=== PATIENT | female | born 1935 | race Caucasian/White ===

== ENCOUNTER 2016-09-16 13:14 | Inpatient (IN) | payer MEDICARE, BC, OTHER ==
[~2016-09-16] VITALS: Ht 152.4 cm; Wt 60.2 kg
[~2016-09-16 13:14] MED LIST: ALBU17IN INH; AMLO5TAB2 PO; ASPI1TAB PO; ATOR40TA75 PO; BUDE0.5S6 INH; CALCTAB68 PO; CARV12.5 PO; CATA0.2D TD; CEFU1TAB20 PO; CHLO125TA PO; FLON1SPR; LEVO75TA4 PO; LISI-538 PO; LISI10TA4 PO; MAGN250T7 PO; SERT50TA PO
[2016-09-16] MEDS ORDERED: CLAR10CA3 PO (13:43)
[2016-09-16] MEDS ORDERED: INCR1INH INH (13:43)
[2016-09-16] MEDS ORDERED: BREO1INH3 INH (13:43)
[2016-09-16] MEDS ORDERED: SPIR25TA2 PO (13:43)
[2016-09-16] MEDS ORDERED: methylPREDNISolone INJ 125 MG/2 ML VIAL (J2930) IV ONE (13:45)
[2016-09-16] MEDS ORDERED: IPRATROPIUM 0.5MG/ALBUTEROL 2.5MG INH SOL UD 3ML (DUONEB)(J7620) NEB PRN ×2 (13:45→18:45)
--- NOTE | 2016-09-16 14:13 | REP ---
Clinical: Dyspnea and cough. Technique: PA and lateral. Comparison: 09 11 15. Findings: Mediastinum and cardiac silhouette are stable. Bilateral lower lobe infiltrates and right pleural effusion identified. No pneumothorax. Skeletal structures demonstrate age-related changes. Impression: Acute lower lobe infiltrates and right pleural effusion. Signed by Michael Chang MD 09/16/2016 02:05 P
[2016-09-16] MEDS ORDERED: AZITHROMYCIN INJ 500 MG, VIAL MATE ADAPTER 1 EACH in D5W 250 ML IV ONE (14:30)
[2016-09-16] MEDS ORDERED: MOXIFLOXACIN HCL 400 MG in APPROPRIATE DILUENT 1 EA IV ONE (14:30)
[2016-09-16] MEDS ORDERED: MAGN1TAB25 PO (14:38)
[2016-09-16] MEDS ORDERED: AMLO5TAB2 PO (14:38)
[2016-09-16] MEDS ORDERED: CHLO25TA PO (14:38)
[2016-09-16] MEDS ORDERED: PROAAER10 INH (14:38)
[2016-09-16] MEDS ORDERED: LOSA100T36 PO (14:38)
[2016-09-16] MEDS ORDERED: MULT1CHW39 PO (14:38)
[2016-09-16 14:40] LABS: BASO # 0.1 K/mm3 (0.0-0.2); BASO % 0.2 % (0.0-1.0); EOS % 0.1 % (0.0-3.0); LARGE UNSTAINED CELL # 0.3 K/mm3 (0.0-0.4); LARGE UNSTAINED CELL % 0.9 % (0.0-4.0); LYMPH # 0.9 K/mm3 (1.5-4.5); MEAN CORPUSCULAR HEMOGLOBIN 30.9 pg (27.0-33.0); MEAN CORPUSCULAR HGB CONC 33.8 g/dl (32.0-36.5); MEAN CORPUSCULAR VOLUME 91.4 fl (80.0-96.0); MONO # 1.9 K/mm3 (0.0-0.8); MONO % 6.6 % (0.0-5.0); NEUTROPHILS # 25.6 K/mm3 (1.8-7.7); NEUTROPHILS % 89.2 % (36.0-66.0); PLATELET COUNT, AUTOMATED 223 k/mm3 (150-450); RED CELL DISTRIBUTION WIDTH 13.2 % (11.5-14.5); WHITE BLOOD COUNT 28.7 K/mm3 (4.0-10.0)
[2016-09-16 14:55] LABS: ABG BASE EXCESS -3.5 (-2.0-2.0); ABG HCO3 19.3 MEQ/L (22.0-26.0); ABG PARTIAL PRESSURE CO2 27.8 mmHg (35.0-45.0); ABG PARTIAL PRESSURE O2 59.8 mmHg (75.0-100.0); ABG STANDARD HCO3 21.4 MEQ/L (22.0-26.0); ABG TOTAL CO2 20.1 MEQ/L (23.0-31.0); ABG pH (ARTERIAL) 7.459 UNITS (7.350-7.450)
[2016-09-16 15:00] LABS: INR 1.15
[2016-09-16] MEDS ORDERED: cefTRIAXone SOD 1 GM in D5W MINI-BAG PLUS 50 ML IV ONE (15:00)
[2016-09-16 15:23] LABS: ALBUMIN 2.9 GM/DL (3.2-5.2); ALBUMIN/GLOBULIN RATIO 0.83 (1.00-1.93); ALKALINE PHOSPHATASE 89 U/L (45-117); ALT/SGPT 21 U/L (12-78); ANION GAP 10 MEQ/L (8-16); AST/SGOT 21 U/L (15-37); BILIRUBIN,DIRECT 0.3 MG/DL (0.0-0.2); BILIRUBIN,TOTAL 0.9 MG/DL (0.2-1.0); BLOOD UREA NITROGEN 40 MG/DL (7-18); CALCIUM LEVEL 8.7 MG/DL (8.8-10.2); CARBON DIOXIDE LEVEL 24 MEQ/L (21-32); CHLORIDE LEVEL 99 MEQ/L (98-107); CREATININE FOR GFR 1.79 MG/DL (0.55-1.02); GLOMERULAR FILTRATION RATE 28.9 (>32); GLUCOSE, FASTING 149 MG/DL (83-110); POTASSIUM SERUM 4.3 MEQ/L (3.5-5.1); SODIUM LEVEL 133 MEQ/L (136-145); THYROXINE (T4) 8.7 UG/DL (4.5-12.0); TOTAL PROTEIN 6.4 GM/DL (6.4-8.2)
[2016-09-16] MEDS ORDERED: FUROSEMIDE 100 MG/10 ML VIAL (J1940) IV ONE (15:30)
[2016-09-16] MEDS ORDERED: NS 1,000 ML IV SCH (19:00)
[2016-09-16 19:50] VITALS: BP 157/67
[2016-09-16] MEDS: FUROSEMIDE 40 MG/4 ML VIAL (J1940) IV SCH ×2 (20:24→23:52)
[2016-09-16] MEDS: amLODIPine 5 MG TAB PO SCH (20:25)
[2016-09-16] MEDS: ATORVASTATIN 20 MG TAB PO SCH (20:25)
[2016-09-16] MEDS: CARVedilol 12.5 MG TAB PO SCH (20:25)
[2016-09-16] MEDS: IPRATROPIUM 0.5MG/ALBUTEROL 2.5MG INH SOL UD 3ML (DUONEB)(J7620) NEB SCH (20:56)
[2016-09-16] MEDS: BUDESONIDE 0.5 MG/2 ML INHALATION SUSPENSION INH SCH (20:56)
[2016-09-16] MEDS: HEPARIN SOD (PORCINE) 5000 UNITS/ML VIAL SC SCH (21:37)
[2016-09-16] MEDS: methylPREDNISolone INJ 125 MG/2 ML VIAL (J2930) IV SCH (21:37)
--- NOTE | 2016-09-16 22:29 | HPE ---
DATE OF ADMISSION: 09/16/2016 CHIEF COMPLAINT: 81-year-old female coming in complaining of shortness of breath and cough. HISTORY OF PRESENT ILLNESS: This is a pleasant 81-year-old female with significant past history of coronary artery disease, congestive heart failure, she normally sees Dr. Bejarano and utilizes 2 liters of nasal cannula at night time, hypertension, hyperthyroidism, chronic kidney disease who presented complaining of shortness of breath over the weekend roughly 4 days ago. Patient also developed some cough, has subjective fever, felt warm, but has been afebrile in the emergency room. Patient had increased blood pressure but had been better controlled with medication adjustment by Dr. Bejarano. Denies any significant lower extremity swelling, denies any sick contacts, nausea, vomiting, chest pain, diarrhea or dysuria. Patient denies any travel history. She is currently on multiple diuretics including chlorthalidone and spironolactone, which seems to help with the congestive heart failure. Patient was evaluated in the emergency room, noted to have abnormal chest x-ray finding significant for possible pneumonia, elevated BNP, acute on chronic kidney disease, was started on empiric antibiotics of azithromycin and Rocephin and steroids was given and is being admitted for further evaluation and treatment. Patient does not seem to have a last known echocardiogram in the computer system. Patient is resting comfortably in the emergency room without any significant shortness of breath, able to provide medical history with help of granddaughter and cooperate with physical examination. REVIEW OF SYSTEMS: 10-point review of systems is negative other than those described in the history of present illness. PAST MEDICAL HISTORY: Significant for 1. Coronary artery disease. 2. Congestive heart failure. 3. Hypertension. 4. Hyperthyroidism. 5. History of vascular disease. SURGICAL HISTORY: Includes: 1. Kidney stent in the past. 2. Partial hysterectomy. 3. Cholecystectomy. 4. Thyroid surgery. 5. Aorta bifemoral bypass in the past. SOCIAL HISTORY: Patient currently denies smoking, drinking or drug abuse. Smoked in the past. ALLERGIES: Patient has no known drug allergies, although she is allergic to SHELLFISH. HOME MEDICATION: - albuterol sulfate 2 puff as needed - amlodipine 5 mg by mouth twice a day - aspirin 81 mg once a day - Atorvastatin 40 mg at bedtime - budesonide 0.5 mg inhalation twice a day - calcium with vitamin D combination of 600 + 400 mg/unit 1 tablet once a day - carvedilol 12.5 mg by mouth daily - chlorthalidone 25 mg by mouth daily - Breo 200/25 mcg 1 puff daily Ellipta 62.5 mcg once daily - [id number] mg every morning - loratadine 10 mg daily - losartan 50 mg by mouth twice a day - magnesium 200 mg by mouth daily - multivitamin one tablet once a day - sertraline 50 mg by mouth daily - spironolactone 25 mg daily FAMILY HISTORY: Not significant at this time due to her age. PHYSICAL EXAMINATION: Vital signs: Temperature 96., heart rate 66, respiratory rate 20, saturating 92%. Blood pressure 136/61. HEENT: Normocephalic, atraumatic. Normal inspection of the eyes, nose and throat. Pupils equal, round, and reactive to light and accommodation. Mucosa is moist. Neck is supple. No tracheal deviation. Cardiac: S1, S2. Regular rate and rhythm. Pulse is rhythm. Lungs: Equal air entry. Did not hear any wheezes, but did hear some fine crackles at the base bilaterally diffusely. Abdomen: Soft, non-tender, bowel sounds present. Lower extremity: No significant pitting edema. Capillary refill present. Skin: Intact. Warm to touch. Patient is currently awake, alert, oriented times three. Cranial nerves grossly intact. Motor and sensory is intact. Normal mood and affect for current situation. Granddaughter at the bed side. DIAGNOSTIC STUDY: Patient had a chest x-ray which showed acute lower lobe infiltrate and right pleural effusions. Suspected by emergency room physician for pneumonia. WBC 28.7, H H 10.5/31.1. Platelet count is within normal. Complete metabolic profile is within normal except for sodium 133, BUN 40, creatinine 1.79. Fasting glucose is 149. Lactic acid was elevated at 2.4, calcium was 8.7, direct bilirubin 0.3. Otherwise complete metabolic profile is within normal. Cardiac enzyme times one has been within normal. BNP is elevated 1,210. Total protein 6.4, albumin is 2.9, procalcitonin is pending at this time. TSH is within normal and thyroxine T4 within normal. Her coagulation studies INR is within normal, PT of 14.9, blood gas showed a pH of 7.459, bicarbonate of 19.3, PCO2 of 27.8, Oxygen of 59.8, saturating 90.9. Blood cultures and sputum cultures are pending at this time. ASSESSMENT AND PLAN: This is an 81-year-old pleasant female with significant past medical history of coronary artery disease, congestive heart failure, hypertension; normally sees Dr. Bejarano as an outpatient, utilizes chronic 2 liters at night time for chronic obstructive pulmonary disease, hyperthyroidism, chronic anemia and chronic kidney disease who presents complaining of shortness of breath and cough and sputum. 1. Right sided pneumonia versus congestive heart failure with underlying chronic obstructive pulmonary disease and chronic use of 2 liters of nasal cannula at night time for possible pending sepsis due to leukocytosis and lactic acidosis. Patient will utilize respiratory treatment oxygen as needed, blood culture and sputum culture is pending at this time, empiric antibiotic of azithromycin and Rocephin, and will treat the congestive heart failure with telemetry, serial cardiac enzyme, IV Lasix, daily weights and ins outs monitoring. Will judicially use IV fluid to treat for possible pneumonia and sepsis pending as patient also seems to also have fluid overload as well. We will hold home medication of chlorthalidone and Losartan and spirolactone and utilize IV Lasix instead. Will further evaluate with echocardiogram. 2. . Chronic anemia. Continue to monitor. 3. Acute on chronic kidney disease. Utilize Lasix judicially. Consult Dr. Guthrie as needed. 4. Coronary artery disease, hypertension and congestive heart failure. Resume amlodipine, aspirin and statin but hold chlorthalidone, Losartan and spironolactone and utilize Lasix IV instead. 5. Hypothyroidism. Resume Synthroid. 6. Resume sertraline. 7. Deep vein thrombosis prophylaxis. I have spoken to the patient and the granddaughter. Patient does seem to have advanced directive but at this time patient request that she be FULL CODE. We will abide by patients wishes.
[2016-09-17] VITALS: BP 132/60
[2016-09-17] MEDS: IPRATROPIUM 0.5MG/ALBUTEROL 2.5MG INH SOL UD 3ML (DUONEB)(J7620) NEB SCH ×4 (02:24→20:00)
[2016-09-17 03:36] LABS: MEAN CORPUSCULAR HEMOGLOBIN 31.1 pg (27.0-33.0); MEAN CORPUSCULAR HGB CONC 34.4 g/dl (32.0-36.5); MEAN CORPUSCULAR VOLUME 90.5 fl (80.0-96.0); RED CELL DISTRIBUTION WIDTH 13.1 % (11.5-14.5); WHITE BLOOD COUNT 29.4 K/mm3 (4.0-10.0)
[2016-09-17] MEDS: FUROSEMIDE 40 MG/4 ML VIAL (J1940) IV SCH ×3 (03:39→12:25)
[2016-09-17 03:56] LABS: CALCIUM LEVEL 8.4 MG/DL (8.8-10.2); CREATININE FOR GFR 1.96 MG/DL (0.55-1.02); POTASSIUM SERUM 3.6 MEQ/L (3.5-5.1)
[2016-09-17 04:00] VITALS: BP 136/64
[2016-09-17] MEDS: methylPREDNISolone INJ 125 MG/2 ML VIAL (J2930) IV SCH ×3 (06:25→20:33)
[2016-09-17] MEDS: LEVOTHYROXINE 75MCG TABLET (0.075MG) PO SCH (06:25)
[2016-09-17] MEDS: HEPARIN SOD (PORCINE) 5000 UNITS/ML VIAL SC SCH ×3 (06:25→20:33)
--- NOTE | 2016-09-17 07:35 | ECGEPIP ---
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
[2016-09-17 08:00] VITALS: BP 151/67
[2016-09-17] MEDS: amLODIPine 5 MG TAB PO SCH ×2 (09:08→20:32)
[2016-09-17] MEDS: LORATADINE 10 MG TAB PO SCH (09:08)
[2016-09-17] MEDS: ASPIRIN 81 MG ENTERIC TAB PO SCH (09:08)
[2016-09-17] MEDS: SERTRALINE HCL 50 MG TAB PO SCH (09:08)
[2016-09-17] MEDS: CARVedilol 12.5 MG TAB PO SCH ×2 (09:09→20:32)
[2016-09-17] MEDS: BUDESONIDE 0.5 MG/2 ML INHALATION SUSPENSION INH SCH ×2 (09:20→20:18)
--- NOTE | 2016-09-17 10:52 | ECGEPIP ---
Stationary ECG Study [facility] Test Date: 2016-09-16 Pat Name: MODESTO BARRIOS Department: Room: [place] [address] Gender: F Veterinary Surgeon: RITU : 1935 Requested By: FELISHA HERMOSILLO Order Number: [id number] Reading MD: Cyn Pyle Measurements Intervals [place] Rate: 68 P: 48 NE: 156 QRS: 38 QRSD: 85 T: 38 QT: 374 QTc: 398 Interpretive Statements SINUS RHYTHM POSSIBLE LEFT ATRIAL ENLARGEMENT POSSIBLE LEFT VENTRICULAR HYPERTROPHY INCREASED VOLTAGE T WAVE C/W 09/16/16 Electronically Signed On 09-17-2016 10:52:36 EDT by Cyn Pyle
[2016-09-17 12:00] VITALS: BP 135/75
[2016-09-17] MEDS: AZITHROMYCIN 250 MG TAB PO SCH (13:22)
[2016-09-17] MEDS ORDERED: AZITHROMYCIN INJ 500 MG, VIAL MATE ADAPTER 1 EACH in D5W 250 ML IV SCH (14:00)
--- NOTE | 2016-09-17 14:17 | IPNPDOC ---
Subjective Date Seen The patient was seen on 09/17/16. Subjective Chief Complaint/HPI The patient is a 81-year-old female admitted with a reason for visit of Congestive Heart Failure, Pneumonia. Events since last encounter feeling better this am , cough better though still has some blood flecs in the sputum. had good diuresis overnight. no fever or chills, no chest pain, no abdominal pain , nausea or vomiting. Objective Physical Examination General Exam: Positive: Alert, Cooperative, No Acute Distress Eye Exam: Positive: PERRLA, Conjunctiva & lids normal, EOMI, Negative: Sclera icteric ENT Exam: Positive: Atraumatic, Mucous membr. moist/pink, Pharynx Normal Neck Exam: Positive: Supple, Negative: JVD, thyromegaly Chest Exam: Positive: Rales (in both the bases more on the left. ), Diminished (on the right base) Heart Exam: Positive: Rate Normal, Regular Rhythm, Normal S1, Normal S2, Negative: Murmurs, Rubs Telemetry: Positive: No significant arrhythmia Abdomen Exam: Positive: Normal bowel sounds, Soft, Negative: Tenderness, Hepatospenomegaly Extremity Exam: Positive: Normal pulses, Negative: Clubbing, Cyanosis, Edema Skin Exam: Positive: Nl turgor and temperature, Negative: Rash, Breakdown Assessment /Plan Problems (1) Congestive heart failure (CHF) Status: Acute Problem Text: acute on chronic diastolic heart failure will continue with IV lasix. (2) Pneumonia Status: Acute Problem Text: will continue with ceftriaxone and azithromycin. (3) Chronic respiratory failure with hypoxia Status: Chronic Problem Text: continue oxygen by nasal canula normally uses 2 litrs at home. (4) CAD (coronary artery disease) Status: Chronic (5) Hypertension Status: Chronic (6) PAD (peripheral artery disease) Status: Chronic Problem Text: with history of aorto ileal bypass. (7) Acute kidney injury superimposed on CKD Status: Acute Problem Text: slightly worse than baseline possibly due to heart failure and pneumonia (8) Hyperlipidemia Status: Chronic (9) Hypothyroid Status: Chronic (10) Pulmonary hypertension Status: Chronic (11) Mitral regurgitation Status: Chronic (12) Aortic regurgitation Status: Chronic (13) Aortic stenosis, mild Status: Chronic Plan/VTE VTE Prophylaxis Ordered?: Yes VS, I&O, 24H, Fishbone Vital Signs/I&O Vital Signs Date Time Temp Pulse Resp B/P (MAP) Pulse Ox O2 Delivery O2 Flow Rate FiO2 09/17/16 12:00 98.2 59 20 135/75 (95) 92 Nasal Cannula 2.0 I&O- Last 24 Hours up to 6 AM 09/17/16 06:00 Intake Total 400 ml Output Total 1100 ml Balance -700 ml Laboratory Data 24H LABS Laboratory Tests 2 09/16/16 14:34: 09/16/16 14:36: Blood Gas Bicarbonate Standard 21.4L, Arterial Blood pH 7.459H, Arterial Blood Partial Pressure CO2 27.8L, Arterial Blood Partial Pressure O2 59.8L, Arterial Blood Total CO2 20.1L, Arterial Blood HCO3 19.3L, Arterial Blood Base Excess - 3.5L, Arterial Blood Oxygen Saturation 90.9L 09/16/16 14:39: Prothrombin Time 14.9H, Prothromb Time International Ratio 1.15, Anion Gap 10, Glomerular Filtration Rate 28.9L, Calcium Level 8.7L, Aspartate Amino Transf ( AST/SGOT) 21, Alanine Aminotransferase (ALT/SGPT) 21, Alkaline Phosphatase 89, Total Bilirubin 0.9, Direct Bilirubin 0.3H, Total Creatine Kinase 93, Creatine Kinase MB 2.8, Creatine Kinase MB Relative Index 3.01, Troponin I < 0.02, Total Protein 6.4, Albumin 2.9L, Albumin/Globulin Ratio 0.83L, Thyroid Stimulating Hormone (TSH) 0.752, Thyroxine (T4) 8.7 09/16/16 18:37: Lactic Acid Followup at 4 Hours 1.4 09/16/16 20:48: Total Creatine Kinase 111, Creatine Kinase MB 3.2, Creatine Kinase MB Relative Index 2.88, Troponin I < 0.02 09/17/16 01:04: 09/17/16 03:29: Total Creatine Kinase 99, Creatine Kinase MB 4.2H, Creatine Kinase MB Relative Index 4.24H, Anion Gap 10, Glomerular Filtration Rate 26.0L, Blood Urea Nitrogen 46H, Creatinine 1.96H, Sodium Level 135L, Potassium Level 3.6, Chloride Level 101, Carbon Dioxide Level 24, Calcium Level 8.4L 09/17/16 09:41: Total Creatine Kinase 92, Creatine Kinase MB 5.1H, Creatine Kinase MB Relative Index 5.54H CBC/BMP Laboratory Tests 09/16/16 14:39 09/17/16 03:29 Red Blood Count 3.35 L, Mean Corpuscular Volume 90.5, Mean Corpuscular Hemoglobin 31.1, Mean Corpuscular Hemoglobin Concent 34.4, Red Cell Distribution Width 13.1, Calcium Level 8.4 L Microbiology Microbiology 09/16/16 Blood Culture, Received Pending 09/16/16 Blood Culture, Received Pending 09/16/16 Influenza Virus Type A Antigen - Final, Complete 09/16/16 Influenza Virus Type B Antigen - Final, Complete 09/16/16 Gram Stain - Final, Resulted 09/16/16 Sputum Culture, Resulted Pending FELISHA HERMOSILLO MD Sep 17, 2016 14:17
[2016-09-17] MEDS: cefTRIAXone SOD 2 GM in D5W MINI-BAG PLUS 50 ML IV SCH (16:53)
[2016-09-17] MEDS ORDERED: FUROSEMIDE 100 MG/10 ML VIAL (J1940) IV SCH (17:00)
[2016-09-17] MEDS: ATORVASTATIN 20 MG TAB PO SCH (20:32)
[2016-09-17 22:00] VITALS: BP 128/63
[2016-09-18] MEDS: IPRATROPIUM 0.5MG/ALBUTEROL 2.5MG INH SOL UD 3ML (DUONEB)(J7620) NEB SCH ×4 (02:00→20:14)
[2016-09-18] MEDS: HEPARIN SOD (PORCINE) 5000 UNITS/ML VIAL SC SCH ×3 (06:00→22:26)
[2016-09-18] MEDS: LEVOTHYROXINE 75MCG TABLET (0.075MG) PO SCH (06:00)
[2016-09-18] MEDS: methylPREDNISolone INJ 125 MG/2 ML VIAL (J2930) IV SCH (06:00)
[2016-09-18 06:36] VITALS: BP 134/62
[2016-09-18 06:51] LABS: MEAN CORPUSCULAR HEMOGLOBIN 29.9 pg (27.0-33.0); MEAN CORPUSCULAR HGB CONC 33.9 g/dl (32.0-36.5); MEAN CORPUSCULAR VOLUME 88.4 fl (80.0-96.0)
[2016-09-18 07:00] LABS: WHITE BLOOD COUNT 37.9 K/mm3 (4.0-10.0)
[2016-09-18] MEDS: BUDESONIDE 0.5 MG/2 ML INHALATION SUSPENSION INH SCH ×2 (07:04→20:14)
[2016-09-18 07:15] LABS: CALCIUM LEVEL 8.9 MG/DL (8.8-10.2); CREATININE FOR GFR 2.23 MG/DL (0.55-1.02); GLOMERULAR FILTRATION RATE 22.4 (>32); POTASSIUM SERUM 2.8 MEQ/L (3.5-5.1)
[2016-09-18] MEDS ORDERED: POTASSIUM CHLORIDE 10 MEQ SR TABLET PO ONE (08:00)
[2016-09-18] MEDS: ASPIRIN 81 MG ENTERIC TAB PO SCH (08:20)
[2016-09-18] MEDS: AZITHROMYCIN 250 MG TAB PO SCH (08:20)
[2016-09-18] MEDS: LORATADINE 10 MG TAB PO SCH (08:20)
[2016-09-18] MEDS: SERTRALINE HCL 50 MG TAB PO SCH (08:20)
[2016-09-18] MEDS: amLODIPine 5 MG TAB PO SCH ×2 (08:21→21:55)
[2016-09-18] MEDS: CARVedilol 12.5 MG TAB PO SCH ×2 (08:21→21:55)
--- NOTE | 2016-09-18 10:39 | IPNPDOC ---
Subjective Date Seen The patient was seen on 09/18/16. Subjective Chief Complaint/HPI The patient is a 81-year-old female admitted with a reason for visit of Congestive Heart Failure, Pneumonia. Events since last encounter patient feels much better. appetite has improved, no fever or chills, cough better though still has some sore throat. no nausea or vomiting or diarrhea, no abdominal pain Objective Physical Examination General Exam: Positive: Alert, Cooperative, No Acute Distress Eye Exam: Positive: PERRLA, Conjunctiva & lids normal, EOMI, Negative: Sclera icteric ENT Exam: Positive: Atraumatic, Mucous membr. moist/pink, Pharynx Normal Neck Exam: Positive: Supple, Negative: JVD, thyromegaly Chest Exam: Positive: Rales (in both the bases more on the left. ), Diminished (on the right base) Heart Exam: Positive: Rate Normal, Regular Rhythm, Normal S1, Normal S2, Negative: Murmurs, Rubs Telemetry: Positive: No significant arrhythmia Abdomen Exam: Positive: Normal bowel sounds, Soft, Negative: Tenderness, Hepatospenomegaly Extremity Exam: Positive: Normal pulses, Negative: Clubbing, Cyanosis, Edema Skin Exam: Positive: Nl turgor and temperature, Negative: Rash, Breakdown Assessment /Plan Problems (1) Congestive heart failure (CHF) Status: Acute Problem Text: acute on chronic diastolic heart failure appears close to euvolemia today , creatinine worsened significantly so will hold lasix. (2) Pneumonia Status: Acute Problem Text: will continue with ceftriaxone and azithromycin. (3) Chronic respiratory failure with hypoxia Status: Chronic Problem Text: continue oxygen by nasal canula normally uses 2 litrs at home. (4) CAD (coronary artery disease) Status: Chronic (5) Hypertension Status: Chronic (6) PAD (peripheral artery disease) Status: Chronic Problem Text: with history of bilateral aorto ileal bypass. (7) Acute kidney injury superimposed on CKD Status: Acute Problem Text: creatinine worse today . will hold diuretics today. (8) Hyperlipidemia Status: Chronic (9) Hypothyroid Status: Chronic (10) Pulmonary hypertension Status: Chronic (11) Mitral regurgitation Status: Chronic (12) Aortic regurgitation Status: Chronic (13) Aortic stenosis, mild Status: Chronic (14) Leucocytosis Status: Acute Problem Text: possibly due to infection and steroids will dc steroids today. patient will need follow up WBC in 2 to 3 weeks to see whether is has normalized or not. If continues to be persistently elevated may need referral to gallery assistant for evaluation. (15) Hypokalemia Status: Acute Problem Text: replaced. Plan/VTE VTE Prophylaxis Ordered?: Yes VS, I&O, 24H, Fishbone Vital Signs/I&O Vital Signs Date Time Temp Pulse Resp B/P (MAP) Pulse Ox O2 Delivery O2 Flow Rate FiO2 09/18/16 08:21 63 134/62 09/18/16 06:36 97.3 18 97 Nasal Cannula 2.0 I&O- Last 24 Hours up to 6 AM 09/18/16 06:00 Intake Total 690 ml Output Total 2200 ml Balance -1510 ml Laboratory Data 24H LABS Laboratory Tests 2 09/18/16 06:16: Anion Gap 12, Glomerular Filtration Rate 22.4L, Blood Urea Nitrogen 71#H, Creatinine 2.23H, Sodium Level 136, Potassium Level 2.8#*L, Chloride Level 98, Carbon Dioxide Level 26, Calcium Level 8.9 CBC/BMP Laboratory Tests 09/18/16 06:16 Red Blood Count 3.47 L, Mean Corpuscular Volume 88.4, Mean Corpuscular Hemoglobin 29.9, Mean Corpuscular Hemoglobin Concent 33.9, Red Cell Distribution Width 13.0, Calcium Level 8.9 Microbiology Microbiology 09/16/16 Blood Culture - Preliminary, Resulted No growth after 24 hours . All specim... 09/16/16 Blood Culture - Preliminary, Resulted No growth after 24 hours . All specim... 09/16/16 Influenza Virus Type A Antigen - Final, Complete 09/16/16 Influenza Virus Type B Antigen - Final, Complete 09/16/16 Gram Stain - Final, Resulted 09/16/16 Sputum Culture, Resulted Pending FELISHA HERMOSILLO MD Sep 18, 2016 10:39
[2016-09-18 14:00] VITALS: BP 134/63
[2016-09-18] MEDS: cefTRIAXone SOD 2 GM in D5W MINI-BAG PLUS 50 ML IV SCH (16:03)
[2016-09-18 20:15] VITALS: O2SAT 88
[2016-09-18 21:30] VITALS: BP 141/63
[2016-09-18] MEDS: ATORVASTATIN 20 MG TAB PO SCH (21:54)
[2016-09-19] MEDS: IPRATROPIUM 0.5MG/ALBUTEROL 2.5MG INH SOL UD 3ML (DUONEB)(J7620) NEB SCH ×4 (02:00→23:11)
[2016-09-19] MEDS: HEPARIN SOD (PORCINE) 5000 UNITS/ML VIAL SC SCH ×2 (05:33→17:14)
[2016-09-19] MEDS: LEVOTHYROXINE 75MCG TABLET (0.075MG) PO SCH (05:33)
[2016-09-19 05:58] LABS: MEAN CORPUSCULAR HEMOGLOBIN 30.6 pg (27.0-33.0); MEAN CORPUSCULAR HGB CONC 34.7 g/dl (32.0-36.5); MEAN CORPUSCULAR VOLUME 88.4 fl (80.0-96.0); RED CELL DISTRIBUTION WIDTH 13.4 % (11.5-14.5); WHITE BLOOD COUNT 29.9 K/mm3 (4.0-10.0)
[2016-09-19 06:00] VITALS: BP 142/36
[2016-09-19 06:06] LABS: CREATININE FOR GFR 1.99 MG/DL (0.55-1.02); GLOMERULAR FILTRATION RATE 25.5 (>32); POTASSIUM SERUM 3.2 MEQ/L (3.5-5.1)
[2016-09-19] MEDS: BUDESONIDE 0.5 MG/2 ML INHALATION SUSPENSION INH SCH (08:01)
[2016-09-19] MEDS: TIOTROPIUM INHALER/CAPSULE (SPIRIVA) INH SCH (09:10)
[2016-09-19] MEDS: POTASSIUM CHLORIDE 10 MEQ SR TABLET PO SCH (09:24)
[2016-09-19] MEDS: AZITHROMYCIN 250 MG TAB PO SCH (09:25)
[2016-09-19] MEDS: SERTRALINE HCL 50 MG TAB PO SCH (09:25)
[2016-09-19] MEDS: LORATADINE 10 MG TAB PO SCH (09:25)
[2016-09-19] MEDS: amLODIPine 5 MG TAB PO SCH ×2 (09:28→21:17)
[2016-09-19] MEDS: ASPIRIN 81 MG ENTERIC TAB PO SCH (09:29)
[2016-09-19] MEDS: CARVedilol 12.5 MG TAB PO SCH ×2 (09:29→21:17)
--- NOTE | 2016-09-19 09:39 | IPNPDOC ---
Subjective Date Seen The patient was seen on 09/19/16. Subjective Chief Complaint/HPI The patient is a 81-year-old female admitted with a reason for visit of Congestive Heart Failure, Pneumonia. Events since last encounter feeling much better though still requiring oxygen during the day . normally she uses oxygen only during the night. still having some bouts of coughing. Objective Physical Examination General Exam: Positive: Alert, Cooperative, No Acute Distress Eye Exam: Positive: PERRLA, Conjunctiva & lids normal, EOMI, Negative: Sclera icteric ENT Exam: Positive: Atraumatic, Mucous membr. moist/pink, Pharynx Normal Neck Exam: Positive: Supple, Negative: JVD, thyromegaly Chest Exam: Positive: Rales (in both the bases more on the left. ), Diminished (on the right base) Heart Exam: Positive: Rate Normal, Regular Rhythm, Normal S1, Normal S2, Negative: Murmurs, Rubs Telemetry: Positive: No significant arrhythmia Abdomen Exam: Positive: Normal bowel sounds, Soft, Negative: Tenderness, Hepatospenomegaly Extremity Exam: Positive: Normal pulses, Negative: Clubbing, Cyanosis, Edema Skin Exam: Positive: Nl turgor and temperature, Negative: Rash, Breakdown Assessment /Plan Problems (1) Pneumonia Status: Acute Problem Text: will continue with ceftriaxone and azithromycin. (2) Congestive heart failure (CHF) Status: Resolved Problem Text: acute on chronic diastolic heart failure appears be to euvolemic today , creatinine worsened significantly so lasix stopped (3) Chronic respiratory failure with hypoxia Status: Chronic Problem Text: continue oxygen by nasal canula normally uses 2 litrs at home. (4) CAD (coronary artery disease) Status: Chronic (5) Hypertension Status: Chronic (6) PAD (peripheral artery disease) Status: Chronic Problem Text: with history of bilateral aorto ileal bypass. (7) Acute kidney injury superimposed on CKD Status: Acute Problem Text: creatinine worse than baseline . will hold diuretics. (8) Hyperlipidemia Status: Chronic (9) Hypothyroid Status: Chronic (10) Pulmonary hypertension Status: Chronic (11) Mitral regurgitation Status: Chronic (12) Aortic regurgitation Status: Chronic (13) Aortic stenosis, mild Status: Chronic (14) Leucocytosis Status: Acute Problem Text: possibly due to infection and steroids will dc steroids today. patient will need follow up WBC in 2 to 3 weeks to see whether is has normalized or not. If continues to be persistently elevated may need referral to thermoscrew operator for evaluation. (15) Hypokalemia Status: Acute Problem Text: replaced. (16) MATIAS (obstructive sleep apnea) Status: Chronic Problem Text: uses nocturnal oxygen only. Plan/VTE VTE Prophylaxis Ordered?: Yes VS, I&O, 24H, Fishbone Vital Signs/I&O Vital Signs Date Time Temp Pulse Resp B/P (MAP) Pulse Ox O2 Delivery O2 Flow Rate FiO2 09/19/16 09:29 67 144/67 09/19/16 06:00 98.1 17 92 Nasal Cannula 4.0 I&O- Last 24 Hours up to 6 AM 09/19/16 06:00 Intake Total 920 ml Output Total 650 ml Balance 270 ml Laboratory Data 24H LABS Laboratory Tests 2 09/18/16 17:29: Bedside Glucose (Misc Panel) 185H 09/19/16 05:22: Anion Gap 10, Glomerular Filtration Rate 25.5L, Blood Urea Nitrogen 79H, Creatinine 1.99H, Sodium Level 135L, Potassium Level 3.2L, Chloride Level 100, Carbon Dioxide Level 25, Calcium Level 9.0 CBC/BMP Laboratory Tests 09/19/16 05:22 Red Blood Count 3.21 L, Mean Corpuscular Volume 88.4, Mean Corpuscular Hemoglobin 30.6, Mean Corpuscular Hemoglobin Concent 34.7, Red Cell Distribution Width 13.4, Calcium Level 9.0 Microbiology Microbiology 09/16/16 Blood Culture - Preliminary, Resulted No Growth after 48 hours. All Specime... 09/16/16 Blood Culture - Preliminary, Resulted No Growth after 48 hours. All Specime... 09/18/16 Gram Stain - Final, Resulted 09/18/16 Sputum Culture, Resulted Pending 09/16/16 Influenza Virus Type A Antigen - Final, Complete 09/16/16 Influenza Virus Type B Antigen - Final, Complete 09/16/16 Gram Stain - Final, Complete 09/16/16 Sputum Culture - Final, Complete Stenotrophomonas Maltophilia FELISHA HERMOSILLO MD Sep 19, 2016 09:39
[2016-09-19 14:00] VITALS: BP 138/46
--- NOTE | 2016-09-19 14:31 | ECHO ---
DATE OF STUDY: 09/19/2016 REFERRING PHYSICIAN: Dr. Sally Santos INDICATION: Dyspnea. HEIGHT: 150 cm WEIGHT: 60.1 kg 2D MEASUREMENTS: Aortic root: 2.5 cm Ventricular septum: 1.10 cm Posterior wall: 1.10 cm Left ventricle diastole: 3.5 cm Left atrium: 4.4 cm LVOT: 1.5 cm Inferior vena cava: 1.7 cm (more than 50% respiratory duration) DOPPLER MEASUREMENTS: Aortic valve velocity: 299 cm/s Peak aortic valve gradient: 36 mmHg Mean aortic valve gradient: 22 mmHg Aortic valve VTI: 74.4 cm Aortic stenosis dimensionless index: 0.50 LVOT velocity: 136 cm/s LVOT VTI: 37.5 cm Trace mitral regurgitation. Mitral A velocity (CW): 199 cm/s Mean mitral valve gradient: 7 mmHg Mitral E velocity (PW): 160 cm/s Mitral A velocity: 176 cm/s (PW) Mitral deceleration time: 363 ms (PW) Very mild tricuspid regurgitation. Pulmonary artery systolic pressure: 31 mmHg (by pulmonary acceleration time method) MITRAL ANNULAR TISSUE DOPPLER: E prime septal: 4.7 cm/s DESCRIPTION: Rhythm was sinus. Appearance of right bundle branch block type morphology. No pericardial effusion. Image quality was adequate. CONCLUSIONS: 1. Severe mitral annular calcification. Mild mitral stenosis. Trace mitral regurgitation. Mass associated with the mitral leaflet that appeared dense and was most suggestive of loose or broken chordae, vegetation less likely. Mild mitral stenosis. Trace mitral regurgitation. 2. Moderate focal thickening and focal calcific deposits of a 3-cusp aortic valve. Mild aortic stenosis. No aortic regurgitation. 3. Normal left ventricle wall thickness and regional wall motion. Normal left ventricle (LV) systolic function. Left ventricular ejection fraction (LVEF) 65% - 70% by visual estimate. Grade 1 LV diastolic dysfunction (impaired relaxation filling pattern). 4. Moderate left atrial dilatation. 5. Suggestive of mild elevation of pulmonary artery systolic pressure. MTDD
[2016-09-19] MEDS: cefTRIAXone SOD 2 GM in D5W MINI-BAG PLUS 50 ML IV SCH (15:46)
[2016-09-19] MEDS: SYMBICORT 80/4.5MCG INHALER 6GM INH SCH (20:00)
[2016-09-19] MEDS: ATORVASTATIN 20 MG TAB PO SCH (21:17)
[2016-09-19 22:00] VITALS: BP 125/52
[2016-09-20] MEDS: LEVOTHYROXINE 75MCG TABLET (0.075MG) PO SCH (05:37)
[2016-09-20] MEDS: HEPARIN SOD (PORCINE) 5000 UNITS/ML VIAL SC SCH (05:38)
[2016-09-20 06:00] VITALS: BP 148/55
[2016-09-20 06:20] LABS: MEAN CORPUSCULAR HEMOGLOBIN 30.1 pg (27.0-33.0); MEAN CORPUSCULAR VOLUME 88.4 fl (80.0-96.0); RED CELL DISTRIBUTION WIDTH 13.2 % (11.5-14.5); WHITE BLOOD COUNT 26.2 K/mm3 (4.0-10.0)
[2016-09-20 06:50] LABS: CREATININE FOR GFR 1.55 MG/DL (0.55-1.02); GLOMERULAR FILTRATION RATE 34.1 (>32); POTASSIUM SERUM 3.5 MEQ/L (3.5-5.1)
[2016-09-20] MEDS ORDERED: LEVO250T12 PO (07:30)
[2016-09-20] MEDS: TIOTROPIUM INHALER/CAPSULE (SPIRIVA) INH SCH (07:51)
[2016-09-20] MEDS: SYMBICORT 80/4.5MCG INHALER 6GM INH SCH (07:53)
[2016-09-20] MEDS: IPRATROPIUM 0.5MG/ALBUTEROL 2.5MG INH SOL UD 3ML (DUONEB)(J7620) NEB SCH (07:58)
[2016-09-20] MEDS ORDERED: LevoFLOXacin 500 MG TABLET PO ONE (08:00)
[2016-09-20] MEDS: POTASSIUM CHLORIDE 10 MEQ SR TABLET PO SCH (08:23)
[2016-09-20] MEDS: ASPIRIN 81 MG ENTERIC TAB PO SCH (08:23)
[2016-09-20] MEDS: SERTRALINE HCL 50 MG TAB PO SCH (08:23)
[2016-09-20] MEDS: LORATADINE 10 MG TAB PO SCH (08:23)
[2016-09-20 08:24] VITALS: BP 148/55
[2016-09-20] MEDS: CARVedilol 12.5 MG TAB PO SCH (08:24)
[2016-09-20] MEDS: amLODIPine 5 MG TAB PO SCH (08:24)
--- NOTE | 2016-09-20 23:18 | DSES ---
DATE OF ADMISSION: 09/16/2016 DATE OF DISCHARGE: 09/20/2016 PRIMARY CARE PROVIDER: Manny Johnson MD. BUSINESS CONTINUITY MANAGER: Dr Lori MD. TEAMCENTER CONSULTANT: Stephan Bejarano MD. DISCHARGE DIAGNOSES: 1. Community-acquired pneumonia. 2. Acute on chronic diastolic congestive heart failure. 3. Chronic respiratory failure with hypoxia. 4. Obstructive sleep apnea, uses nocturnal oxygen only. 5. Coronary artery disease. 6. Hypertension. 7. Peripheral arterial disease with history of bilateral aortofemoral bypass. 8. Acute kidney injury on chronic kidney disease. 9. Hyperlipidemia. 10. Hypothyroid. 11. Mild to moderate pulmonary hypertension. 12. Mild aortic stenosis. 13. Mild mitral stenosis and trace mitral regurgitation. 14. Mass associated with mitral leaflet suggestive of a broken chordae. 15. Leukocytosis possibly steroid and infection related. DISCHARGE MEDICATIONS: - levofloxacin 250 mg by mouth daily for 3 days - albuterol sulfate two-puff inhalation as needed for shortness of breath - amlodipine 5 mg by mouth twice a day - aspirin 81 mg by mouth daily - atorvastatin 40 mg at bedtime - budesonide nebulizer solution 0.5 mg twice a day - calcium/vitamin D one tablet by mouth daily - Coreg 12.5 mg twice a day - chlorthalidone 25 mg by mouth daily - Breo Ellipta 200/25 one-puff inhalation daily - Incruse Ellipta 62.5 mcg inhalation daily - Synthroid 75 mcg by mouth daily - loratadine 10 mg by mouth daily - magnesium oxide 200 mg by mouth daily - multivitamin one tablet by mouth daily - sertraline 50 mg by mouth daily - spironolactone 25 mg by mouth daily HOSPITAL COURSE: This is an 81-year-old female presented to the hospital with severe bouts of coughing and increasing shortness of breath for about 4 days. Patient was found to have community-acquired pneumonia and started on ceftriaxone and azithromycin and on the day of admission patient was also felt to be mildly fluid overloaded with acute on chronic diastolic congestive heart failure, so received intravenous (IV) Lasix. Patient's symptoms improved with antibiotics and Lasix. Patient did well during the hospitalization. During hospitalization , patient was also noted to have creatinine elevated from her baseline and was diagnosed with acute kidney injury on chronic kidney disease, so the patient's diuretics were held, as well as losartan was discontinued. Her blood pressure remained controlled even without losartan. Patient's oxygen requirement decreased to her baseline levels and her symptoms resolved. Patient was noted to have extremely high leukocytosis up to a peak of 37.9. After discontinuing patient's steroids and continuing her on antibiotics, her white blood cell (WBC) count did decrease to 26.2; however, patient should have a repeat complete blood count (CBC) in 1-2 weeks' time to make sure her WBC count is appropriately coming down. If patient continues to have elevated WBC count, patient would probably need referral to a community development coordinator for evaluation of leukocytosis. On the day of discharge, patient was stable without any complaints and functionally she was at her baseline. PHYSICAL EXAMINATION: VITAL SIGNS: Temperature 97.9, pulse 71, respiratory rate 15, blood pressure 148/55, pulse oximetry 88% on 2 liters nasal cannula. GENERAL: Patient awake, alert, oriented times three, sitting up in chair in no acute distress. HEENT: Normocephalic, atraumatic. Moist mucous membranes. Anicteric eyes. CHEST: There are some basal crackles present, otherwise clear to auscultation. CARDIOVASCULAR: S1, S2 regular. No rub, murmur or gallop. ABDOMEN: Obese, soft, nontender, bowel sounds present. EXTREMITIES: No edema. LABORATORY DATA: WBC 26.2, hemoglobin 9.8, platelets 300. Sodium 139, potassium 3.5, chloride 104, bicarbonate 26, BUN 68, creatinine 1.55 , glucose 100, calcium 9. Microbiology: Blood cultures are negative after 72 hours. Flu was negative. Gram stain from the sputum grew Stenotrophomonas maltophilia. DISPOSITION: Patient is discharged home in a stable condition. DISCHARGE INSTRUCTIONS: Patient to followup with primary care provider in 1 week. Regular diet. Activity as tolerated. MTDD
== END 2016-09-20 12:59 | disposition home health service (06) | DRG 193 ==
LOC: M ED 13:14 → M ED INP 18:29 → M MSPAV 09-17 15:40
PROVIDERS: ADMIT Internal Medicine; ATTEND Internal Medicine Nephrology
DX: J18.9 Pneumonia, unspecified organism (principal); I50.33 Acute on chronic diastolic (congestive) heart failure; N17.9 Acute kidney failure, unspecified; J96.11 Chronic respiratory failure with hypoxia; I13.0 Hypertensive heart and chronic kidney disease with heart failure and stage 1 through stage 4 chronic kidney disease, or unspecified chronic kidney disease; G47.33 Obstructive sleep apnea (adult) (pediatric); I25.10 Atherosclerotic heart disease of native coronary artery without angina pectoris; D72.829 Elevated white blood cell count, unspecified; N18.9 Chronic kidney disease, unspecified; E78.5 Hyperlipidemia, unspecified; E03.9 Hypothyroidism, unspecified; Z79.82 Long term (current) use of aspirin; Z79.899 Other long term (current) drug therapy; Z90.49 Acquired absence of other specified parts of digestive tract; Z90.711 Acquired absence of uterus with remaining cervical stump; Z95.9 Presence of cardiac and vascular implant and graft, unspecified; Z96.0 Presence of urogenital implants; Z91.013 Allergy to seafood

== ENCOUNTER → 2017-03-22 | Outpatient (CLI) | payer MEDICARE, BC, OTHER | LOC: M SMT 14:10 | DX: R91.8 Other nonspecific abnormal finding of lung field (principal) | CPT/HCPCS: 71046 ==

== ENCOUNTER → 2017-04-20 | Outpatient (CLI) | payer MEDICARE, BC, OTHER | LOC: M RAD 11:26 | DX: R91.8 Other nonspecific abnormal finding of lung field (principal) | CPT/HCPCS: 71250 ==

== ENCOUNTER → 2017-05-03 | Outpatient (REF) | payer MEDICARE, BC, OTHER ==
[2017-05-03 19:23] LABS: FERRITIN 54 NG/ML (8-252); IRON (FE) 56 UG/DL (50-170); PERCENT SATURATION 17.3 % (13.2-45.0); TOTAL IRON BINDING CAPACITY 323 UG/DL (250-450)
== END ==
LOC: M LAB REF 18:26
DX: N18.3 Chronic kidney disease, stage 3 (moderate) (principal); D63.1 Anemia in chronic kidney disease
CPT/HCPCS: 83550

== ENCOUNTER → 2017-09-02 | Outpatient (REF) | payer MEDICARE, BC, OTHER ==
[2017-09-02 14:42] LABS: FERRITIN 32 NG/ML (8-252); IRON (FE) 40 UG/DL (50-170); PERCENT SATURATION 12.7 % (13.2-45.0); TOTAL IRON BINDING CAPACITY 314 UG/DL (250-450)
== END ==
LOC: M LAB REF 13:39
DX: N18.3 Chronic kidney disease, stage 3 (moderate) (principal); D63.1 Anemia in chronic kidney disease
CPT/HCPCS: 83550

== ENCOUNTER 2017-09-09 06:48 | Outpatient (CLI) | payer MEDICARE, BC, OTHER ==
[2017-09-09] MEDS ORDERED: IRON SUCROSE 475 MG in NS 250 ML IV (07:15)
[2017-09-09] MEDS: IRON SUCROSE 25 MG in NS 50 ML IV (07:46)
== END 2017-09-09 12:30 | disposition home or self-care (01) ==
LOC: M INFU 06:48
DX: D50.9 Iron deficiency anemia, unspecified (principal); Z87.448 Personal history of other diseases of urinary system; Z86.79 Personal history of other diseases of the circulatory system; Z91.013 Allergy to seafood; Z79.82 Long term (current) use of aspirin; Z79.899 Other long term (current) drug therapy
CPT/HCPCS: 96365

== ENCOUNTER → 2017-09-22 | Outpatient (REF) | payer MEDICARE, BC, OTHER ==
[2017-09-22 17:43] LABS: BASO # 0.1 10^3/uL (0.0-0.2); BASO % 0.5 % (0.0-1.0); EOS # 0.3 10^3/uL (0.0-0.50); EOS % 1.8 % (0.0-3.0); HEMATOCRIT 32.2 % (36.0-47.0); HEMOGLOBIN 10.4 g/dl (12.0-15.5); IMMATURE GRANULOCYTE % 0.6 % (0-3.0); LYMPH % 13.5 % (24.0-44.0); MEAN CORPUSCULAR HEMOGLOBIN 30.3 pg (27.0-33.0); MEAN CORPUSCULAR HGB CONC 32.3 g/dl (32.0-36.5); MEAN CORPUSCULAR VOLUME 93.9 fl (80.0-96.0); NEUTROPHILS # 11.3 10^3/uL (1.8-7.7); NEUTROPHILS % 76.6 % (36.0-66.0); PLATELET COUNT, AUTOMATED 232 10^3/uL (150-450); RED BLOOD COUNT 3.43 10^6/uL (4.00-5.40); RED CELL DISTRIBUTION WIDTH 14.6 % (11.5-14.5); WHITE BLOOD COUNT 14.8 10^3/uL (4.0-10.0)
[2017-09-22 18:07] LABS: ALBUMIN 3.5 GM/DL (3.2-5.2); ALKALINE PHOSPHATASE 141 U/L (45-117); ALT/SGPT 21 U/L (12-78); ANION GAP 9 MEQ/L (8-16); AST/SGOT 19 U/L (7-37); BILIRUBIN,TOTAL 0.3 MG/DL (0.2-1.0); BLOOD UREA NITROGEN 41 MG/DL (7-18); CALCIUM LEVEL 8.9 MG/DL (8.8-10.2); CARBON DIOXIDE LEVEL 25 MEQ/L (21-32); CHLORIDE LEVEL 105 MEQ/L (98-107); GLOMERULAR FILTRATION RATE 32.8 (>32); GLUCOSE, FASTING 91 MG/DL (70-100); POTASSIUM SERUM 4.3 MEQ/L (3.5-5.1); RHEUMATOID FACTOR QUANT < 10.0 IU/ML (<15.0); SODIUM LEVEL 139 MEQ/L (136-145); TOTAL PROTEIN 7.4 GM/DL (6.4-8.2)
[2017-09-22 18:14] LABS: ESTIMATED AVERAGE GLUCOSE 103 MG/DL (60-110); HEMOGLOBIN A1c 5.2 %
[2017-09-22 18:31] LABS: FOLATE > 24.0 NG/ML; VITAMIN B12 LEVEL 644 PG/ML
[2017-09-22 19:28] LABS: ERYTHROCYTE SEDIMENTATION RATE 52 mm/hr (0-30)
[2017-09-23 13:59] LABS: ALBUMIN 3.89 GM/DL (3.29-5.55); ALBUMIN % 52.6 % (55.8-66.1); ALPHA-1-GLOBULIN % 5.1 % (2.9-4.9); ALPHA-1-GLOBULINS 0.38 GM/DL (0.17-0.41); ALPHA-2-GLOBULINS 0.93 GM/DL (0.42-0.99); ALPHA-2-GLOBULINS % 12.6 % (7.1-11.8); BETA-1-GLOBULINS 0.53 GM/DL (0.28-0.60); BETA-1-GLOBULINS % 7.2 % (4.7-7.2); BETA-2-GLOBULINS 0.53 GM/DL (0.19-0.55); BETA-2-GLOBULINS % 7.2 % (3.2-6.5); GAMMA GLOBULIN % 15.3 % (11.1-18.8); GAMMA GLOBULINS 1.13 GM/DL (0.65-1.58)
[2017-09-28 11:13] LABS: PTT LUPUS TYPE ANTICOAG SCREEN 1.2 (0-1.2)
[2017-09-28 12:00] LABS: DRVV CONFIRM 42.5 SEC; LUPUS CONFIRM RATIO 1.1
[2017-09-28 12:02] LABS: NORMALIZED RATIO 1.09 (0.00-1.20)
[2017-10-04 14:14] LABS: ANTI DOUBLE STRAND-DNA AB <1 IU/mL (0-9); ANTINUCLEAR ANTIBODIES DIRECT Negative (Negative); CERULOPLASMIN 30.7 mg/dL (19.0-39.0); COPPER PLASMA 122 ug/dL (72-166); LEAD BLOOD ADULT 1 ug/dL (0-19); Lyme Disease IgG/IgM Antibodie <0.91 ISR (0.00-0.90); Lyme Disease IgM Ab Quantitati <0.80 index (0.00-0.79); MERCURY LEVEL None Detected ug/L (0.0-14.9); SJOGREN'S ANTI SS-A <0.2 AI (0.0-0.9); SJOGREN'S ANTI SS-B <0.2 AI (0.0-0.9); VITAMIN B1 LEVEL WHOLE BLOOD 174.4 nmol/L (66.5-200.0); VITAMIN B6,PYRIDOXAL PHOSPHATE 22.7 ug/L (2.0-32.8)
== END ==
LOC: M LABNEURO 11:11
DX: G62.9 Polyneuropathy, unspecified (principal)
CPT/HCPCS: 82525

== ENCOUNTER → 2018-02-24 | Outpatient (REF) | payer MEDICARE, OTHER ==
[2018-02-24 13:46] LABS: FERRITIN 77 NG/ML (8-252); IRON (FE) 53 UG/DL (50-170); PERCENT SATURATION 17.4 % (13.2-45.0); TOTAL IRON BINDING CAPACITY 304 UG/DL (250-450)
== END ==
LOC: M LAB REF 13:10
DX: N39.0 Urinary tract infection, site not specified (principal); N18.3 Chronic kidney disease, stage 3 (moderate); D63.1 Anemia in chronic kidney disease
CPT/HCPCS: 83550

== ENCOUNTER → 2018-03-30 | Outpatient (CLI) | payer MEDICARE, BC, OTHER ==
[~2018-03-30] MED LIST changes: +ACET1TAB55 PO; -AMLO5TAB2 PO; +AMLO5TAB6 PO; +BREO1INH3 INH; +CHLO25TA PO; +CLAR10CA3 PO; +DOXA1TAB40 PO; +FERR32TA PO; +INCR1INH INH; +LEVO250T12 PO; +LOSA100T50 PO; +MAGN1TAB25 PO; +MULT1CHW39 PO; +PROAAER10 INH; +SPIR-10 PO
[2018-03-30 14:19] LABS: ALBUMIN 3.4 GM/DL (3.2-5.2); CALCIUM LEVEL 8.8 MG/DL (8.8-10.2); CREATININE FOR GFR 1.99 MG/DL (0.55-1.30); GLOMERULAR FILTRATION RATE 25.5 (>32); PHOSPHORUS LEVEL 3.9 MG/DL (2.5-4.9); POTASSIUM SERUM 4.2 MEQ/L (3.5-5.1)
== END ==
LOC: M SMT 12:08
PROVIDERS: ATTEND Internal Medicine Cardiovascular Disease
DX: I50.32 Chronic diastolic (congestive) heart failure (principal)

== ENCOUNTER 2018-09-23 03:19 | Inpatient (IN) | payer MEDICARE, BC, OTHER ==
[~2018-09-23] VITALS: Ht 152.4 cm; Wt 52.5 kg
[~2018-09-23 03:19] MED LIST changes: -ASPI1TAB PO; +ASPI81TA26 PO; -MAGN1TAB25 PO; +MAGN1TAB26 PO; -MULT1CHW39 PO; +MULT200T7 PO; +SERT-141 PO; -SERT50TA PO
[2018-09-23] MEDS ORDERED: ZOLO100T (03:34)
[2018-09-23] MEDS ORDERED: POTA20TA6 (03:34)
[2018-09-23] MEDS ORDERED: DOXA1TAB67 (03:34)
[2018-09-23] MEDS ORDERED: SERT-155 (03:34)
[2018-09-23] MEDS ORDERED: CARD1TAB4 (03:34)
[2018-09-23] MEDS ORDERED: CHLO125TA (03:34)
[2018-09-23] MEDS ORDERED: SPIR-10 (03:34)
[2018-09-23] MEDS ORDERED: GABA-1171 (03:34)
[2018-09-23] MEDS ORDERED: TORS20TA2 (03:34)
[2018-09-23] MEDS ORDERED: LEVO175T2 (03:34)
[2018-09-23] MEDS ORDERED: SUCR1TAB56 (03:34)
[2018-09-23] MEDS ORDERED: OMEP-221 (03:34)
[2018-09-23] MEDS ORDERED: LOSA25TA14 (03:34)
[2018-09-23] MEDS ORDERED: AMLO1TAB32 (03:34)
[2018-09-23] MEDS ORDERED: LORA-674 (03:34)
[2018-09-23] MEDS ORDERED: ATOR1TAB19 (03:34)
[2018-09-23] MEDS ORDERED: LOSA50TA88 (03:34)
[2018-09-23] MEDS ORDERED: TORS10TA3 (03:34)
[2018-09-23] MEDS ORDERED: CARV3.12 (03:34)
[2018-09-23] MEDS ORDERED: CENTCHW3 (03:34)
[2018-09-23] MEDS ORDERED: NS 500 ML IV ONE (03:45)
[2018-09-23 03:51] LABS: BASO # 0.1 10^3/uL (0.0-0.2); BASO % 0.4 % (0.0-1.0); EOS # 0.3 10^3/uL (0.0-0.50); EOS % 2.6 % (0.0-3.0); HEMATOCRIT 22.9 % (36.0-47.0); HEMOGLOBIN 7.1 g/dl (12.0-15.5); LYMPH # 1.6 10^3/uL (1.5-4.5); LYMPH % 11.9 % (24.0-44.0); MEAN CORPUSCULAR HEMOGLOBIN 28.2 pg (27.0-33.0); MEAN CORPUSCULAR VOLUME 90.9 fl (80.0-96.0); MONO # 1.2 10^3/uL (0.0-0.8); MONO % 8.7 % (0.0-5.0); NEUTROPHILS # 10.1 10^3/uL (1.8-7.7); NEUTROPHILS % 75.6 % (36.0-66.0); PLATELET COUNT, AUTOMATED 262 10^3/uL (150-450); RED BLOOD COUNT 2.52 10^6/uL (4.00-5.40); WHITE BLOOD COUNT 13.3 10^3/uL (4.0-10.0)
[2018-09-23 04:02] LABS: INR 1.22; PROTHROMBIN TIME 15.1 SECONDS (11.8-14.0)
[2018-09-23 04:03] LABS: PARTIAL THROMBOPLASTIN TIME 35.7 SECONDS (25.0-38.4)
[2018-09-23 04:16] LABS: ALBUMIN 2.3 GM/DL (3.2-5.2); ALT/SGPT 23 U/L (12-78); AMYLASE 87 U/L (25-115); BILIRUBIN,DIRECT 0.1 MG/DL (0.0-0.2); BILIRUBIN,TOTAL 0.2 MG/DL (0.2-1.0); BLOOD UREA NITROGEN 48 MG/DL (7-18); CALCIUM LEVEL 7.6 MG/DL (8.8-10.2); CARBON DIOXIDE LEVEL 27 MEQ/L (21-32); CHLORIDE LEVEL 106 MEQ/L (98-107); CK-MB VALUE MASS 2.3 NG/ML (<3.6); CPK CREATINE PHOSPHOKINASE 45 U/L (26-192); CREATININE FOR GFR 1.83 MG/DL (0.55-1.30); GLUCOSE, FASTING 100 MG/DL (70-100); LIPASE 130 U/L (73-393); MB/CK RELATIVE INDEX 5.11 (< OR =4); SODIUM LEVEL 140 MEQ/L (136-145); TOTAL PROTEIN 6.2 GM/DL (6.4-8.2); TROPONIN I 0.12 NG/ML (< 0.10)
[2018-09-23 04:17] LABS: ETHYL ALCOHOL (ETHANOL) < 0.003 % (0.000-0.010)
[2018-09-23 05:44] LABS: AMPHETAMINES LEVEL URINE NEGATIVE (NEGATIVE); BARBITURATES URINE NEGATIVE (NEGATIVE); BENZODIAZEPINES URINE NEGATIVE (NEGATIVE); CANNABINOIDS URINE NEGATIVE (NEGATIVE); COCAINE METABOLITE URINE NEGATIVE (NEGATIVE); METHADONE URINE NEGATIVE (NEGATIVE); OPIATES URINE NEGATIVE (NEGATIVE); PHENCYCLIDINE URINE NEGATIVE (NEGATIVE)
--- NOTE | 2018-09-23 05:45 | REPVR ---
EXAM: CT Head Without Contrast EXAM DATE/TIME: 09/23/2018 3:32 AM CLINICAL HISTORY: 83 years old, female; Injury or trauma; Fall; Initial encounter; Concussion / head injury TECHNIQUE: Imaging protocol: Axial computed tomography images of the head without contrast. Radiation optimization: All CT scans at this facility use at least one of these dose optimization techniques: automated exposure control; mA and/or kV adjustment per patient size (includes targeted exams where dose is matched to clinical indication); or iterative reconstruction. COMPARISON: No relevant prior studies available. FINDINGS: Brain: There is no acute intracranial abnormality. Mild prominence of ventricles and sulci representing volume loss. Mild small vessel ischemic changes are seen. There is no mass, midline shift, or mass effect. Low attenuation area in the left occipital lobe extending into the left parietal lobe representing old infarct. There is no evidence of hemorrhage. There is no extra-axial fluid collection. Basal cisterns are patent. Ventricles: See Brain Finding. Bones/joints: The visualized osseous structures are unremarkable. Sinuses: Visualized sinuses are clear. Mild mucosal thickening of visualized sinuses. Mastoid air cells: Fluid in right mastoid air cells. Auditory system: Fluid in right middle ear cavity and internal auditory canal. Soft tissues: Moderate right parietal soft tissue swelling. IMPRESSION: 1. Mild volume loss and small vessel ischemic changes. . 2. No acute intracranial abnormality. Other findings as described above. Electronically signed by: Azul Garcia On 09/23/2018 05:45:14 AM
--- NOTE | 2018-09-23 05:49 | REPVR ---
EXAM: CT Cervical Spine Without Contrast EXAM DATE/TIME: 09/23/2018 3:32 AM CLINICAL HISTORY: 83 years old, female; Injury or trauma; Fall; Initial encounter; Concussion /head injury TECHNIQUE: Imaging protocol: Axial computed tomography images of the cervical spine without contrast. Coronal and sagittal reformatted images were created and reviewed. Radiation optimization: All CT scans at this facility use at least one of these dose optimization techniques: automated exposure control; mA and/or kV adjustment per patient size (includes targeted exams where dose is matched to clinical indication); or iterative reconstruction. COMPARISON: No relevant prior studies available. FINDINGS: Vertebrae: No acute fracture. Diffuse demineralization of the bones. Mild grade 1 anterolisthesis of C3 on C4 and C4 on C5. Loss of disc space at C5/C6. Mild anterior osteophyte formation and facet joint arthropathy. Discs/Spinal canal/Neural foramina: Mild posterior disc bulges causing mild indentation on thecal sac. Soft tissues: Unremarkable. Lungs: Lung apices are normal. IMPRESSION: No acute findings. Electronically signed by: Azul Garcia On 09/23/2018 05:48:50 AM
[2018-09-23] MEDS ORDERED: GABA-1171 PO (06:40)
[2018-09-23] MEDS ORDERED: LOSA50TA88 PO (06:44)
[2018-09-23] MEDS ORDERED: OMEP-221 PO (06:49)
[2018-09-23] MEDS ORDERED: SUCR1TA PO (06:49)
[2018-09-23] MEDS ORDERED: TORS20TA2 PO (06:49)
[2018-09-23] MEDS ORDERED: LORA-622 PO (06:49)
[2018-09-23] MEDS ORDERED: LEVO175T2 PO (07:43)
[2018-09-23] MEDS ORDERED: BREO1INH3 INH (07:43)
[2018-09-23] MEDS ORDERED: CHLO25TA PO (08:07)
[2018-09-23] MEDS ORDERED: CALCD50TA PO (08:07)
[2018-09-23] MEDS ORDERED: ASPI325T43 PO (08:09)
[2018-09-23] MEDS ORDERED: LEVO75TA4 PO (08:11)
--- NOTE | 2018-09-23 08:56 | REP ---
Portable chest x-ray: Single view. History: Trauma. Findings: Oxygen delivery tubing and EKG monitoring electrodes are seen overlying the chest. The aorta is calcific and somewhat tortuous. Heart is mildly prominent. There is a loop recorder visible over the left heart border. No focal infiltrate is seen. The lungs are exposed at a lesser level of inspiration. Impression: No focal infiltrate. No pneumothorax or hydrothorax seen. Electronically Signed by Ash Rock MD 09/23/2018 12:25 P
--- NOTE | 2018-09-23 11:07 | REP ---
PELVIS BILATERAL HIP STUDY: Five views. HISTORY: Persistent pain and spasm after a fall. FINDINGS: AP view of the pelvis shows an intact bony pelvic ring. No hip or other fracture is appreciated. Vascular calcification is noted. There are surgical clips in the right inguinal soft tissues. The femoral heads are smooth and rounded and hip joint spaces are preserved bilaterally. IMPRESSION: Negative pelvis bilateral hip study. Electronically Signed by Ash Rock MD 09/23/2018 12:36 P
[2018-09-23 14:00] VITALS: BP 142/58
[2018-09-23] MEDS ORDERED: MORPHINE 4 MG/ML 1ML VIAL/SYRINGE (J2270) IV PRN (19:45)
[2018-09-23] MEDS ORDERED: NS 1,000 ML IV SCH (19:45)
--- NOTE | 2018-09-23 19:58 | HPEPDOC ---
General Date of Admission Sep 23, 2018 at 09:53 Date of Service: Sep 23, 2018 Chief Complaint The patient is a 83-year-old female admitted with a reason for visit of Closed Head Injury. Source: Family Exam Limitations: Other (encephalopathy) Timing/Duration: 4-6 hours Severity: Moderate Associated Symptoms: Mechanical fall History of Present Illness This is an 83-year-old female who was noted to have a fall at about 2:00 AM. She did hit her head, resulting in a contusion and bleeding. She usually ambulates by walker and cane and apparently had been using her walker. She was then b rought to the emergency room. She has had significant somnolence since the event. Concern is raised for concussion. Home Medications Scheduled Amlodipine Besylate (Amlodipine Besylate) 5 Mg Tab, 5 MG PO BID, (Reported) Aspirin (Aspirin EC) 325 Mg Tablet.dr, 325 MG PO DAILY, (Reported) Atorvastatin Calcium (Atorvastatin Calcium) 40 Mg Tab, 40 MG PO QHS, (Reported) Calcium/Vitamin D (Calcium 500-Vit D3 200 Tablet) 1 Each Tablet, 1 TAB PO DAILY, (Reported) Carvedilol (Carvedilol) 12.5 Mg Tab, 12.5 MG PO BID, (Reported) Chlorthalidone (Chlorthalidone) 25 Mg Tablet, 25 MG PO DAILY, (Reported) Doxazosin Mesylate (Doxazosin Mesylate) 4 Mg Tab, 2 MG PO BID, (Reported) Ferrous Gluconate (Ferrous Gluconate) 324 Mg Tab, 324 MG PO DAILY, (Reported) Fluticasone/Vilanterol (Breo Ellipta 200-25 Mcg INH) 1 Each Blst.w.dev, 1 PUFF INH DAILY, (Reported) Gabapentin (Gabapentin) 100 Mg Capsule, 300 MG PO QHS, (Reported) Levothyroxine Sodium (Levothyroxine Sodium) 75 Mcg Tablet, 75 MCG PO DAILY, (Reported) Loratadine (Loratadine) 10 Mg Tablet, 10 MG PO DAILY, (Reported) Losartan Potassium (Losartan Potassium) 50 Mg Tablet, 25 MG PO BID, (Reported) Magnesium Oxide (Magnesium Oxide) 400 Mg Tab, 400 MG PO DAILY, (Reported) Multivit-Minerals/Folic Acid (Adult Multivitamin Gummies) 1 Chw Chw, 1 CHW PO DAILY, (Reported) Omeprazole (Omeprazole) 40 Mg Capsule.dr 40 MG PO DAILY, (Reported) Sertraline Hcl (Sertraline HCl) 50 Mg Tab, 50 MG PO DAILY, (Reported) Sucralfate (Sucralfate) 1 Gm Tablet, 1 GM PO ACHS, (Reported) Torsemide (Torsemide) 20 Mg Tablet, 20 MG PO DAILY, (Reported) Umeclidinium [place] (Incruse Ellipta) 62.5 Mcg/Inh Inh, 1 PUFF INH DAILY, (Reported) Scheduled PRN Albuterol Sulfate (Proair Hfa) 108 Mcg/Act Aer, 2 PUFF INH QID PRN for SHORTNESS OF BREATH, (Reported) Allergies Coded Allergies: shellfish derived (Verified Allergy, Unknown, 09/23/18) Past Medical History Medical History Past medical history is remarkable for hypothyroidism, chronic diastolic congestive heart failure, obstructive sleep apnea, which she is on O2 at night, chronic kidney disease stage III, pulmonary hypertension, coronary artery disease, patient has history of a prior stroke, [place]'s cyst to her right leg Surgical History Surgical history includes placement of a renal stent, bifemoral bypass, unspecified, retinal surgery, cholecystectomy, hysterectomy, implantation of a loop recorder 1 year ago. Family History Significant Family History: Cancer, Diabetes, Hypertension, Lung disease Social History * Smoker: former Smoker (the patient's tobacco use, has been remote for 30 years) Alcohol: Denies Drugs: denies Psychosocial History: No pertinent psych hx A-FIB/CHADSVASC A-FIB History Current/History of A-Fib/PAF?: No Current PO Anticoag Therapy: No Review of Systems Other systems 10 systems review is negative except as stated in the brief presentation. Physical Examination General Exam: Positive: Other (is somnolent, intermittently and appears older than her stated age) Eye Exam: Positive: Conjunctiva & lids normal ENT Exam: Positive: Nares Patent, Other ENT (patient has contusion with old blood and orly to the back of her head) Neck Exam: Positive: Supple (to passive motion) Chest Exam: Positive: Clear to auscultation, Normal air movement Heart Exam: Positive: Rate Normal, Regular Rhythm, Normal S1, Normal S2; Negative: Murmurs, Rubs Abdomen Exam: Positive: Normal bowel sounds, Soft; Negative: Tenderness, Hepatospenomegaly Extremity Exam: Positive: Other (patient complains of pain to the region of her right thigh and hip. I do not appreciate any bruising or joint displacement) Skin Exam: Positive: Nl turgor and temperature Psych Exam: Positive: Other (patient is somnolent of diminished respon siveness.) Vital Signs Vital Signs Date Time Temp Pulse Resp B/P (MAP) Pulse Ox O2 Delivery O2 Flow Rate FiO2 09/23/18 14:00 98.8 64 20 142/58 (86) 94 2.0 09/23/18 12:46 Nasal Cannula Laboratory Data Labs 24H Laboratory Tests 2 09/23/18 03:34: Immature Granulocyte % (Auto) 0.8, White Blood Count 13.3H, Red Blood Count 2.52L, Hemoglobin 7.1L, Hematocrit 22.9L, Mean Corpuscular Volume 90.9, Mean Corpuscular Hemoglobin 28.2, Mean Corpuscular Hemoglobin Concent 31.0L, Red Cell Distribution Width 15.3H, Platelet Count 262, Neutrophils (%) (Auto) 75.6H, Lymphocytes (%) (Auto) 11.9L, Monocytes (%) (Auto) 8.7H, Eosinophils (%) (Auto) 2.6, Basophils (%) (Auto) 0.4, Neutrophils # (Auto) 10.1H, Lymphocytes # (Auto) 1.6, Monocytes # (Auto) 1.2H, Eosinophils # (Auto) 0.3, Basophils # (Auto) 0.1, Nucleated Red Blood Cells % (auto) 0.0, Prothrombin Time 15.1H, Prothromb Time International Ratio 1.22, Activated Partial Thromboplast Time 35.7, POC Glucose (Misc Panel) 102, POC Sodium (Misc Panel) 139, POC Potassium (Misc Panel) 3.9, POC Chloride (Misc Panel) 101, POC Total CO2 (Misc Panel) 25.0, POC Blood Urea Nitrogen (Misc Panel 45H, POC Ionized Calcium (Misc Panel) 4.6, POC Creatinine (Misc Panel) 1.9H, POC Hematocrit (Misc Panel) 21.0L, Anion Gap 7L, Glomerular Filtration Rate 28.0L, Lactic Acid Level 0.8, Calcium Level 7.6L, Aspartate Amino Transf (AST/SGOT) 21, Alanine Aminotransferase (ALT/SGPT) 23, Alkaline Phosphatase 101, Total Bilirubin 0.2, Direct Bilirubin 0.1, Total Creatine Kinase 45, Creatine Kinase MB 2.3, Creatine Kinase MB Relative Index 5.11H, Troponin I 0.12H, Total Protein 6.2L, Albumin 2.3L, Albumin/Globulin Ratio 0.59L, Amylase Level 87, Lipase 130, Ethyl Alcohol Level < 0.003 09/23/18 03:56: POC Total CO2 (Misc Panel) 25.0, POC pH (Misc Panel) 7.374, POC Base Excess (Misc Panel) -1.0, POC Saturated Percent O2 (Misc) 90L, POC pO2 (Misc Panel) 61.0L, POC pCO2 (Misc Panel) 41.0, POC HCO3 (Misc Panel) 23.9 09/23/18 05:11: Urine Color STRAW, Urine Appearance CLEAR, Urine pH 7.0, Urine Specific [place] 1.005, Urine Protein NEGATIVE, Urine Glucose (UA) NEGATIVE, Urine Ketones NEGATIVE, Urine Blood NEGATIVE, Urine Nitrite NEGATIVE, Urine Bilirubin NEGATIVE, Urine Urobilinogen 0.2, Urine Leukocyte Esterase NEGATIVE, Urine WBC (Auto) 1, Urine RBC (Auto) 1, Urine Hyaline Casts (Auto) 0, Urine Bacteria (A uto) NEGATIVE, Urine Squamous Epithelial Cells 0, Urine Sperm (Auto) , Urine Amphetamines Screen NEGATIVE, Urine Benzodiazepines Screen NEGATIVE, Urine Opiates Screen NEGATIVE, Urine Methadone Screen NEGATIVE, Urine Barbiturates Screen NEGATIVE, Urine Phencyclidine Screen NEGATIVE, Urine Cocaine Metabolite Screen NEGATIVE, Urine Cannabinoids Screen NEGATIVE CBC/BMP Laboratory Tests 09/23/18 03:34 Red Blood Count 2.52 L, Mean Corpuscular Volume 90.9, Mean Corpuscular Hemoglo bin 28.2, Mean Corpuscular Hemoglobin Concent 31.0 L, Red Cell Distribution Width 15.3 H, Neutrophils (%) (Auto) 75.6 H, Lymphocytes (%) (Auto) 11.9 L, Monocytes (%) (Auto) 8.7 H, Eosinophils (%) (Auto) 2.6, Basophils (%) (Auto) 0.4, Neutrophils # (Auto) 10.1 H, Lymphocytes # (Auto) 1.6, Monocytes # (Auto) 1.2 H, Eosinophils # (Auto) 0.3, Basophils # (Auto) 0.1 Assessment/Plan Closed head injury--CT scan does not show any other sign of acute injury or fracture. Patient is intermittently awake and looking around and then abruptly somnolent and snoring. Concussion it is not unlikely. We will continue to monitor her with neuro checks over the next 12-24 hours. We will have her assessed by physical, occupational and speech therapy services before feeding her or mobilizing her. With waxing and waning consciousness we need to always think of possible head bleed and so we'll repeat a head CT in the morning. Right hip/thigh pain--the patient did fall apparently onto her right side. She complains of pain whenever her right leg is moved. We will obtain imaging to determine whether she has sustained a hip or pelvic fracture. The patient's home medications are held due to risk of aspiration with decreased responsiveness. We will hydrate her with IV fluids and DVT prophylaxis will be with serial compression devices. Plan / VTE VTE Prophylaxis Ordered?: Yes Plan IVF: Initiate Diet: Make NPO Therapy: PT, OT, Speech Anticipated Discharge: Half-Way Advanced Directives: MOLST Form is available, Do Not Resuscitate (DNR), Do Not Intubate (DNI), Health Care Proxy (HCP) (the patient's daughter is her healthc are proxy) ROMEL CHENEY MD Sep 23, 2018 19:58
--- NOTE | 2018-09-23 20:24 | ECGEPIP ---
[facility] - ED Test Date: 2018-09-23 Pat Name: MODESTO BARRIOS Department: Room: - Gender: Female Outpatient Phlebotomist: : [id number] Requested By: FINESSE Martinez Order Number: [id number] Reading MD: Leanne Luna Measurements Intervals [place] Rate: 55 P: 39 WI: 175 QRS: QRSD: 147 T: 78 QT: 514 QTc: 493 Interpretive Statements SINUS BRADYCARDIA LEFT BUNDLE BRANCH BLOCK BASELINE ARTIFACT MAY AFFECT READING CW 09/16/16 RATE DECREASED NEW LBBB Electronically Signed on 09-23-2018 20:24:22 EDT by Leanne Luna
[2018-09-23 22:00] VITALS: BP 143/60
[2018-09-24] VITALS (9 sets, daily range): BP systolic 147–190; BP diastolic 50–75
--- NOTE | 2018-09-24 06:56 | CR ---
DATE OF CONSULTATION: 09/23/2018 REASON FOR CONSULTATION: Severe anemia, renal insufficiency in this lady with complicated medical problems. HISTORY OF PRESENT ILLNESS: Mrs. Pedraza is an 83-year-old female who is followed in our office for her chronic kidney disease. She has known history of longstanding hypertension, stage III of chronic kidney disease with recurrent acute renal failure, history of atrophic right kidney, status post renal angioplasty with stent placement, status post right axillobifemoral bypass, history of mild to moderate anemia with baseline hemoglobin about 10-11 grams back in July at the time of last visit. She presented to the emergency room this morning due to a fall at home where she developed a laceration to her scalp. She is admitted for a closed head injury and a renal consultation was requested. Hemoglobin is 7.1 today and hematocrit 23. BUN is 48 and creatinine 1.83. Her most recent creatinine in the office was above 2 however, prior to that it had been in the range of 1.5 mg/dl. She does have history of recurrent acute renal failure. PAST MEDICAL AND SURGICAL HISTORY: Significant for 1. History of chronic obstructive pulmonary disease (COPD). 2. Hypertension with hypertensive heart disease. 3. Hypothyroidism. 4. Hyperlipidemia. 5. Chronic kidney disease with atrophic right kidney. 6. Coronary artery disease. 7. Peripheral vascular disease including carotid, renal, status post renal angioplasty and stent on the right side and peripheral atherosclerosis, status post axillobifemoral bypass graft. 8. History of stroke. 9. History of granulomatous disease. PAST SURGICAL HISTORY: Significant for: Cholecystectomy. Total hysterectomy. Thyroidectomy. Bilateral cataract removal. Renal angioplasty and stent on the right side. History of cardiac catheterization. Colonoscopy. Axillobifemoral bypass. FAMILY HISTORY: Significant for coronary artery disease, asthma, diabetes, hypertension and brain tumor. Her father is due to heart disease and mother due to brain tumor. PERSONAL AND SOCIAL HISTORY: The patient is a former smoker and denies any alcohol or drug use. REVIEW OF SYSTEMS: The patient fell at home while trying to go to the bathroom at about 2:00 a.m. She has a laceration on her scalp. She is currently resting in the emergency room and is minimally communicative. Her son is present in the room who provided information. There is no history of fever or chills. Ears, nose and throat are unremarkable. Cardiovascular system negative for any chest pain or leg edema. Respiratory system negative for cough or hemoptysis. Gastrointestinal (GI) system negative for vomiting or diarrhea. She has decreased oral intake today. Genitourinary () system is negative for dysuria or hematuria. She has known history of atrophic right kidney and chronic kidney disease. Endocrine system is significant for type 2 diabetes. Hematological system is significant for blood loss anemia. She had significant blood loss at home following her injury as per her son. Musculoskeletal system is negative for any significant leg edema or arthritis. Neurological system is significant for a fall at home with some loss of consciousness. She is arousable now however, falls asleep quickly. She was not able to provide any information by herself. PHYSICAL EXAMINATION: Elderly female lying in the stretcher with temperature 98.8 degrees Fahrenheit, heart rate 64 per minute and respiratory rate 20 per minute. Blood pressure 142/58 mmHg and oxygen saturation 94% on 2 liters oxygen. She has a small laceration on the right occipital area. Minimal blood is noted on the pillow. Pupils are equal and reactive to light. Her sclera is anicteric. Nose and throat are unremarkable. Neck is supple and without jugular venous distention (JVD) or thyroid enlargement. Heart sounds are regular and lungs clear to auscultation with poor inspiratory effort. Abdomen soft and nontender and bowel sounds are normal. Extremities have no cyanosis or clubbing. Neurologically, she is arousable but falls asleep quickly. She did not answer any questions. LABORATORY DATA: Sodium 140, potassium 4.0, CO2 27, BUN 48 and creatinine 1.83. Glucose 100 and lactic acid 0.8. Calcium level 7.6, AST 21, ALT 23, total protein 6.2 and albumin 2.3. Amylase 87 and lipase 130. WBC count is 13.3, hemoglobin 7.1 and hematocrit 22.9. Platelets 262. Urine is negative for blood or protein. There is only 1 WBC, 1 RBC. Toxicology screen is negative. INR 1.22. CT scan of head was negative for any acute intracranial bleed or infarct. Cervical spine CT scan was also negative for any acute problems. Chest x-ray unremarkable for any acute infiltrate or effusion. PROBLEMS: 1. Acute renal failure superimposed on chronic kidney disease. The patient has history of recurrent acute renal failure; however, at this point her kidney function seems to be relatively better. She does have atrophic right kidney with prior history of right renal angioplasty and stent placement. I would suggest to hydrate her with 50 mL normal saline per hour and keep her diuretics on hold. 2. Acute blood loss anemia. The patient had laceration and loss of blood at home. Her baseline hemoglobin was about 10 grams in July this year and not is down to 7.1. I would recommend to transfuse at least 2 units of packed RBCs. 3. Hypertension. Her blood pressure seems reasonably well-controlled at present, however, she is likely to have increased blood pressure once her condition improves. Home antihypertensive meds can then be gradually resumed. She was taking amlodipine 5 mg daily at home in addition to carvedilol 12.5 mg b.i.d. and chlorthalidone 25 mg daily. 4. Syncope and closed head trauma. The patient seems to be arousable but falls asleep quickly. She does not seem to have any significant neurological loss, but needs to be closely monitored. HOME MEDICATIONS: Her home medications include: - ProAir inhaler 2 puffs q.i.d. - amlodipine 5 mg daily - aspirin 325 mg daily - atorvastatin 40 mg daily - calcium with vitamin D 1 tablet daily - carvedilol 12.5 mg b.i.d. - chlorthalidone 25 mg daily - doxazosin 4 mg half a tablet b.i.d. - ferrous gluconate 324 mg daily - Breo Ellipta inhaler once a day - gabapentin 100 mg 3 tablets at bedtime - levothyroxine 75 mcg daily - magnesium oxide 400 mg daily - multivitamin one tablet daily - omeprazole 40 mg daily - sertraline 50 mg daily - Carafate 1 gram four times a day - torsemide 20 mg daily ALLERGIES: She has allergy to shellfish. Thank you for involving us in the care of Mrs. Pedraza. We will follow her along with you.
[2018-09-24 07:18] LABS: HEMATOCRIT 22.8 % (36.0-47.0); HEMOGLOBIN 7.1 g/dl (12.0-15.5); MEAN CORPUSCULAR HEMOGLOBIN 27.2 pg (27.0-33.0); MEAN CORPUSCULAR HGB CONC 31.1 g/dl (32.0-36.5); MEAN CORPUSCULAR VOLUME 87.4 fl (80.0-96.0); PLATELET COUNT, AUTOMATED 274 10^3/uL (150-450); RED BLOOD COUNT 2.61 10^6/uL (4.00-5.40); WHITE BLOOD COUNT 13.3 10^3/uL (4.0-10.0)
[2018-09-24 07:41] LABS: CALCIUM LEVEL 8.1 MG/DL (8.8-10.2); CREATININE FOR GFR 1.14 MG/DL (0.55-1.30); GLOMERULAR FILTRATION RATE 48.3 (>32); POTASSIUM SERUM 3.4 MEQ/L (3.5-5.1)
[2018-09-24] MEDS: NS 1,000 ML IV SCH (09:05)
--- NOTE | 2018-09-24 10:19 | REP ---
CT brain without contrast: Comparison CT study September 23, 2018. CT findings: There is a low-density in the left middle cerebral artery territory distribution affecting the left parietal lobe consistent with acute infarction. This represents a change from September 23, 2018 study. There is an old area of encephalomalacia in the left occipital lobe. There is no evidence of intracranial hemorrhage. There is a old lacunar infarct in the left basal ganglia. Diffuse cerebral atrophy is noted. Vascular calcifications again seen. No calvarial lesion is seen. Impression: Findings consistent with acute / subacute left middle cerebral artery territory infarct. No hemorrhage seen. Old left occipital lobe cortical infarct. Old lacunar infarct left basal ganglia. Electronically Signed by Ash Rock MD 09/24/2018 10:10 A
[2018-09-24] MEDS ORDERED: hydrALAZINE INJ 20 MG/ML VIAL IV PRN (14:15)
[2018-09-24] MEDS: LORazepam 2 MG/ML VIAL (J2060) IV PRN (16:08)
--- NOTE | 2018-09-24 16:22 | IPNPDOC ---
Text Note Date of Service The patient was seen on 09/24/18. NOTE This is an 83-year-old female who sustained a closed head injury. She continues to have episodes of wakefulness and sleepiness. Her episodes of wakefulness are lasting for longer intervals but she still is not fully alert or oriented. Physical exam Vital signs: Please see below HEENT: Patient does have a contusion to the back of her head with orly, there is no active bleeding, the site is tender, she has complained of headache. Cardiovascular: Regular rate and rhythm with a normal S1, S2 and about a grade 2/6 systolic murmur. Respiratory: Clear to auscultation with good air movement. Abdomen: Soft, nontender, nondistended, bowel tones are present. Extremities: No peripheral edema or lesions, pedal pulses are palpable, lower extremities are mobile to hip and knees. Neuro: The patient does have waxing and waning wakefulness, when awake she can follow simple commands and recognizes her daughter, she does not otherwise demonstrate a focal neuro deficit Skin: Patient does have ecchymoses to her arms, likely from medication, there are no acute skin tears ASSESSMENT/PLAN: 1. Closed head injury--CT scan does not show any other sign of acute infarct, injury or fracture. Patient is intermittently awake and looking around and then abruptly somnolent and snoring. Concussion is not unlikely. We will continue to monitor her with neuro checks over the next 12-24 hours. We will have her assessed by physical, occupational and speech therapy services before feeding her or mobilizing her. With waxing and waning consciousness we need to always think of possible head bleed; repeat CT scan of the head this morning is negative for this. 2. Right hip/thigh pain--the patient did fall apparently onto her right side. She complained of pain whenever her right leg was moved. Hip and pelvic x-rays ruled out fracture or dislocation. Patient does not currently complain of pain at all and is able to move her legs freely. 3. The patient's home medications are held due to risk of aspiration with decreased responsiveness. Daughter has noted that patient chokes on occasion even with sucking on mouth swabs. We will hydrate her with IV fluids and DVT prophylaxis will be with serial compression devices. The patient has hypertension; will make use of IV medications until she is able to take orals. We could also consider the use of a clonidine patch. VS,Fishbone, I+O VS, Fishbone, I+O Laboratory Tests 09/24/18 07:01 Red Blood Count 2.61 L, Mean Corpuscular Volume 87.4, Mean Corpuscular Hemoglobin 27.2, Mean Corpuscular Hemoglobin Concent 31.1 L, Red Cell Distribution Width 15.5 H, Calcium Level 8.1 L Vital Signs Date Time Temp Pulse Resp B/P (MAP) Pulse Ox O2 Delivery O2 Flow Rate FiO2 09/24/18 15:30 168/52 (90) 09/24/18 12:45 98.5 62 18 92 2.0 09/23/18 12:46 Nasal Cannula I&O- Last 24 Hours up to 6 AM 09/24/18 05:59 Intake Total 875 ml Output Total 1600 ml Balance -725 ml ROMEL CHENEY MD Sep 24, 2018 16:22
--- NOTE | 2018-09-24 20:34 | IPNPDOC ---
Text Note Date of Service The patient was seen on 09/24/18. NOTE Called to the patient's bedside by RN due to concerns of right sided weakness and aphasia. Upon my arrival to the bedside, the patient's right-sided weakness had resolved, and she was following commands. However, the patient was unable to answer my questions and repeatedly answered, "yes I am." CT scan of the head reviewed from this morning reveals findings consistent with acute/subacute left middle cerebral artery infarct which is consistent with her symptoms at this time. I do see that the patient has a history of stroke and peripheral artery disease. She already takes 325 mg aspirin daily. However given the patient's compromised swallowing ability, we will continue this per rectum for now. The patient would benefit from a neurological consultation in the a.m. to ascertain antiplatelet regimen moving forward. We will cont to allow permissive hypertension at this time and serially monitor the patient's neurological status. VS,Fishbone, I+O VS, Fishbone, I+O Laboratory Tests 09/24/18 07:01 Red Blood Count 2.61 L, Mean Corpuscular Volume 87.4, Mean Corpuscular Hemoglobin 27.2, Mean Corpuscular Hemoglobin Concent 31.1 L, Red Cell Distribution Width 15.5 H, Calcium Level 8.1 L Vital Signs Date Time Temp Pulse Resp B/P (MAP) Pulse Ox O2 Delivery O2 Flow Rate FiO2 09/24/18 18:24 180/54 (96) 09/24/18 16:00 2.0 09/24/18 12:45 98.5 62 18 92 09/23/18 12:46 Nasal Cannula I&O- Last 24 Hours up to 6 AM 09/24/18 06:00 Intake Total 1250 ml Output Total 1775 ml Balance -525 ml DARLINE GRAYSON MD Sep 24, 2018 20:34
[2018-09-24 20:42] LABS: HEMATOCRIT 27.9 % (36.0-47.0); HEMOGLOBIN 8.9 g/dl (12.0-15.5)
[2018-09-24] MEDS ORDERED: ASPIRIN 300 MG SUPP PR ONE (20:45)
[2018-09-25] VITALS (12 sets, daily range): BP systolic 148–200; BP diastolic 50–90
[2018-09-25] MEDS: NS 1,000 ML IV SCH (07:46)
[2018-09-25] MEDS: ASPIRIN 300 MG SUPP PR SCH (09:00)
[2018-09-25] MEDS ORDERED: cloNIDine HCL 0.1 MG/24 HR PATCH TOP SCH (09:00)
[2018-09-25 12:30] LABS: CREATININE FOR GFR 1.03 MG/DL (0.55-1.30); GLOMERULAR FILTRATION RATE 54.3 (>32); POTASSIUM SERUM 3.5 MEQ/L (3.5-5.1)
--- NOTE | 2018-09-25 13:21 | IPNPDOC ---
Text Note Date of Service The patient was seen on 09/25/18. NOTE The patient is even more awake for longer periods. She can follow the convers ation. She is attempting to speak; she does have some expressive aphasia. The patient has been found to not only have closed head injury, but also stroke. Vital signs: Please see below. Physical exam: HEENT: Patient does have a contusion to the back of her head with orly, there is no active bleeding, the site is tender, headache, appears resolved Cardiovascular: Regular rate and rhythm with a normal S1, S2 and about a grade 2/6 systolic murmur. Respiratory: Clear to auscultation with good air movement. Abdomen: Soft, nontender, nondistended, bowel tones are present. Extremities: No peripheral edema or lesions, pedal pulses are palpable, lower extremities are mobile to hip and knees. Neuro: The patient does have waxing and waning wakefulness, when awake she can follow simple commands and recognizes her daughter, is in some right-sided weakness and expressive aphasia Skin: Patient does have ecchymoses to her arms, likely from medication, there are no acute skin tears ASSESSMENT/PLAN: 1. Closed head injury--initial CT scan did not show any other sign of acute infarct, injury or fracture. Patient was intermittently awake and looking around and then abruptly somnolent and snoring. Concussion is not unlikely. We will continue to monitor her with neuro checks over the next 12-24 hours. We will have her assessed by physical, occupational and speech therapy services before feeding her or mobilizing her. With waxing and waning consciousness we need to always think of possible head bleed. 2. CVA--Initial head CT did not show any acute injury, infarct or bleed. Note was made of encephalomalacia to the left occipital lobe from an old event. It was also made of an old lacunar infarct on the left. Repeat head CT was obtained the following morning because of concerns for possible head bleed. There was new finding of infarct to the left parietal lobe. Patient is still awaiting PT, OT and ST evaluations; with expressive aphasia and variable level of consciousness, there is concern about putting something in her mouth. She has been receiving rectal aspirin. At baseline, she is already on oral aspirin and antilipid agent. 3. Right hip/thigh pain--the patient did fall apparently onto her right side. She complained of pain whenever her right leg was moved. Hip and pelvic x-rays ruled out fracture or dislocation. Patient does not currently complain of pain at all and is able to move her legs freely. 4. The patient's home medications are held due to risk of aspiration with decreased responsiveness. Daughter has noted that patient chokes on occasion e dominic with sucking on mouth swabs. We will hydrate her with IV fluids and DVT prophylaxis will be with serial compression devices. 5. The patient has hypertension; will make use of IV medications until she is able to take orals. We could also consider the use of a clonidine patch. We will need to allow some permissive hypertension due to the presence of stroke. Her usual medications can be restored once she is cleared for oral intake. VS,Fishbone, I+O VS, Fishbone, I+O Laboratory Tests 09/24/18 20:31 09/25/18 11:38 Calcium Level 9.0 Vital Signs Date Time Temp Pulse Resp B/P (MAP) Pulse Ox O2 Delivery O2 Flow Rate FiO2 09/25/18 12:00 97.2 63 18 180/50 (93) 95 2.0 09/23/18 12:46 Nasal Cannula I&O- Last 24 Hours up to 6 AM 09/25/18 06:00 Intake Total 300 ml Output Total 500 ml Balance -200 ml ROMEL CHENEY MD Sep 25, 2018 13:21
[2018-09-25] MEDS ORDERED: KCL 20MEQ IN D5W 1000ML 1,000 ML IV SCH (14:00)
[2018-09-25] MEDS: hydrALAZINE INJ 20 MG/ML VIAL IV PRN ×2 (17:31→23:41)
--- NOTE | 2018-09-25 19:32 | CR ---
DATE OF CONSULTATION: 09/25/2018 REFERRING PHYSICIAN: Yanni Pereyra MD REASON FOR CONSULTATION: Stroke. HISTORY OF PRESENT ILLNESS: Luanne Pedraza is an 83-year-old woman who was admitted at [facility] after a fall. She lives with his son. The patient has been using a walker and cane inside the house. She does not leave the house too much. The patient was getting out of her bed when she fell. She hit her head on the floor. She had a laceration on her scalp requiring orly. Her CT scan of head was unremarkable initially. She had a repeat CT scan of head yesterday morning. This second CT scan of head showed a medium to large left parietal and frontal acute ischemic stroke in posterior division of left middle cerebral artery. The patient is unable to provide any meaningful history. History was obtained from the patient's family who was present during my visit with her. Her daughter and sons were present in the room. They do not report any neck or back pain. They did not report any headaches. They stated that the patient had a stroke in 2017, which may have affected her right side. She was admitted at [facility]. She also has a loop recorder due to her ischemic stroke. She has history of chronic kidney disease. Her creatinine was 1.88 and has decreased to 1.03. Her GFR has improved from 28% to above 50%. Her hemoglobin was found to be 7.1 and it increased to 8.9. Platelet count was 274 with normal white blood counts (WBCs). The patient is confused and is not able to provide much history. She appears to have a receptive aphasia with inability to comprehend, but fluent speech without sentence structure. PAST MEDICAL HISTORY: 1. Hypothyroidism. 2. Congestive heart failure. 3. Sleep apnea. 4. Chronic kidney disease stage III. 5. Pulmonary hypertension. 6. Coronary artery disease. 7. History of stroke in 05/01 for which the patient was admitted at [facility]. 8. Spinal stenosis. 9. Cholecystectomy. 10. Hysterectomy. 11. Peripheral arterial disease. The patient had bifemoral bypass. 12. Carotid artery disease and the patient daughter seems to think that she had 80% stenosis on one side and less than that on the other side. According to do the patient's vascular surgeon in [place], loop recorder placement, renal artery stent. ALLERGIES: No known drug allergies but she is allergic to SHELLFISH. HOME MEDICATIONS: - aspirin 325 mg by mouth daily - amlodipine 5 mg by mouth twice a day - atorvastatin 40 mg by mouth daily - carvedilol 12.5 mg twice a day - chlorthalidone 25 mg by mouth daily - doxazosin 2 mg by mouth twice a day - ferrous gluconate 324 mg by mouth daily - gabapentin 300 mg by mouth at bedtime (q.h.s.) - levothyroxine 75 mcg by mouth daily - Claritin 10 mg by mouth daily - losartan 40 mg by mouth daily - omeprazole 40 mg by mouth daily - Zoloft 50 mg by mouth daily - torsemide 20 mg by mouth daily - Incruse Ellipta 62.5 mg inhalation one puff daily SOCIAL HISTORY: She quit smoking 30 years ago. She denies alcohol or illicit drugs. FAMILY HISTORY: Significant for cancer, diabetes and lung disease. REVIEW OF SYSTEMS: All systems were reviewed and found to be noncontributory except as mentioned is history of present illness. PHYSICAL EXAMINATION: Blood pressure 118/50, respiratory 14, temperature 98.8, pulse 64, 94% saturation on 2 liters nasal cannula oxygen. Heart: Regular rate and rhythm. Lungs: Clear to auscultation. Abdomen: Soft, nontender, nondistended. No pedal edema. No musculoskeletal abnormalities. Skin: No rash. No signs of meningeal irritation. The patient is awake, alert and oriented to self. She has receptive and fluent aphasia and her speech can be best described as word salad. She is unable to follow commands. She is able to move left arm and both legs equally. She has 0/5 strength in right arm. No facial weakness. Tongue and uvula are midline. Memory could not be assessed. Sensory and cerebellar testing could not be performed. Gait could not be tested. ASSESSMENT: 1. Left middle cerebral artery posterior division ischemic stroke. 2. History of carotid artery disease and the patient follows with a vascular surgeon in [place] for peripheral arterial disease and carotid artery disease. Daughter seems to think that one side was more than 80% stenosed. 3. Chronic kidney disease and history of congestive heart failure. PLAN: 1. The patient cannot have Magnetic Resonance Imaging (MRI) scan due to her loop recorder. 2. The patient's family declined CT angiography of head and neck. They want to talk to the patient's airplane technician before making any decisions. 3. Carotid ultrasound. 4. Aspirin 3 mg per rectum daily. 5. Physical, occupational and speech therapy. 6. Swallow evaluation. Will resume her Lipitor 40 mg by mouth daily. She is on a clonidine patch. Keep systolic blood pressure below 180 and diastolic blood pressure below 100.
--- NOTE | 2018-09-25 21:48 | IPN ---
DATE: 09/24/2018 SUBJECTIVE: The patient is seen and examined this morning at the bedside. I had a discussion with her daughter, who has been present as well. The patient remains with an altered mental status and family reports weakness on the right side. She had a CT head this morning that showed acute/subacute left middle cerebral artery infarct. Her renal function has recovered towards baseline. She remains nothing by mouth. VITAL SIGNS: Temperature 98.5, pulse 62, respiratory rate 18, blood pressure 147/67, saturating 92% on 2 liters nasal cannula. Intake yesterday was 875, urine output yesterday was 1600, weight in the bed scale today is not recorded. GENERAL: The patient is seen lying in bed, drowsy but easily arousable, has trouble focusing and making eye contact. Does not answer questions appropriately. continues to repeat yes, yes, yes. NECK: Supple. Jugular veins are not elevated. HEART: Sounds are regular S1-S2. There is a systolic murmur. LUNGS: Shows symmetric air entry, but there is poor effort. ABDOMEN: Soft and nontender. There are bowel sounds. GENITOURINARY: Shows Kathleen catheter with a clear yellow urine. EXTREMITIES: Negative for edema. She squeezed with both hands on command, but the right sided manager scheduling was weaker than left. NEUROLOGIC: The patient is able to follow some simple commands with much prompting and repetition. She has excess expressive aphasia repeat yes, yes, yes. She is not at her baseline mental status. LABORATORY DATA: White count 13.3, hemoglobin 7.1, platelet 274, sodium 142, potassium 3.4, BUN 26, creatinine 1.1 IMAGING STUDIES: Head CT showed acute/subacute left middle cerebral artery (MCA) territory infarction. INPATIENT MEDICATIONS: Reviewed by myself. She is started on hydralazine 20 mg IV every 6 hours. Remainder of the medications are unchanged from prior. PROBLEMS: 1. Acute renal failure superimposed on chronic kidney disease (CKD) stage III to stage IV. Patient's renal function has recovered and is actually presently better than her usual baseline. It is likely better than baseline because her diuretics and her home angiotensin receptive terrell are all held, as she is unable to take oral medications at this time. She has known atrophic right kidney. I would plan to resume her on diuretic therapy in the coming 24 hours; however, at present, she is nothing by mouth and IV fluids are running at a minimal rate of 15 mL/hour and volume status is acceptable. There is no need for diuretic initiation today. 2. Anemia related to chronic kidney disease and also iron deficiency. The patient has received iron infusions in the past. At present, hemoglobin is significantly suboptimal at 7.1 and she is pending 2 units packed red blood cell transfusion. 3. Acute/subacute left MCA infarction. Patient is altered and not at her baseline mentation. She is nothing by mouth. I suggest neurologic evaluation, given the new stroke. Neurology will also be able to guide in terms of goal blood pressure at present time for this patient. 4. Hypertension. Patient has a history of significantly difficult to treat hypertension. However, blood pressures have been well-controlled thus far and her home blood pressure pills are presently on hold.
--- NOTE | 2018-09-25 23:08 | IPN ---
DATE: 09/25/2018 SUBJECTIVE: Patient seen and examined this morning at the bedside. Various family members are present. They report that her expressive aphasia is mildly improved. She was able to call her daughter by her name. Her right-sided weakness also seems to be a little better than yesterday. She remains nothing by mouth. Vital signs: Temperature 97.2, pulse 62, respiratory rate 18, blood pressure 180/50, saturating 95% on 2 liters nasal cannula. Weight in the bed scale today is 58.1 kg. General: The patient is seen lying in bed awake and alert, attempts to communicate but has expressive slight aphasia, answers some very simple questions appropriately, but mostly is incomprehensible. Makes better eye contact today than yesterday. Tongue is dry. Neck is supple. Jugular veins were not elevated. Cardiac: S1-S2, systolic murmur. Lungs show symmetric air entry. The abdomen is soft and nontender. There are bowel sounds. Genitourinary: Shows Kathleen catheter with urine. The lower extremities are negative for edema or clubbing or cyanosis. Neurologic: The patient is more alert today than yesterday. She gripped with the right hand and raises the right leg on command. There is expressive aphasia. There is no weakness noted on the left LABORATORY DATA: Sodium 144, potassium 3.5, BUN 23, creatinine 1.0, hemoglobin 8.9. INPATIENT MEDICATIONS: I discontinued normal saline and changed her IV fluids to D5W with 20 mEq of potassium chloride at 40 mL an hour. She was started on rectal aspirin. She was also started on clonidine patch. Remainder of medications are unchanged from prior. PROBLEMS: 1. Acute kidney injury on chronic kidney disease (CKD) stage III. The patient's renal function has fully recovered to baseline. Actually her renal function presently is better than her usual baseline and this is likely because her home angiotensin receptive terrell and her usual diuretics are being held. She is nothing by mouth and I am starting her on some gentle hydration. Would continue to hold her diuretics at present. 2. Acute/subacute left middle cerebral artery (MCA) stroke. The patient is nothing by mouth. There is expressive aphasia. She has been started on rectal aspirin. She is pending neurology evaluation and awaiting physical therapy (PT), occupational therapy (OT) and speech therapy evaluations 3. Hypertension. The patient has a history of resistant and very difficult to control hypertension. At present, we are allowing for some permissive hypertension in view of acute stroke. When she is able to take oral medications, I would suggest to resume her losartan and her amlodipine. Her remainder home blood pressure medications including carvedilol, doxazosin can be resumed in a staggered fashion. 4. Diastolic congestive heart failure. Volume status is presently acceptable. The patient has been nothing by mouth since admission. Her weights are down trending. Her diuretics are held and I am starting her on some gentle hydration with D5W with 20 mEq of potassium chloride to run at 40 at mL per hour until she is able to resume oral intake.
[2018-09-26] VITALS: BP 180/90
[2018-09-26 00:10] VITALS: BP 164/72
[2018-09-26] MEDS: hydrALAZINE INJ 20 MG/ML VIAL IV PRN ×2 (04:25→15:30)
[2018-09-26 06:22] LABS: CALCIUM LEVEL 8.9 MG/DL (8.8-10.2); CREATININE FOR GFR 1.09 MG/DL (0.55-1.30); GLOMERULAR FILTRATION RATE 50.9 (>32); POTASSIUM SERUM 3.3 MEQ/L (3.5-5.1)
[2018-09-26 08:00] VITALS: BP 212/62
[2018-09-26] MEDS ORDERED: hydrALAZINE INJ 20 MG/ML VIAL IV ONE (08:30)
--- NOTE | 2018-09-26 08:38 | REP ---
DUPLEX CAROTID SONOGRAPHY: HISTORY: Head injury. Stroke. No comparison study. Left middle cerebral artery infarct on recent CT study. SONOGRAPHIC FINDINGS: Exam quality is inhibited by this patient's limited ability to cooperate and motion. Antegrade flow was observed in both vertebral arteries. RIGHT CAROTID: The right common carotid artery shows mild plaquing. There is a moderate to marked mixed soft and calcific plaquing in the right carotid bulb extending into the proximal ICA and proximal ECA on two-dimensional scanning. Stenotic flow velocities are observed in the right and internal carotid artery and right external carotid artery. Velocity Chart Right Carotid: PSV EDV Right CCA 131 cm/s Right ICA 205 cm/s 35 cm/s Right ECA 372 cm/s Right ICA/CCA ratio elevated 1.6. IMPRESSION: Significant mixed plaquing. 50-69% category narrowing in the right ICA by Doppler velocity criteria. LEFT CAROTID: The left common carotid artery shows mixed plaquing. There is moderate to marked mixed plaquing in the bulb, proximal ICA and proximal ECA on the left side. Stenotic flow velocities are observed in the ICA and ECA on Doppler interrogation on the left side. Velocity Chart Left Carotid: PSV EDV Left CCA 92 cm/s Left ICA 273 cm/s 25 cm/s Left ECA greater than 500 cm/s Left ICA/CCA ratio elevated 2.9. IMPRESSION: Significant plaquing on the left. 50-69% category narrowing in the left ICA by Doppler velocity criteria. Electronically Signed by Ash Rock MD 09/26/2018 08:43 A
[2018-09-26] MEDS ORDERED: amLODIPine 5 MG TAB PO SCH (09:00)
[2018-09-26] MEDS ORDERED: TORSEMIDE 20 MG TAB PO SCH (09:00)
[2018-09-26] MEDS ORDERED: CARVedilol 12.5 MG TAB PO SCH (09:00)
[2018-09-26] MEDS: FERROUS GLUCONATE 324 MG TAB PO SCH ×2 (09:00→12:43)
[2018-09-26] MEDS: MAGNESIUM OXIDE 400 MG TAB (MAG-OX) PO SCH ×2 (09:00→12:44)
[2018-09-26] MEDS ORDERED: DOXAZOSIN MESYLATE 4 MG TAB PO SCH (09:00)
[2018-09-26] MEDS: ASPIRIN 325 MG TAB PO SCH (09:00)
[2018-09-26] MEDS: PANTOPRAZOLE 40MG TAB (PROTONIX) PO SCH ×2 (09:00→12:42)
[2018-09-26] MEDS: SERTRALINE HCL 50 MG TAB PO SCH ×2 (09:00→12:42)
[2018-09-26] MEDS ORDERED: LOSARTAN 25 MG TAB PO SCH (09:00)
[2018-09-26] MEDS ORDERED: CHLORTHALIDONE 25 MG TAB PO SCH (09:00)
[2018-09-26] MEDS: ASPIRIN 300 MG SUPP PR SCH (09:29)
[2018-09-26 10:42] LABS: HEMATOCRIT 30.1 % (36.0-47.0); HEMOGLOBIN 9.4 g/dl (12.0-15.5); MEAN CORPUSCULAR HEMOGLOBIN 28.6 pg (27.0-33.0); MEAN CORPUSCULAR HGB CONC 31.2 g/dl (32.0-36.5); MEAN CORPUSCULAR VOLUME 91.5 fl (80.0-96.0); PLATELET COUNT, AUTOMATED 305 10^3/uL (150-450); RED BLOOD COUNT 3.29 10^6/uL (4.00-5.40); WHITE BLOOD COUNT 15.5 10^3/uL (4.0-10.0)
--- NOTE | 2018-09-26 10:45 | NUR ---
Swallow evaluation recommendations: pureed solids, honey thick liquids, feeding assistance w/ spoon, upright positioning, medications crushed in puree please. Dysphagia tx for oral motor exercises & PO trials for upgrade as appropriate. Addendum: 09/26/18 at [address] [facility] Amended: Links added.
--- NOTE | 2018-09-26 12:20 | NUR ---
Pt w/ severe cognitive-linguistic impairment. Recommend speech therapy targeting following simple directions, answering yes/no questions, and orientation. Addendum: 09/26/18 at 1221 by NATHAN LAY [facility] Amended: Links added.
[2018-09-26] MEDS: POTASSIUM CHLORIDE INJ 40 MEQ in D5W 1,000 ML IV SCH (12:42)
[2018-09-26] MEDS: SUCRALFATE 1 GM TAB PO SCH ×3 (12:44→20:48)
[2018-09-26] MEDS ORDERED: SLF 3 ML SYR IV PRN (13:30)
[2018-09-26] MEDS: SLF 3 ML SYR IV SCH ×2 (14:00→20:48)
[2018-09-26 16:00] VITALS: BP 144/80
[2018-09-26] MEDS: NITROGLYCERIN 2% OINT 1 GM *U/D* PKT TOP SCH ×2 (19:52→23:53)
[2018-09-26] MEDS: cloNIDine HCL 0.2 MG/24 HR PATCH TOP SCH (19:56)
--- NOTE | 2018-09-26 19:59 | IPNPDOC ---
Text Note Date of Service The patient was seen on 09/26/18. NOTE Ms. Pedraza is awake and alert. Her speech is more intelligible than it has been. She still does not consistently understand or follow commands. Patient has sustained closed head injury related to a severe fall and has also developed stroke lesion to the left parietal lobe. Vital signs: Please see below. Physical exam: HEENT: Patient does have a contusion to the back of her head with orly, there is no active bleeding, the site is tender, headache appears resolved Cardiovascular: Regular rate and rhythm with a normal S1, S2 and about a grade 2/6 systolic murmur. Respiratory: Clear to auscultation with good air movement. Abdomen: Soft, nontender, nondistended, bowel tones are present. Extremities: No peripheral edema or lesions, pedal pulses are palpable, lower e xtremities are mobile to hip and knees. Neuro: The patient does have waxing and waning wakefulness, when awake she can follow simple commands and recognizes her daughter, demonstrates some right-sided weakness and expressive aphasia Skin: Patient does have ecchymoses to her arms, likely from medication, there are no acute skin tears ASSESSMENT/PLAN: 1. Closed head injury--initial CT scan did not show any other sign of acute infarct, injury or fracture. Patient was intermittently awake and looking around and then abruptly somnolent and snoring. Concussion is not unlikely. We will continue to monitor her with neuro checks over the next 12-24 hours. She is being assessed by physical, occupational and speech therapy services before feeding her or mobilizing her. With waxing and waning consciousness we need to always think of possible head bleed. 2. CVA--Initial head CT did not show any acute injury, infarct or bleed. Note was made of encephalomalacia to the left occipital lobe from an old event. It was also made of an old lacunar infarct on the left. Repeat head CT was obtained the following morning because of concerns for possible head bleed. There was new finding of infarct to the left parietal lobe. Patient is undergoing PT, OT and ST evaluations; speech therapy has cleared her for a pured diet. She had been receiving rectal aspirin. At baseline, she is already on oral aspirin and antilipid agent. We can restore her other medications. Now that she's been cleared for by mouth intake. 3. Right hip/thigh pain--the patient did fall apparently onto her right side. She complained of pain whenever her right leg was moved. Hip and pelvic x-rays ruled out fracture or dislocation. Patient does not currently complain of pain at all and is able to move her legs freely. 4. The patient's home medications were held due to risk of aspiration with decreased responsiveness. Daughter had noted that patient chokes on occasion even with sucking on mouth swabs. Again, she has been cleared by speech therapy services for pured diet. She will have ongoing inpatient therapy. 5. The patient has hypertension; will make use of IV medications as needed for systolic blood pressures greater than 170-180. We will need to allow some permissive hypertension due to the presence of stroke. We can restore her usual oral medications and monitor for response. VS,Fishbone, I+O VS, Fishbone, I+O Laboratory Tests 09/26/18 05:43 Red Blood Count 3.29 L, Mean Corpuscular Volume 91.5, Mean Corpuscular Hemoglobin 28.6, Mean Corpuscular Hemoglobin Concent 31.2 L, Red Cell Distribution Width 16.2 H 09/26/18 05:46 Calcium Level 8.9 Vital Signs Date Time Temp Pulse Resp B/P (MAP) Pulse Ox O2 Delivery O2 Flow Rate FiO2 09/26/18 16:00 97.5 97 18 144/80 (101) 95 2.0 09/23/18 12:46 Nasal Cannula I&O- Last 24 Hours up to 6 AM 09/26/18 06:00 Intake Total 385 ml Output Total 725 ml Balance -340 ml ROMEL CHENEY MD Sep 26, 2018 19:59
[2018-09-26 20:00] VITALS: BP 140/75
[2018-09-26] MEDS: GABAPENTIN 100 MG CAP PO SCH (20:48)
[2018-09-26] MEDS: ATORVASTATIN 20 MG TAB PO SCH (20:48)
[2018-09-26] MEDS ORDERED: LOSARTAN 50 MG TAB PO SCH (21:00)
--- NOTE | 2018-09-26 21:31 | CR ---
CARDIOLOGY CONSULTATION DATE OF CONSULTATION: 09/26/2018 REFERRING PHYSICIAN: Dr. Yanni Kiser. INDICATION: Hypertensive heart disease, unwilling to take oral therapy. HISTORY: This 83-year-old mother of three, resident of [place], [place], is well-known to my cardiology practice, having a history of hypertensive heart disease complicated by abnormal EKG-left bundle branch block and heart failure (diastolic dysfunction). Despite multiple coronary risk factors and documented carotid, renal and peripheral atherosclerosis (post renal stenting and right axillobifemoral bypass grafting), has been free of symptomatic coronary artery disease. She has also been followed by nephrology with chronic renal insufficiency. Has suffered cerebral vascular accidents, June 2017 (left posterior cerebral artery), with prior CT angiogram of the head and neck showing a 60% right and 85% left proximal internal carotid arterial stenoses associated with a left occipital and parietal lobe infarction, verified by MRI. Transesophageal echocardiogram was performed showing no intracardiac mass or thrombus. A loop recorder was implanted with a suspicion of paroxysmal arrhythmia, but has never shown evidence of atrial fibrillation, even up to her most recent transmission, 09/07/2018. Last seen in our office only several weeks ago. Admitted 09/23/[address] scan evidence of an acute left middle cerebral artery territory infarction, no hemorrhage, an old left occipital, as well as left basal ganglia lacunar infarctions. At this point, she is not complaining of any cardiovascular symptoms. Although she is able to follow commands to a degree, she has been refusing her oral antihypertensive therapies. Swallowing evaluation by speech therapy earlier today showed no significant problem. OTHER KNOWN PAST MEDICAL PROBLEMS: 1. Smoking-induced wheezy bronchitis. 2. Pulmonary granulomatous disease with pulmonic, hepatic and splenic calcifications on serial chest CT scans. 3. Nocturnal oxygen desaturations, wears supplemental oxygen by nasal prongs nightly. 4. Chronic renal insufficiency. 5. Hypothyroidism on replacement therapy since March 2012. 6. Gastroesophageal reflux disease. 7. Peripheral neuropathy. 8. Degenerative joint disease. CORONARY RISK FACTORS: 1. Advanced age. 2. Hypercholesterolemia. 3. Hypertension. 4. Former heavy smoker. 5. Family history of premature coronary heart disease. 6. Symptomatic carotid vascular disease. PAST SURGICAL HISTORY: 1. Partial hysterectomy 1968. 2. Cholecystectomy 1984. 3. Thyroidectomy July 2005. 4. Renal artery stenting August 2011. 5. Right axillobifemoral arterial bypass December 2011. 6. Right retinal repair 2007. 7. Cataract extraction 2007. 9. Colonoscopy 2011. CARDIAC TESTIN. Stress echocardiogram October 2011 showed fair exercise tolerance with no inducible chest pain, EKG ST-T wave change and augmentation of all left ventricular wall segments. 2. EKG since at least August 2015 have shown evidence of left atrial conduction disturbance, prominent voltages and repolarization abnormalities consistent with left ventricular hypertrophy (LVH). Since 08/22/2015, has had evidence of a left bundle branch block. 3. RegSoft Tissue Regenerationoson Cardiolite heart scan 09/09/2015 showed no inducible chest pain, baseline left bundle branch block (LBBB) with no arrhythmia, normal left ventricular size and hyperkinetic wall motion, with normal stress SPECT myocardial perfusion images. 4. Echocardiogram 08/31/2018 showed some technical difficulty, but mild LVH with hyperkinetic wall motion, moderate left atrial enlargement, with normal right heart chamber sizes and estimated pulmonary arterial pressure at least moderately increased. Normal inferior vena cava (IVC) size and collapse against an elevated central venous pressure. Normal aortic dimensions with moderate calcific aortic stenosis and moderate insufficiency. Severe mitral annular calcification with mild mitral stenosis and mild mitral regurgitation. No pericardial effusion. MEDICATIONS: Home medications have included: - carvedilol 12.5 mg twice a day - losartan 25 mg by mouth twice a day - amlodipine 5 mg twice a day - doxazosin 2 mg by mouth twice a day - torsemide 20 mg daily - chlorthalidone 25 mg daily - aspirin 325 mg daily - levothyroxine 75 mcg daily - omeprazole 40 mg daily - sucralfate 1 gram before meals and bedtime - gabapentin 300 mg by mouth nightly - atorvastatin 40 mg by mouth nightly - albuterol inhaler two puffs four times a day as needed dyspnea - magnesium oxide 400 mg by mouth daily - Incruse Ellipta one inhalation daily - sertraline 50 mg by mouth daily - multivitamin with folic acid one gummy bear daily - ferrous gluconate 324 mg by mouth daily - loratadine 10 mg daily - Breo Ellipta 200/25 one inhalation daily - calcium/vitamin D 500/200 one tablet daily ALLERGIES: SHELLFISH. PHYSICAL EXAMINATION: CONSTITUTIONAL: Slightly pale elderly woman of medium body build lying with the head of the bed elevated 45 degreed. Obviously not moving her right side. Left side movements are normal. Able to stick her tongue out and follow simple commands. Unable to meaningfully communicate. VITAL SIGNS: Heart rate 88 bpm and regular, blood pressure 150/45 (left arm) and 128/45 (right arm). Obvious right subclavian surgical incision post right axillobifemoral bypass. Respiratory rate 18, oxygen saturation 95% on supplemental oxygen by nasal prongs at 2 liters. Afebrile. Weight 113 pounds, height 60 inches, body mass index (BMI) 22.1. EYES: Slightly pale conjunctivae, but no icterus. ENT/MOUTH: No central cyanosis. Normal oral moisture. NECK: Trachea midline. Thyroid not enlarged. Carotid bruit over the right neck, but less so over the left. Jugular veins were not elevated. CHEST: Increased anteroposterior chest diameter with fair entry over both lung rubalcava. Few bilateral lower lobe scattered inspiratory crepitations. Slight prolongation of expiration, but no audible wheeze. CARDIOVASCULAR: Apical impulse at the midclavicular line, fifth intercostal space. Normal S1 with accentuated S2. No current audible S2 splitting. Obvious S4 and somewhat harsh systolic ejection murmur maximal at the right base with early diastolic decrescendo murmur left sternal border. Brisk right carotid upstroke and increased volume. Bruit as mentioned. Upper extremity pulses revealed a reduction in right brachial and right radial pulse compared to the left. Has palpable femoral pulses, but pedal pulses were not palpable. Abdominal aorta was not palpable, but audible transmitted bruit. Chronic stasis dermatitis. No current lower extremity or sacral pitting. GASTROINTESTINAL (GI): Soft, nontender abdomen with no hepatosplenomegaly. Normal bowel sounds. Rectal examination not indicated. MUSCULOSKELETAL: No obvious joint deformities. Flaccid right arm. Increased tone right lower leg, but normal tone on the left side. Normal spine curvature. NEURO/PSYCH: As described above. No involuntary movements. SKIN: Slight pallor. There is stasis dermatitis and well-healed surgical incisions. No icterus or rash. INVESTIGATIONS: Portable upright chest x-ray on admission was reviewed independently and shows obvious cardiomegaly, even allowing for this portable technique. Obvious calcification of her aortic arch. Pulmonary vasculature did not appear to be congested. Increased interstitial markings and nodularity, in keeping with her known interstitial lung disease. No pleural effusion. EK09/23/2018 at 3:28 a.m. showed underlying sinus bradycardia at 55 bpm. LA conduction disturbance with left bundle branch block. This was not dramatically changed from our last tracing, 09/20/2018. Blood work: Studies today showed a hemoglobin of 9.4, with slightly reduced MCHC, but normal MCV. White blood cell count was up to 15.5. Normal platelet count. Admission PT/INR was 15/1.2 with normal PTT. Admission electrolytes were normal, but her potassium has drifted down to 3.3 today. Admission BUN of 48 has decreased to 23 with IV hydration. Admission creatinine of 1.8 has drifted to 1.09 earlier today. Fasting glucose 119. Serum calcium was normal. Admission serum albumin was only 2.3. Normal CPK and other liver function studies. Urine screen for opiates, amphetamines, benzodiazepines, cocaine and cannabinoids were all negative. Ethanol level was negative. IMPRESSION/PLAN: 1. Heart failure (diastolic/chronic): With her current IV fluids and temporarily off her diuretic therapy because of hypokalemia, she appears to be compensated. BUN and creatinine have significantly improved. Her oral intake has decreased because of her neurological problems. Obviously, resuming her diuretics should be postponed until her electrolytes have normalized. Remains on IV fluid in light of decreased oral intake. 2. Abnormal EKG/left bundle branch block: Longstanding problem. As mentioned, despite multiple coronary risk factors and virtually generalized atherosclerotic disease, has been free of symptomatic myocardial ischemia. Admission troponin-I of 0.12 is indeterminate in light of her renal insufficiency. Previous noninvasive cardiac testing, stress echocardiogram and pharmacological stress heart scan showed normal myocardial perfusion. Lua protection of her heart would be optimal blood pressure control. 3. Hypertensive heart disease (benign with heart failure): Compensated, as mentioned. Current blood pressure would not be totally unacceptable given her recent neurological problems. Frustratingly, the patient is not willing to take her antihypertensive therapies orally. In light of this, I have temporarily withheld these agents in favor of increased topical clonidine patch 0.2 mg for 24 hours and topical Nitropaste 1 inch every 4 hours. Hold for systolic blood pressure less than 150 mmHg systolic. She also has an order for hydralazine 20 mg IV every 6 hours. Hold for systolic blood pressure less than 170. 4. Mitral and aortic valve disorder (nonrheumatic): As well recognized, degenerative changes of her mitral and aortic valvular structures with moderate aortic stenosis and mild mitral stenosis, moderate aortic insufficiency and mild mitral insufficiency. Fortunately, no symptoms or signs of endocarditis. I have discussed her situation with her son and daughter, who appear to appreciate our difficulties with providing adequate blood pressure control with the patient refusing oral therapy. I will continue to monitor her blood pressure and fluid status with you. I appreciate the opportunity to participate in her care. We continue to respect her wish for DO NOT RESUSCITATE. Thank you, Stephan Bejarano MD [facility]
[2018-09-26 23:59] VITALS: BP 140/60
[2018-09-27] VITALS (8 sets, daily range): BP systolic 150–190; BP diastolic 40–72
[2018-09-27] MEDS: NITROGLYCERIN 2% OINT 1 GM *U/D* PKT TOP SCH ×6 (04:48→23:57)
[2018-09-27] MEDS: SLF 3 ML SYR IV SCH ×3 (05:01→22:00)
[2018-09-27 06:18] LABS: CALCIUM LEVEL 8.7 MG/DL (8.8-10.2); CREATININE FOR GFR 1.2 MG/DL (0.55-1.30); GLOMERULAR FILTRATION RATE 45.6 (>32)
[2018-09-27] MEDS: SUCRALFATE 1 GM TAB PO SCH ×4 (07:30→21:00)
[2018-09-27 07:40] LABS: MAGNESIUM LEVEL 2.3 MG/DL (1.8-2.4)
[2018-09-27 07:44] LABS: BASO # 0.1 10^3/uL (0.0-0.2); BASO % 0.2 % (0.0-1.0); EOS # 0.1 10^3/uL (0.0-0.50); EOS % 0.4 % (0.0-3.0); HEMATOCRIT 31.7 % (36.0-47.0); HEMOGLOBIN 10.1 g/dl (12.0-15.5); LYMPH # 1.4 10^3/uL (1.5-4.5); LYMPH % 6.5 % (24.0-44.0); MEAN CORPUSCULAR HEMOGLOBIN 28.9 pg (27.0-33.0); MEAN CORPUSCULAR HGB CONC 31.9 g/dl (32.0-36.5); MEAN CORPUSCULAR VOLUME 90.6 fl (80.0-96.0); MONO # 1.7 10^3/uL (0.0-0.8); MONO % 7.6 % (0.0-5.0); NEUTROPHILS # 18.5 10^3/uL (1.8-7.7); NEUTROPHILS % 84.6 % (36.0-66.0); PLATELET COUNT, AUTOMATED 319 10^3/uL (150-450); WHITE BLOOD COUNT 21.9 10^3/uL (4.0-10.0)
--- NOTE | 2018-09-27 08:18 | IPN ---
DATE: 09/26/2018 SUBJECTIVE: Luanne is seen and examined this morning at the bedside. The patient remains with expressive aphasia. The family reports that she has been able to say a few more words in the past 24 hours than she was previously. She is now on a puree diet but is having trouble taking her oral anti hypertensive and has continued with topical and IV medications instead. Her blood pressures have improved from prior. Neurology has recommended keeping blood pressure below 180/100. Her oral intake remains extremely poor and she continues on very gentle IV fluids. Vital signs: Temperature 97.8, pulse 71, respiratory rate 18, blood pressure 140/75, saturating 97% on 2 liters nasal cannula. Intake yesterday was 380, urine output yesterday was 770, weight on the bed scale today is 51.3. General: The patient is seen drowsy but easily arousable in bed. Head of the bed elevated. Elderly and frail appearing female in no acute distress. She follows simple commands and attempts to communicate but has expressive aphasia. Makes eye contact. Neck is supple. Jugular veins were not elevated. Tongue is dry. Cardiac: 1/2 systolic murmur. No edema in the peripheries nor in the dependent area. Lungs: Show symmetric air entry without crackles or rales. Abdomen is soft and nontender. There are bowel sounds. 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 She raises her right foot on command. Neurologic: Expressive aphasia, right-sided weakness mostly in the upper extremity. LABORATORY DATA: White count 15.5, hemoglobin 9.4, sodium 142, potassium 3.3, BUN 23, creatinine 1.0. INPATIENT MEDICATIONS: She is on D5W with 40 mEq of potassium chloride running at 40 mL an hour, aspirin, statin. She continues on topical clonidine and IV hydralazine. Remainder medications are unchanged from prior. PROBLEMS: 1. Acute kidney injury on chronic kidney disease stage III B. The patient's renal function is even better than her usual baseline and this is because her home angiotensin receptive terrell and her chronic home diuretics are presently being held. She is having minimal oral intake at this time and she is receiving very gentle IV fluids at present and I would continue to hold her home diuretics for now. Her angiotensin receptive terrell can be resumed once the patient is tolerating oral medications. 2. Hypertension in the setting of acute stroke. Neurology recommends blood pressure less than 180/100. The patient is now on a pureed diet. I had ordered losartan 25 mg twice a day and amlodipine 5 mg by mouth twice a day; however the patient is having trouble with swallowing medications and she is instead being continued on clonidine patch and IV hydralazine and her blood pressures are currently acceptable. 3. Diastolic congestive heart failure. Volume status is presently acceptable. She has not had much in the way of oral intake since admission. Her diuretics are presently held. I am increasing the potassium in her dextrose containing fluids, and we will continue to run at a very gentle rate of 40 mL per hour until she is able to resume oral intake. 4. Hypokalemia. Potassium in IV fluids has been increased.
[2018-09-27] MEDS: ASPIRIN 325 MG TAB PO SCH (08:42)
[2018-09-27] MEDS: FERROUS GLUCONATE 324 MG TAB PO SCH (08:48)
[2018-09-27] MEDS: MAGNESIUM OXIDE 400 MG TAB (MAG-OX) PO SCH ×2 (08:48→09:00)
[2018-09-27] MEDS: PANTOPRAZOLE 40MG TAB (PROTONIX) PO SCH (08:48)
[2018-09-27] MEDS: SERTRALINE HCL 50 MG TAB PO SCH (08:48)
--- NOTE | 2018-09-27 09:18 | REP ---
PORTABLE CHEST X-RAY: Single view. HISTORY: Abnormal breath sounds. COMPARISON STUDY: September 23, 2018. FINDINGS: EKG monitoring electrodes overlie the chest. There is a loop recorder visible. Clips are noted in the right axillary soft tissues. Mild cardiac enlargement is observed. A hiatal hernia is suspected. There is plate-like atelectasis or fibrosis in the left base. No definite infiltrate. Diffusely prominent interstitial markings are seen consistent with fibrosis. IMPRESSION: Cardiomegaly. Linear fibrosis versus plate-like atelectasis left base. Probable hiatal hernia. No acute infiltrate. Electronically Signed by Ash Rock MD 09/27/2018 09:52 A
[2018-09-27] MEDS ORDERED: D5W/0.45% SODIUM CHLORIDE 1,000 ML IV SCH (12:30)
[2018-09-27] MEDS: POTASSIUM CHLORIDE INJ 40 MEQ in D5W 1,000 ML IV SCH (12:32)
--- NOTE | 2018-09-27 12:46 | IPNPDOC ---
Text Note Date of Service The patient was seen on 09/27/18. NOTE Subjective: Patient was seen and examined at the bedside. Currently patient does not report any pain. Is unable to answer questions appropriately, usually answers yes to all questions. Objective: Vitals (See below) General: Lying in bed, no acute distress, comfortable, Awake / Alert HEENT: NC, AT CVS: +S1S2 Lungs: Fair air entry b/l, -w/r/r Abdomen: Soft, ND, NT Extremities: - Edema, - Calf tenderness Neuro: does not move RUE Assessment and plan: RUE weakness /confusion - likely 2/2 acute ischemic stroke at left MCA - Still has persistent weakness of RUE - CT head 09/24: Findings consistent with acute / subacute left middle cerebral artery territory infarct. No hemorrhage seen. Old left occipital lobe cortical infarct. Old lacunar infarct left basal ganglia. - Duplex Carotid US 09/26: Significant plaquing on the left and right at 50-69% category narrowing in the left and right ICA by Doppler velocity criteria. - c/w ASA 325; c/w Atorvastatin 40 - c/w PT, OT, Speech therapy - Neurology on consult Difficulty swallowing - 2/2 above - Dietary changes as per speech therapy Head laceration - s/p repair - likely 2/2 fall - Initial CT scan 09/23: 1. Mild volume loss and small vessel ischemic changes. 2. No acute intracranial abnormality. Other findings as described above. Right hip / thigh pain - Currently patient does not report any pain - Hip XR 09/23: Negative pelvis bilateral hip study. - c/w PT / OT HTN - s/p Period of permissive HTN - c/w Clonidine patch, c/w Hydralazine PRN Neuropathy - c/w Gabapentin GI prophylaxis - c/w Protonix / Carafate DVT prophylaxis - c/w BARBARA/Sequentials Code status: - DNR Disposition: - Anticipate that she will go to terminal system operator care / NH VS,Oh, I+O VS, Oh, I+O Laboratory Tests 09/27/18 05:25 Red Blood Count 3.50 L, Mean Corpuscular Volume 90.6, Mean Corpuscular Hemoglobin 28.9, Mean Corpuscular Hemoglobin Concent 31.9 L, Red Cell Distribution Width 16.7 H, Neutrophils (%) (Auto) 84.6 H, Lymphocytes (%) (Auto) 6.5 L, Monocytes (%) (Auto) 7.6 H, Eosinophils (%) (Auto) 0.4, Basophils (%) (Auto) 0.2, Neutrophils # (Auto) 18.5 H, Lymphocytes # (Auto) 1.4 L, Monocytes # (Auto) 1.7 H, Eosinophils # (Auto) 0.1, Basophils # (Auto) 0.1, Calcium Level 8.7 L Vital Signs Date Time Temp Pulse Resp B/P (MAP) Pulse Ox O2 Delivery O2 Flow Rate FiO2 09/27/18 12:05 160/60 09/27/18 07:24 97.1 63 20 99 2.0 09/23/18 12:46 Nasal Cannula I&O- Last 24 Hours up to 6 AM 09/27/18 06:00 Intake Total 940 ml Output Total 300 ml Balance 640 ml JHON CALI MD Sep 27, 2018 12:46
[2018-09-27] MEDS: ALBUTEROL SULFATE 2.5 MG/0.5 ML INH NEB SOLN INH SCH ×4 (13:12→23:05)
[2018-09-27 14:01] LABS: CLOSTRIDIUM DIFFICILE PCR NEGATIVE (NEGATIVE)
--- NOTE | 2018-09-27 19:17 | IPN ---
DATE: 09/27/2018 CARDIOLOGY PROGRESS NOTE SUBJECTIVE: Frustratingly, the patient's dysphasia still interferes with her ability to communicate, but it is apparent she is able to grasp the meaning of some verbal speech. Still does not follow commands well and is not eating, according to the nurses. Continues to refuse her oral medications. OBJECTIVE: Slightly pale elderly woman of medium body build, lay comfortably with the head of the bed elevated 45 degrees. Heart rate 72 beats per minute and regular, blood pressure 166/60. Respiratory rate 18 per minute, oxygen (O2) saturation 96% on 2 liters by nasal prongs. Remains afebrile. Weight today is slightly less than yesterday. Kathleen catheter was removed yesterday, and bladder scans showed she was retaining urine. Straight cath produced 500 mL of urine that was somewhat dark. Slight pallor. Normal oral moisture. No central cyanosis. Trachea midline. Jugular veins did not appear to be elevated. Does not take a deep breath but no obvious inspiratory rales or expiratory wheezes. Heart sounds unchanged. No dependent edema. 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 PORTABLE UPRIGHT CHEST X-RAY: This was ordered earlier today by myself because of leukocytosis and a few inspiratory crepitations reported by the nurse. Reviewed independently, the scan shows cardiomegaly with some degenerative calcification of the aortic arch. Pulmonary vasculature did not appear to be congested. Continues to have increased interstitial markings over both lung rubalcava in keeping with her documented pulmonary fibrosis. No localized infiltrate, although her left base has plate-like atelectasis. No pleural effusion. LABORATORY DATA: Blood work today showed a hemoglobin of 10.1 with white blood cell count having increased to 21,900. Normal platelet count. Chemistry currently shows electrolyte balance with potassium up to 4.0. BUN essentially stable at 24, creatinine up slightly to 1.2, fasting glucose was 128. Serum magnesium was 2.3. IMPRESSION/PLAN: 1. Pulmonary atelectasis: Has an impressive leukocyte response, though remains afebrile. She is not coughing up any sputum. No other obvious source of infection. We requested that she increase her activity and be out of bed more often and have ordered albuterol nebulizer therapy to encourage improved respiration. I have requested blood cultures and urine culture for safety's sake. 2. Heart failure (diastolic/chronic): Has no clinical or radiographic features of congestive failure at this time. BUN essentially stable. Creatinine has slightly increased from yesterday but O2 saturation is stable and curiously her weight is actually down from yesterday. Continues on IV fluid replacement as she is unwilling to take oral diet. 3. Abnormal EKG/left bundle branch block: Remains free of any significant rhythm disturbance. No apparent chest pain. 4. Hypertensive heart disease (benign with heart failure): Blood pressure control remains a challenge in light of her lack of cooperation with oral antihypertensive therapy. For the time being, we will continue with a combination of clonidine patch, topical nitro paste (the dosage has been increased today) and IV hydralazine if necessary. Renal function as mentioned above. Her potassium and magnesium levels are currently normal. 5. Mitral and aortic valve disorder (nonrheumatic): No auscultatory change. Leukocytosis but no other features of endocarditis. I have discussed our somewhat frustrating situation with her daughter who again continues to understand our difficulties.
[2018-09-27] MEDS: LORazepam 2 MG/ML VIAL (J2060) IV PRN (19:58)
[2018-09-27] MEDS: GABAPENTIN 100 MG CAP PO SCH (21:00)
[2018-09-27] MEDS: ATORVASTATIN 20 MG TAB PO SCH (21:00)
[2018-09-28] VITALS (8 sets, daily range): BP systolic 138–196; BP diastolic 52–91
[2018-09-28] MEDS: NITROGLYCERIN 2% OINT 1 GM *U/D* PKT TOP SCH ×5 (04:00→20:33)
[2018-09-28] MEDS: ALBUTEROL SULFATE 2.5 MG/0.5 ML INH NEB SOLN INH SCH ×6 (04:00→20:37)
[2018-09-28] MEDS: POTASSIUM CHLORIDE INJ 40 MEQ in D5W 1,000 ML IV SCH (05:09)
[2018-09-28 05:18] LABS: APPEARANCE, URINE HAZY (CLEAR); BACTERIA, URINE AUTO 2+ (NEGATIVE); BILIRUBIN, URINE AUTO NEGATIVE (NEGATIVE); BLOOD, URINE BLOOD NEGATIVE (NEGATIVE); COLOR, URINE YELLOW (YELLOW); GLUCOSE, URINE (UA) AUTO NEGATIVE (NEGATIVE); KETONE, URINE AUTO NEGATIVE (NEGATIVE); LEUKOCYTE ESTERASE, URINE AUTO TRACE (NEGATIVE); MUCUS, URINE SMALL (NEGATIVE); NITRITE, URINE AUTO NEGATIVE (NEGATIVE); PROTEIN, URINE AUTO 1+ mg/dL (NEGATIVE); RBC, URINE AUTO 10 /HPF (0-3); SPECIFIC GRAVITY URINE AUTO 1.013 (1.002-1.035); SQUAMOUS EPITHELIAL CELL UR AU 1 /HPF (0-6); WBC, URINE AUTO 13 /HPF (0-3)
[2018-09-28 05:44] LABS: BASO # 0.1 10^3/uL (0.0-0.2); BASO % 0.3 % (0.0-1.0); EOS # 0.3 10^3/uL (0.0-0.50); EOS % 1.6 % (0.0-3.0); HEMATOCRIT 27.4 % (36.0-47.0); HEMOGLOBIN 8.5 g/dl (12.0-15.5); LYMPH # 1.4 10^3/uL (1.5-4.5); LYMPH % 7.6 % (24.0-44.0); MEAN CORPUSCULAR HEMOGLOBIN 27.4 pg (27.0-33.0); MEAN CORPUSCULAR VOLUME 88.4 fl (80.0-96.0); MONO # 1.3 10^3/uL (0.0-0.8); NEUTROPHILS # 14.9 10^3/uL (1.8-7.7); NEUTROPHILS % 82.9 % (36.0-66.0); PLATELET COUNT, AUTOMATED 265 10^3/uL (150-450); WHITE BLOOD COUNT 17.9 10^3/uL (4.0-10.0)
[2018-09-28] MEDS: SLF 3 ML SYR IV SCH ×3 (05:44→21:37)
[2018-09-28 06:05] LABS: CALCIUM LEVEL 8.3 MG/DL (8.8-10.2); CREATININE FOR GFR 1.16 MG/DL (0.55-1.30); GLOMERULAR FILTRATION RATE 47.4 (>32); MAGNESIUM LEVEL 2.1 MG/DL (1.8-2.4); POTASSIUM SERUM 4.2 MEQ/L (3.5-5.1)
[2018-09-28] MEDS: SUCRALFATE 1 GM TAB PO SCH ×4 (07:30→20:33)
[2018-09-28] MEDS: FERROUS GLUCONATE 324 MG TAB PO SCH (08:41)
[2018-09-28] MEDS: ASPIRIN 325 MG TAB PO SCH (08:41)
[2018-09-28] MEDS: MAGNESIUM OXIDE 400 MG TAB (MAG-OX) PO SCH (08:41)
[2018-09-28] MEDS: PANTOPRAZOLE 40MG TAB (PROTONIX) PO SCH (08:41)
[2018-09-28] MEDS: SERTRALINE HCL 50 MG TAB PO SCH (08:41)
[2018-09-28] MEDS: hydrALAZINE INJ 20 MG/ML VIAL IV PRN ×2 (11:40→20:33)
--- NOTE | 2018-09-28 13:04 | IPNPDOC ---
Text Note Date of Service The patient was seen on 09/28/18. NOTE Subjective: Patient was seen and examined at the bedside. Currently patient only answers "yeah, sure" all questions. Is not appropriately answer or comprehend questions. Overnight, patient had confusion and received Ativan and a bedside sitter. This morning patient was more calm, however, slightly sedated. Objective: Vitals (See below) General: Lying in bed, no acute distress, comfortable, Awake / Alert HEENT: NC, AT CVS: +S1S2 Lungs: Fair air entry b/l, auscultation without wheezing, rhonchi or rales Abdomen: Soft, ND, nontender Extremities: No evidence of edema, - Calf tenderness Neuro: does not move RUE Assessment and plan: RUE weakness - likely 2/2 acute ischemic stroke at left MCA - Still has persistent weakness of RUE - CT head 09/24: Findings consistent with acute / subacute left middle cerebral artery territory infarct. No hemorrhage seen. Old left occipital lobe cortical infarct. Old lacunar infarct left basal ganglia. - Duplex Carotid US 09/26: Significant plaquing on the left and right at 50-69% category narrowing in the left and right ICA by Doppler velocity criteria. - c/w ASA 325; c/w Atorvastatin 40 - c/w PT, OT, Speech therapy - Neurology on consult Difficulty swallowing - 2/2 above - Dietary changes as per speech therapy Acute encephalopathy - possibly 2/2 above, possibly 2/2 infectious etiology - Patient's family have reported that this is not her baseline level of functioning, typically as an outpatient. She is capable of driving - Patient's current mentation has likely progressed as a result of her stroke - Patient remains afebrile and hemodynamically stable - Blood cultures and urine cultures are pending - Urine analysis is consistent with a very mild infection; bacteria are noted - Will start Ceftriaxone for a 3-5 day trial Head laceration - s/p repair - likely 2/2 fall - Initial CT scan 09/23: 1. Mild volume loss and small vessel ischemic changes. 2. No acute intracranial abnormality. Other findings as described above. Right hip / thigh pain - Currently patient does not report any pain - Hip XR 09/23: Negative pelvis bilateral hip study. - c/w PT / OT HTN - s/p Period of permissive HTN - c/w Clonidine patch, c/w Hydralazine PRN Neuropathy - c/w Gabapentin GI prophylaxis - c/w Protonix / Carafate DVT prophylaxis - c/w BARBARA/Sequentials Code status: - DNR Disposition: - Anticipate that she will go to joint terminal attack controller care / NH VS,[place], I+O VS, [place], I+O Laboratory Tests 09/28/18 05:31 Red Blood Count 3.10 L, Mean Corpuscular Volume 88.4, Mean Corpuscular Hemoglobin 27.4, Mean Corpuscular Hemoglobin Concent 31.0 L, Red Cell Di stribution Width 16.3 H, Neutrophils (%) (Auto) 82.9 H, Lymphocytes (%) (Auto) 7.6 L, Monocytes (%) (Auto) 7.0 H, Eosinophils (%) (Auto) 1.6, Basophils (%) (Auto) 0.3, Neutrophils # (Auto) 14.9 H, Lymphocytes # (Auto) 1.4 L, Monocytes # (Auto) 1.3 H, Eosinophils # (Auto) 0.3, Basophils # (Auto) 0.1, Calcium Level 8.3 L Vital Signs Date Time Temp Pulse Resp B/P (MAP) Pulse Ox O2 Delivery O2 Flow Rate FiO2 09/28/18 12:25 97.4 60 18 173/73 (106) 97 2.0 09/23/18 12:46 Nasal Cannula I&O- Last 24 Hours up to 6 AM 09/28/18 06:00 Intake Total 1530 ml Output Total 750 ml Balance 780 ml JHON CALI MD Sep 28, 2018 13:04
[2018-09-28] MEDS ORDERED: FUROSEMIDE 40 MG/4 ML VIAL (J1940) IV ONE (19:00)
[2018-09-28] MEDS: GABAPENTIN 100 MG CAP PO SCH (20:32)
[2018-09-28] MEDS: ATORVASTATIN 20 MG TAB PO SCH (20:32)
--- NOTE | 2018-09-28 23:44 | IPN ---
DATE: 09/28/2018 SUBJECTIVE: Luanne is seen and examined this morning at the bedside. His daughter is present. The patient still remains altered and has been intermittently agitated and receiving Ativan, has continued to refuse oral intake and oral medications. There is a sitter at the bedside. Her Kathleen catheter was removed and she continues on bladder scans Vital signs: Temperature 96.7, pulse 74, respiratory rate 20, blood pressure 179/91, saturating 96% on 2 liters nasal cannula. Intake yesterday was 1410, urine output was and not fully recorded. Weight in the bed scale was not recorded. General: The patient is seen lying in bed, elderly female, frail, in no acute distress, sedated from Ativan, not alert and not oriented. Makes poor eye contact. Tongue is dry. Neck is supple. Jugular veins are not elevated. Heart sounds S1-S2 regular. There is no edema in the peripheries or in the dependent area. Abdomen is soft. There are bowel sounds. Genitourinary: Shows Kathleen catheter was removed. The bladder is not palpable. Respiratory: Bilateral air entry. Skin: Normal temperature and turgor. LABORATORY DATA: Sodium 137, potassium 4.2, bicarbonate 25, BUN 23, creatinine 1.1, magnesium 2.1, hemoglobin 8.5, white count 17. Microbiology blood culture no growth for 24 hours. Urine culture pending. INPATIENT MEDICATIONS. The patient received a dose of Lasix 40 mg IV x1. Her IV fluids are held overnight. Remainder of medications are unchanged from prior. PROBLEMS: 1. Chronic kidney disease (CKD) stage III. Renal function is better than her usual baseline and this is because her home angiotensin receptive terrell and her chronic home diuretics are presently being held. She remains altered and is having minimal oral intake and has been receiving IV fluids for the past couple of days. I see that she is ordered for a dose of Lasix this evening and we will hold IV fluids overnight and reevaluate her in the morning for need of fluid verses diuretics. Her angiotensin receptive terrell can be resumed once she is able to tolerate oral medications. 2. Hypertension, presently of uncontrolled. The patient has a history of difficult to control and resistant hypertension. Presently systolic has been ranging from 140s-180s. She is not able to take her usual oral medications. She continues on clonidine patch and IV hydralazine. She is getting a dose of Lasix this evening and her blood pressures may improve with diuresis and with holding of IV fluids overnight. 3. Urinary retention. Kathleen catheter was removed. Continue with bladder scans and straight catheterization as needed. 4. Hypokalemia, it is resolved with supplementation of potassium in her dextrose containing fluids. Her magnesium is acceptable.
[2018-09-29] MEDS: ALBUTEROL SULFATE 2.5 MG/0.5 ML INH NEB SOLN INH SCH ×6 (03:07→20:00)
[2018-09-29 04:00] VITALS: BP 156/66
[2018-09-29] MEDS: SLF 3 ML SYR IV SCH ×3 (04:17→21:08)
[2018-09-29] MEDS: NITROGLYCERIN 2% OINT 1 GM *U/D* PKT TOP SCH ×6 (04:17→19:52)
[2018-09-29 04:41] LABS: BASO # 0.1 10^3/uL (0.0-0.2); BASO % 0.4 % (0.0-1.0); EOS # 0.4 10^3/uL (0.0-0.50); EOS % 3.1 % (0.0-3.0); HEMATOCRIT 27.4 % (36.0-47.0); HEMOGLOBIN 8.6 g/dl (12.0-15.5); LYMPH # 1.2 10^3/uL (1.5-4.5); LYMPH % 9.8 % (24.0-44.0); MEAN CORPUSCULAR HEMOGLOBIN 27.7 pg (27.0-33.0); MEAN CORPUSCULAR HGB CONC 31.4 g/dl (32.0-36.5); MEAN CORPUSCULAR VOLUME 88.1 fl (80.0-96.0); MONO # 1.1 10^3/uL (0.0-0.8); MONO % 9.1 % (0.0-5.0); NEUTROPHILS # 9.5 10^3/uL (1.8-7.7); NEUTROPHILS % 76.9 % (36.0-66.0); PLATELET COUNT, AUTOMATED 281 10^3/uL (150-450); RED BLOOD COUNT 3.11 10^6/uL (4.00-5.40); WHITE BLOOD COUNT 12.4 10^3/uL (4.0-10.0)
[2018-09-29 04:53] LABS: CALCIUM LEVEL 8.2 MG/DL (8.8-10.2); CREATININE FOR GFR 1.37 MG/DL (0.55-1.30); GLOMERULAR FILTRATION RATE 39.1 (>32); MAGNESIUM LEVEL 2.1 MG/DL (1.8-2.4); POTASSIUM SERUM 4.4 MEQ/L (3.5-5.1)
[2018-09-29] MEDS: SUCRALFATE 1 GM TAB PO SCH ×5 (07:30→21:07)
[2018-09-29 08:00] VITALS: BP 140/62
[2018-09-29] MEDS: MAGNESIUM OXIDE 400 MG TAB (MAG-OX) PO SCH (08:39)
[2018-09-29] MEDS: FERROUS GLUCONATE 324 MG TAB PO SCH (08:39)
[2018-09-29] MEDS: PANTOPRAZOLE 40MG TAB (PROTONIX) PO SCH (08:39)
[2018-09-29] MEDS: SERTRALINE HCL 50 MG TAB PO SCH (08:39)
[2018-09-29] MEDS: ASPIRIN 325 MG TAB PO SCH (08:39)
[2018-09-29 12:00] VITALS: BP 125/58
--- NOTE | 2018-09-29 12:16 | NUR ---
Recommend NPO. D/t pt's current lethargic state, she is pocketing pureed solids and demonstrating delayed swallow, wet voice, & post-swallow throat clear. Per RN, likely d/t dose of Ativan given yesterday. Will reassess as medication wears off. Addendum: 09/29/[address] [facility] Amended: Links added.
--- NOTE | 2018-09-29 12:44 | IPNPDOC ---
Text Note Date of Service The patient was seen on 09/29/18. NOTE Subjective: Patient was seen and examined at the bedside. Patient is seen sitting up in bed, receiving nebulization therapy. Patient's family was present at the bedside and I have addressed all their questions or concerns. Patient does not appear to be in any distress, is unable to communicate effectively, and only reports "yeah" or "yes" to all questions. Objective: Vitals (See below) General: Lying in bed, no acute distress, comfortable, Awake / Alert HEENT: NC, AT CVS: +S1S2 Lungs: Air entry appears to be fair bilaterally without evidence of rhonchi, rales or wheezing Abdomen: Soft, nondistended and nontender Extremities: Lower extremities are free of any edema, - Calf tenderness Assessment and plan: RUE weakness - likely 2/2 acute ischemic stroke at left MCA - Still has persistent weakness of RUE - CT head 09/24: Findings consistent with acute / subacute left middle cerebral artery territory infarct. No hemorrhage seen. Old left occipital lobe cortical infarct. Old lacunar infarct left basal ganglia. - Duplex Carotid US 09/26: Significant plaquing on the left and right at 50-69% category narrowing in the left and right ICA by Doppler velocity criteria. - c/w ASA 325; c/w Atorvastatin 40 - c/w PT, OT, Speech therapy - Neurology on consult Difficulty swallowing - 2/2 above - Dietary changes as per speech therapy Acute encephalopathy - possibly 2/2 above, less likely 2/2 infectious etiology - Patient's family have reported that this is not her baseline level of functioning, typically as an outpatient. She is capable of driving - Patient's current mentation has likely progressed as a result of her stroke - Patient remains afebrile and hemodynamically stable - Blood cultures remain negative at 24 hours - Urine analysis is consistent with a very mild infection; bacteria are noted; Urine cultures remain pending - Will hold off on antibiotic therapy Delirium at night - likely 2/2 sun downing - Will discontinue Ativan for agitation/anxiety - Will start Risperidone QHS Head laceration - s/p repair - likely 2/2 fall - Initial CT scan 09/23: 1. Mild volume loss and small vessel ischemic changes. 2. No acute intracranial abnormality. Other findings as described above. Right hip / thigh pain - Currently patient does not report any pain - Hip XR 09/23: Negative pelvis bilateral hip study. - c/w PT / OT HTN - s/p Period of permissive HTN - c/w Clonidine patch, c/w Hydralazine PRN Neuropathy - c/w Gabapentin GI prophylaxis - c/w Protonix / Carafate DVT prophylaxis - c/w BARBARA/Sequentials Code status: - DNR Disposition: - Anticipate that she will go to [facility] / NH VS,Fishbone, I+O VS, Fishbone, I+O Laboratory Tests 09/29/18 04:22 Red Blood Count 3.11 L, Mean Corpuscular Volume 88.1, Mean Corpuscular Hemoglobin 27.7, Mean Corpuscular Hemoglobin Concent 31.4 L, Red Cell Distribution Width 16.5 H, Neutrophils (%) (Auto) 76.9 H, Lymphocytes (%) (Auto) 9.8 L, Monocytes (%) (Auto) 9.1 H, Eosinophils (%) (Auto) 3.1 H, Basophils (%) (Auto) 0.4, Neutrophils # (Auto) 9.5 H, Lymphocytes # (Auto) 1.2 L, Monocytes # (Auto) 1.1 H, Eosinophils # (Auto) 0.4, Basophils # (Auto) 0.1, Calcium Level 8.2 L Vital Signs Date Time Temp Pulse Resp B/P (MAP) Pulse Ox O2 Delivery O2 Flow Rate FiO2 09/29/18 12:00 2.0 09/29/18 12:00 97.9 73 18 125/58 (80) 99 09/23/18 12:46 Nasal Cannula I&O- Last 24 Hours up to 6 AM 09/29/18 06:00 Intake Total 930 ml Output Total 950 ml Balance -20 ml JHON CALI MD Sep 29, 2018 12:44
[2018-09-29] MEDS: D5W/0.45% SODIUM CHLORIDE 1,000 ML IV SCH (15:21)
[2018-09-29 16:00] VITALS: BP 140/64
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
[2018-09-29 20:00] VITALS: BP 150/70
[2018-09-29] MEDS: risperiDONE 0.25 MG TAB PO SCH ×2 (21:00→21:07)
[2018-09-29] MEDS: GABAPENTIN 100 MG CAP PO SCH ×2 (21:00→21:08)
[2018-09-29] MEDS: ATORVASTATIN 20 MG TAB PO SCH ×2 (21:00→21:07)
[2018-09-29 23:59] VITALS: BP 134/62
[2018-09-30] VITALS (7 sets, daily range): BP systolic 132–212; BP diastolic 53–74
[2018-09-30] MEDS: ALBUTEROL SULFATE 2.5 MG/0.5 ML INH NEB SOLN INH SCH ×6 (04:00→19:36)
[2018-09-30] MEDS: NITROGLYCERIN 2% OINT 1 GM *U/D* PKT TOP SCH ×6 (04:00→20:00)
[2018-09-30] MEDS: SLF 3 ML SYR IV SCH ×3 (04:31→20:07)
[2018-09-30] MEDS: D5W/0.45% SODIUM CHLORIDE 1,000 ML IV SCH (06:51)
[2018-09-30 06:52] LABS: BASO # 0.1 10^3/uL (0.0-0.2); BASO % 0.4 % (0.0-1.0); EOS # 0.3 10^3/uL (0.0-0.50); EOS % 2.5 % (0.0-3.0); HEMOGLOBIN 8.6 g/dl (12.0-15.5); LYMPH # 1.1 10^3/uL (1.5-4.5); LYMPH % 8.6 % (24.0-44.0); MEAN CORPUSCULAR HEMOGLOBIN 28.8 pg (27.0-33.0); MEAN CORPUSCULAR HGB CONC 31.9 g/dl (32.0-36.5); MEAN CORPUSCULAR VOLUME 90.3 fl (80.0-96.0); MONO # 1.1 10^3/uL (0.0-0.8); NEUTROPHILS % 78.9 % (36.0-66.0); PLATELET COUNT, AUTOMATED 260 10^3/uL (150-450); RED BLOOD COUNT 2.99 10^6/uL (4.00-5.40); WHITE BLOOD COUNT 12.7 10^3/uL (4.0-10.0)
[2018-09-30 07:23] LABS: CALCIUM LEVEL 8.4 MG/DL (8.8-10.2); CREATININE FOR GFR 1.17 MG/DL (0.55-1.30); GLOMERULAR FILTRATION RATE 46.9 (>32); MAGNESIUM LEVEL 2.2 MG/DL (1.8-2.4); POTASSIUM SERUM 3.7 MEQ/L (3.5-5.1)
[2018-09-30] MEDS: SUCRALFATE 1 GM TAB PO SCH ×5 (07:30→20:06)
[2018-09-30] MEDS: SERTRALINE HCL 50 MG TAB PO SCH ×2 (08:21→09:00)
[2018-09-30] MEDS: FERROUS GLUCONATE 324 MG TAB PO SCH ×2 (08:21→09:00)
[2018-09-30] MEDS: PANTOPRAZOLE 40MG TAB (PROTONIX) PO SCH ×3 (08:21→09:00)
[2018-09-30] MEDS: ASPIRIN 325 MG TAB PO SCH ×2 (08:21→09:00)
[2018-09-30] MEDS: MAGNESIUM OXIDE 400 MG TAB (MAG-OX) PO SCH ×2 (08:21→09:00)
[2018-09-30] MEDS: LevoFLOXacin IV 750 MG in APPROPRIATE DILUENT 1 EA IV SCH (08:22)
[2018-09-30] MEDS: KCL 20MEQ IN D5/0.45NS 1000ML 1,000 ML IV SCH (11:22)
--- NOTE | 2018-09-30 12:13 | IPNPDOC ---
Text Note Date of Service The patient was seen on 09/30/18. NOTE Subjective: Patient was seen and examined at the bedside. Currently patient is unable to answer questions appropriately. Does not appear to be in any distress. Objective: Vitals (See below) General: Lying in bed, no acute distress, comfortable, Awake / Alert HEENT: NC, AT CVS: +S1S2 Lungs: Air entry appears to be fair bilaterally, no w/r/r Abdomen: Soft, without distension / tenderness Extremities: LE are free of edema , - Calf tenderness Assessment and plan: RUE weakness - likely 2/2 acute ischemic stroke at left MCA - Still has persistent weakness of RUE - CT head 09/24: Findings consistent with acute / subacute left middle cerebral artery territory infarct. No hemorrhage seen. Old left occipital lobe cortical infarct. Old lacunar infarct left basal ganglia. - Duplex Carotid US 09/26: Significant plaquing on the left and right at 50-69% category narrowing in the left and right ICA by Doppler velocity criteria. - c/w ASA 325; c/w Atorvastatin 40 - c/w PT, OT, Speech therapy - Neurology on consult Poor oral intake / Difficulty swallowing - 2/2 above - Currently patient has had improvement in her swallow ability, however has still not taken in much oral intake - Dietary changes as per speech therapy - Will discuss with family about possible PEG tube feeding Acute encephalopathy - possibly 2/2 above, less likely 2/2 infectious etiology - Patient's family have reported that this is not her baseline level of functioning, typically as an outpatient. She is capable of driving - Patient's current mentation has likely progressed as a result of her stroke - Patient remains afebrile and hemodynamically stable - Blood cultures remain negative at 24 hours - Urine analysis is consistent with a very mild infection; bacteria are noted; Urine cultures remain pending - Will hold off on antibiotic therapy Delirium at night - likely 2/2 sun downing - Will discontinue Ativan for agitation/anxiety - c/w Risperidone QHS Head laceration - s/p repair - likely 2/2 fall - Initial CT scan 09/23: 1. Mild volume loss and small vessel ischemic changes. 2. No acute intracranial abnormality. Other findings as described above. Right hip / thigh pain - Currently patient does not report any pain - Hip XR 09/23: Negative pelvis bilateral hip study. - c/w PT / OT HTN - s/p Period of permissive HTN - c/w Clonidine patch, c/w Hydralazine PRN Neuropathy - c/w Gabapentin GI prophylaxis - c/w Protonix / Carafate DVT prophylaxis - c/w BARBARA/Sequentials Code status: - DNR Disposition: - Anticipate that she will go to [facility] care / NH - May require PEG tube placement VS,Fishbone, I+O VS, Fishbone, I+O Laboratory Tests 09/30/18 06:36 Red Blood Count 2.99 L, Mean Corpuscular Volume 90.3, Mean Corpuscular Hemoglobin 28.8, Mean Corpuscular Hemoglobin Concent 31.9 L, Red Cell Distribut ion Width 16.0 H, Neutrophils (%) (Auto) 78.9 H, Lymphocytes (%) (Auto) 8.6 L, Monocytes (%) (Auto) 9.0 H, Eosinophils (%) (Auto) 2.5, Basophils (%) (Auto) 0.4, Neutrophils # (Auto) 10.0 H, Lymphocytes # (Auto) 1.1 L, Monocytes # (Auto) 1.1 H, Eosinophils # (Auto) 0.3, Basophils # (Auto) 0.1, Calcium Level 8.4 L Vital Signs Date Time Temp Pulse Resp B/P (MAP) Pulse Ox O2 Delivery O2 Flow Rate FiO2 09/30/18 10:00 96.3 77 18 158/60 (92) 95 09/30/18 06:00 2.0 I&O- Last 24 Hours up to 6 AM 09/30/18 06:00 Intake Total 420 ml Output Total 750 ml Balance -330 ml JHON CALI MD Sep 30, 2018 12:13
[2018-09-30] MEDS ORDERED: cloNIDine 0.2 MG TAB As Ordered ONE (15:35)
[2018-09-30] MEDS ORDERED: cloNIDine 0.2 MG TAB PO ONE (15:45)
--- NOTE | 2018-09-30 16:27 | IPN ---
DATE: 09/29/2018 SUBJECTIVE: The patient is seen and examined this morning at the bedside. She remains altered and agitated. Has been requiring Ativan intermittently and has had minimal oral intake. She continues with expressive aphasia. Her daughter notes that there are some periods where she seems to be more lucid and responsive, but that this is not consistent. Her blood pressures have improved from prior. VITAL SIGNS: Temperature 97.9, pulse 73, respiratory rate 18, blood pressure 125/58, saturating 99% on 2 liters nasal cannula. Intake yesterday was 1300. Urine output yesterday was 750. Weight in the bed scale today is 50.6 kg. GENERAL: The patient is seen lying in bed. Head of bed elevated. Elderly female in no acute distress. Does not respond appropriately to simple questions and is only inconsistently able to follow simple commands. Extraocular muscles are intact and is moist. Neck is supple. Jugular veins are not elevated. HEART: Sounds are regular, S1, S2. LUNGS: Fairly clear to auscultation, though she is not cooperative with deep breathing. ABDOMEN: Soft and nontender. There are bowel sounds. GENITOURINARY: Kathleen catheter is back in place. EXTREMITIES: Negative for edema, both in the peripheries and in the dependent area. NEUROLOGIC: She has expressive aphasia and right-sided weakness. LABORATORY DATA: White count 12.4, hemoglobin 8.6. Sodium 137, potassium 4.4, BUN 25, creatinine 1.3. INPATIENT MEDICATIONS: She is resumed on D5W with half normal saline (NS) at 60 mL per hour. Remainder of medications are unchanged from prior. PROBLEMS: 1. Chronic kidney disease (CKD), stage III. Renal function is better than her usual baseline. She has poor oral intake and continues on maintenance gentle intravenous (IV) fluids. Her electrolytes and volume status are acceptable. 2. Hypertension, overall improved control as compared to prior. No changes are being made to the current regimen. She is not able to take her usual oral medications and continues on clonidine patch. 3. Urinary retention. Kathleen catheter was replaced. 4. Acute ischemic stroke at left middle cerebral artery (MCA) with ongoing expressive aphasia and minimal oral intake and altered mentation with periods of delirium at night. Discussed with primary team and with the family if something less sedating than Ativan and can be used, she might be able to cooperate a little bit more with the various physical therapy (PT), occupational therapy (OT), and speech therapy services during the daytime.
[2018-09-30] MEDS: risperiDONE 0.25 MG TAB PO SCH (20:04)
[2018-09-30] MEDS: ATORVASTATIN 20 MG TAB PO SCH (20:06)
[2018-09-30] MEDS: GABAPENTIN 100 MG CAP PO SCH (20:06)
[2018-10-01] MEDS: NITROGLYCERIN 2% OINT 1 GM *U/D* PKT TOP SCH ×4 (00:42→12:36)
[2018-10-01 02:00] VITALS: BP 162/54
[2018-10-01] MEDS: ALBUTEROL SULFATE 2.5 MG/0.5 ML INH NEB SOLN INH SCH ×6 (04:00→20:00)
[2018-10-01 06:00] VITALS: BP 162/58
[2018-10-01] MEDS: KCL 20MEQ IN D5/0.45NS 1000ML 1,000 ML IV SCH (06:34)
[2018-10-01] MEDS: SLF 3 ML SYR IV SCH ×3 (06:34→20:26)
[2018-10-01 06:41] LABS: BASO # 0.1 10^3/uL (0.0-0.2); BASO % 0.6 % (0.0-1.0); EOS # 0.5 10^3/uL (0.0-0.50); EOS % 4.5 % (0.0-3.0); HEMATOCRIT 29.1 % (36.0-47.0); HEMOGLOBIN 9.1 g/dl (12.0-15.5); LYMPH # 0.9 10^3/uL (1.5-4.5); LYMPH % 8.7 % (24.0-44.0); MEAN CORPUSCULAR HEMOGLOBIN 28.3 pg (27.0-33.0); MEAN CORPUSCULAR HGB CONC 31.3 g/dl (32.0-36.5); MEAN CORPUSCULAR VOLUME 90.7 fl (80.0-96.0); MONO # 1.1 10^3/uL (0.0-0.8); MONO % 11.1 % (0.0-5.0); NEUTROPHILS # 7.5 10^3/uL (1.8-7.7); NEUTROPHILS % 74.1 % (36.0-66.0); PLATELET COUNT, AUTOMATED 269 10^3/uL (150-450); RED BLOOD COUNT 3.21 10^6/uL (4.00-5.40); WHITE BLOOD COUNT 10.2 10^3/uL (4.0-10.0)
[2018-10-01 06:56] LABS: CALCIUM LEVEL 8.9 MG/DL (8.8-10.2); CREATININE FOR GFR 1.07 MG/DL (0.55-1.30); MAGNESIUM LEVEL 2.2 MG/DL (1.8-2.4); POTASSIUM SERUM 3.8 MEQ/L (3.5-5.1)
[2018-10-01] MEDS: SUCRALFATE 1 GM TAB PO SCH ×4 (08:55→20:26)
[2018-10-01] MEDS: SERTRALINE HCL 50 MG TAB PO SCH (08:56)
[2018-10-01] MEDS: ASPIRIN 325 MG TAB PO SCH (08:56)
[2018-10-01] MEDS: MAGNESIUM OXIDE 400 MG TAB (MAG-OX) PO SCH (08:56)
[2018-10-01] MEDS: PANTOPRAZOLE 40MG TAB (PROTONIX) PO SCH (08:58)
[2018-10-01] MEDS: FERROUS GLUCONATE 324 MG TAB PO SCH (08:58)
[2018-10-01 10:00] VITALS: BP 178/58
--- NOTE | 2018-10-01 11:49 | IPNPDOC ---
Text Note Date of Service The patient was seen on 10/01/18. NOTE Subjective: Patient was seen and examined at the bedside. Patient still displays expressive aphasia. Unable to answer questions appropriately. Patient's daughter and son are present at the bedside. Discussed PEG tube placement with, currently in agreement. Objective: Vitals (See below) General: Lying in bed, no acute distress, comfortable, Awake / Alert HEENT: NC, AT CVS: +S1S2 Lungs: Air entry is fair bilaterally without rhonchi, rales or wheezing Abdomen: Remains soft without distention or tenderness Extremities: LE do not reveal any edema, - Calf tenderness Assessment and plan: RUE weakness - likely 2/2 acute ischemic stroke at left MCA - Still has persistent weakness of RUE - CT head 09/24: Findings consistent with acute / subacute left middle cerebral artery territory infarct. No hemorrhage seen. Old left occipital lobe cortical infarct. Old lacunar infarct left basal ganglia. - Duplex Carotid US 09/26: Significant plaquing on the left and right at 50-69% category narrowing in the left and right ICA by Doppler velocity criteria. - c/w ASA 325; c/w Atorvastatin 40 - c/w PT, OT, Speech therapy - Neurology on consult Poor oral intake / Difficulty swallowing - 2/2 above - Currently patient has had improvement in her swallow ability, however has still not taken in much oral intake - Dietary changes as per speech therapy - Family agrees that patient will need long-term form of nutrition; will consult surgery for PEG tube placement - Dr. Huerta consulted; appreciate their input Acute encephalopathy - possibly 2/2 above, less likely 2/2 infectious etiology - Patient's family have reported that this is not her baseline level of functioning, typically as an outpatient. She is capable of driving - Patient's current mentation has likely regressed as a result of her stroke - Patient remains afebrile and hemodynamically stable UTI - likely 2/2 Enterococcus Faecalis - UA consistent with infection - Urine culture 09/28: Enterococcus Faecalis - Blood cultures remain negative at 72 hours - c/w Levaquin (Day #2) Delirium at night - likely 2/2 sun downing - s/p Ativan for agitation/anxiety - c/w Risperidone QHS Head laceration - s/p repair - likely 2/2 fall - Initial CT scan 09/23: 1. Mild volume loss and small vessel ischemic changes. 2. No acute intracranial abnormality. Other findings as described above. Right hip / thigh pain - Currently patient does not report any pain - Hip XR 09/23: Negative pelvis bilateral hip study. - c/w PT / OT HTN - s/p Period of permissive HTN - c/w Clonidine patch, s/p Hydralazine PRN Neuropathy - c/w Gabapentin GI prophylaxis - c/w Protonix / Carafate DVT prophylaxis - c/w BARBARA/Sequentials Code status: - DNR Disposition: - Anticipate that she will go to [facility] / [facility] - Evaluation for PEG tube placement; possible PPN nutrition today VS,Fishbone, I+O VS, Fishbone, I+O Laboratory Tests 10/01/18 06:06 Red Blood Count 3.21 L, Mean Corpuscular Volume 90.7, Mean Corpuscular Hemoglobin 28.3, Mean Corpuscular Hemoglobin Concent 31.3 L, Red Cell Distribution Width 15.7 H, Neutrophils (%) (Auto) 74.1 H, Lymphocytes (%) (Auto) 8.7 L, Monocytes (%) (Auto) 11.1 H, Eosinophils (%) (Auto) 4.5 H, Basophils (%) (Auto) 0.6, Neutrophils # (Auto) 7.5, Lymphocytes # (Auto) 0.9 L, Monocytes # (Auto) 1.1 H, Eosinophils # (Auto) 0.5, Basophils # (Auto) 0.1, Calcium Level 8.9 Vital Signs Date Time Temp Pulse Resp B/P (MAP) Pulse Ox O2 Delivery O2 Flow Rate FiO2 10/01/18 09:00 2.0 10/01/18 08:57 181/60 10/01/18 06:00 96.5 56 19 95 I&O- Last 24 Hours up to 6 AM 10/01/18 06:00 Intake Total 1300 ml Output Total 900 ml Balance 400 ml JHON CALI MD Oct 01, 2018 11:49
--- NOTE | 2018-10-01 13:43 | IPNPDOC ---
Text Note Date of Service The patient was seen on 10/01/18. NOTE I was asked to see the patient for possibility of placing a gastrostomy feeding tube and this patient to recently suffered a cerebrovascular accident and now is a aphasic. She was not eating well. When I approached the family. The daughter tells me that this morning is able to give her some soft foods including putting, Jell-O and she seems to be more willing to try and they were encouraged by this and would like to try feeding her orally and see if she improves. Certainly they're welcome to do this. There are avenues for hyperalimentation that can be considered include placement of a small bore nasogastric tube for feeding to allow her to continue on eating and removed this once this once it is no longer needed. Please reconsult if there is any changes and the need for gastrostomy tube arises again. VS,Fishbone, I+O VS, Fishbone, I+O Laboratory Tests 10/01/18 06:06 Red Blood Count 3.21 L, Mean Corpuscular Volume 90.7, Mean Corpuscular Hemoglobin 28.3, Mean Corpuscular Hemoglobin Concent 31.3 L, Red Cell Distributi on Width 15.7 H, Neutrophils (%) (Auto) 74.1 H, Lymphocytes (%) (Auto) 8.7 L, Monocytes (%) (Auto) 11.1 H, Eosinophils (%) (Auto) 4.5 H, Basophils (%) (Auto) 0.6, Neutrophils # (Auto) 7.5, Lymphocytes # (Auto) 0.9 L, Monocytes # (Auto) 1.1 H, Eosinophils # (Auto) 0.5, Basophils # (Auto) 0.1, Calcium Level 8.9 Vital Signs Date Time Temp Pulse Resp B/P (MAP) Pulse Ox O2 Delivery O2 Flow Rate FiO2 10/01/18 12:36 180/78 10/01/18 10:00 96.8 72 20 98 2.0 I&O- Last 24 Hours up to 6 AM 10/01/18 05:59 Intake Total 1300 ml Output Total 900 ml Balance 400 ml JOSELO JIMENZE MD Oct 01, 2018 13:42
[2018-10-01 14:00] VITALS: BP 171/58
--- NOTE | 2018-10-01 15:02 | IPN ---
DATE: 10/01/2018 SUBJECTIVE: The patient was seen and examined at the bedside this morning. The patient continues to be on gentle IV fluid hydration. Her family members are also present at the bedside. I was told that the patient started eating a little bit of Jello and a soft diet. However, primary team has discussed with family members about possibly getting a percutaneous endoscopic gastrostomy (PEG) tube placement for more nutrition. Renal function is stable. Creatinine has come down to 1.07 now and hemoglobin is also stable and has improved to 9.1. The patient denies any active complaints at this time. OBJECTIVE: VITAL SIGNS: Temperature is 96.5 degrees Fahrenheit, blood pressure 181/60, pulse is 56, respiratory of 19, saturating 95% on 2 liters via nasal cannula. Intake and output: Urine output recorded is 900 mL yesterday 258 mL so far today since overnight. Weight in the bed scale is not available. PHYSICAL EXAMINATION: GENERAL: The patient is awake, alert, oriented times two laying in bed. No apparent distress. HEAD AND NECK EXAM: Extraocular muscles intact. Pupils equally round and reactive to light. Mucous membranes are moist. NECK: Neck is supple. There is no jugular venous distention (JVD). CARDIOVASCULAR: S1, S2 regular rate. No edema of the bilateral lower extremities. RESPIRATORY: Chest is clear to auscultation bilaterally. Bilateral equal air entry. No rales or rhonchi. ABDOMEN: Soft. Positive bowel sounds. Nontender. No organomegaly. GENITOURINARY: Patient has an indwelling Kathleen catheter. Urine in the bag is clear. MUSCULOSKELETAL: No clubbing or cyanosis. Pulses are 2+. CENTRAL NERVOUS SYSTEM ([employer]): No focal deficit. Power is 5/5 in the left side but she has expressive aphasia and right-sided weakness. LAB REVIEW: CBC showed WBC 10.2, hemoglobin 9.1, platelets are 269. BMP showed sodium 137, potassium 3.8 chloride 106, bicarb 26, BUN 17, creatinine 1.07, calcium is 8.9, magnesium 2.2. CURRENT INPATIENT MEDICATIONS: The patient's medications were all reviewed by me. The patient continues to be on gentle IV fluid hydration with D5 half-normal saline plus 20 mEq KCl at 50 mL an hour. She is also getting IV Levaquin antibiotic. Antihypertensives are being managed by cardiology. ASSESSMENT/PLAN: 1. Chronic kidney disease stage III: Patient's renal function has improved back to her baseline creatinine is down to 1. Continue gentle IV fluid hydration. 2. Hypertension: The patient still has elevated blood pressures. Antihypertensive regimen is being adjusted by cardiology. The patient is currently on clonidine patch I am not escalating the antihypertensives at this time. 3. Urinary retention: The patient continues to be on Kathleen catheter. 4. Enterococcus faecalis urinary tract infection. The patient is currently on Levaquin. DISPOSITION: Patient's renal function is stable. Electrolytes are within the acceptable range. Nephrology service is going to sign off at this moment please call nephrology service for any help in the management of this patient during this hospitalization.
[2018-10-01] MEDS: LOSARTAN 50 MG TAB PO SCH (15:15)
[2018-10-01] MEDS: CARVedilol 12.5 MG TAB PO SCH ×2 (15:16→20:26)
[2018-10-01 18:00] VITALS: BP 190/74
[2018-10-01] MEDS: GABAPENTIN 100 MG CAP PO SCH (20:25)
[2018-10-01] MEDS: HEPARIN SOD (PORCINE) 5000 UNITS/ML VIAL SQ SCH (20:25)
[2018-10-01] MEDS: risperiDONE 0.25 MG TAB PO SCH (20:25)
[2018-10-01] MEDS: ATORVASTATIN 20 MG TAB PO SCH (20:25)
[2018-10-01 22:00] VITALS: BP 164/70
[2018-10-02] MEDS: KCL 20MEQ IN D5/0.45NS 1000ML 1,000 ML IV SCH ×2 (00:58→22:14)
[2018-10-02] MEDS: ALBUTEROL SULFATE 2.5 MG/0.5 ML INH NEB SOLN INH SCH ×7 (03:32→23:34)
[2018-10-02] MEDS: SLF 3 ML SYR IV SCH ×3 (05:12→22:00)
[2018-10-02 06:00] VITALS: BP 168/52
[2018-10-02 06:49] LABS: BASO # 0.1 10^3/uL (0.0-0.2); BASO % 0.7 % (0.0-1.0); EOS % 9.5 % (0.0-3.0); HEMATOCRIT 28.8 % (36.0-47.0); LYMPH # 1.2 10^3/uL (1.5-4.5); LYMPH % 11.3 % (24.0-44.0); MEAN CORPUSCULAR HEMOGLOBIN 27.4 pg (27.0-33.0); MEAN CORPUSCULAR HGB CONC 31.3 g/dl (32.0-36.5); MEAN CORPUSCULAR VOLUME 87.5 fl (80.0-96.0); MONO # 1.3 10^3/uL (0.0-0.8); MONO % 12.4 % (0.0-5.0); NEUTROPHILS # 6.8 10^3/uL (1.8-7.7); NEUTROPHILS % 64.5 % (36.0-66.0); PLATELET COUNT, AUTOMATED 301 10^3/uL (150-450); RED BLOOD COUNT 3.29 10^6/uL (4.00-5.40); WHITE BLOOD COUNT 10.6 10^3/uL (4.0-10.0)
[2018-10-02 07:11] LABS: CALCIUM LEVEL 8.8 MG/DL (8.8-10.2); CREATININE FOR GFR 0.98 MG/DL (0.55-1.30); GLOMERULAR FILTRATION RATE 57.6 (>32); MAGNESIUM LEVEL 1.9 MG/DL (1.8-2.4); POTASSIUM SERUM 3.7 MEQ/L (3.5-5.1)
[2018-10-02] MEDS: SUCRALFATE 1 GM TAB PO SCH ×5 (07:30→21:00)
[2018-10-02] MEDS: PANTOPRAZOLE 40MG TAB (PROTONIX) PO SCH (09:00)
[2018-10-02] MEDS: SERTRALINE HCL 50 MG TAB PO SCH ×2 (09:00→11:01)
[2018-10-02] MEDS: MAGNESIUM OXIDE 400 MG TAB (MAG-OX) PO SCH ×2 (09:00→11:01)
[2018-10-02] MEDS: CARVedilol 12.5 MG TAB PO SCH ×2 (09:00→11:01)
[2018-10-02] MEDS: FERROUS GLUCONATE 324 MG TAB PO SCH (09:00)
[2018-10-02] MEDS: LOSARTAN 50 MG TAB PO SCH ×2 (09:00→11:00)
[2018-10-02] MEDS: amLODIPine 5 MG TAB PO SCH ×2 (09:00→11:00)
[2018-10-02] MEDS: ASPIRIN 325 MG TAB PO SCH ×2 (09:00→10:59)
[2018-10-02] MEDS: LevoFLOXacin IV 750 MG in APPROPRIATE DILUENT 1 EA IV SCH (09:25)
[2018-10-02 10:00] VITALS: BP 150/80
[2018-10-02] MEDS: HEPARIN SOD (PORCINE) 5000 UNITS/ML VIAL SQ SCH ×2 (11:02→22:16)
--- NOTE | 2018-10-02 12:11 | IPNPDOC ---
Text Note Date of Service The patient was seen on 10/02/18. NOTE Subjective: Patient was seen and examined at the bedside. Patient continues to display expressive aphasia and difficulty understanding/following commands. Patient does not appear to be in any acute distress. No family present at the bedside this morning. Objective: Vitals (See below) General: Lying in bed, no acute distress, comfortable, Awake / Alert HEENT: NC, AT CVS: +S1S2 Lungs: Air entry is fair bilaterally. No evidence of rhonchi, rales or wheezing Abdomen: Soft, no evidence of distention or tenderness Extremities: No evidence of edema bilateral lower extremities, - Calf tenderness Assessment and plan: RUE weakness - likely 2/2 acute ischemic stroke at left MCA - Still has persistent weakness of RUE - CT head 09/24: Findings consistent with acute / subacute left middle cerebral artery territory infarct. No hemorrhage seen. Old left occipital lobe cortical infarct. Old lacunar infarct left basal ganglia. - Duplex Carotid US 09/26: Significant plaquing on the left and right at 50-69% category narrowing in the left and right ICA by Doppler velocity criteria. - c/w ASA 325; c/w Atorvastatin 40 - c/w PT, OT, Speech therapy - Neurology on consult - Patient will likely require placement to subacute rehabilitation center, possibly transitioning to long-term care Poor oral intake / Difficulty swallowing - 2/2 above - Currently patient has had improvement in her swallow ability, however has still not taken in much oral intake - Dietary changes as per speech therapy - Initially family had agreed the patient should receive a PEG tube for continued feeding. However, they have changed her mind later that afternoon, one surgery came to evaluate - Dr. Huerta consulted; will hold off on PEG tube placement - Will pursue PEG tube as an outpatient if required Acute encephalopathy - possibly 2/2 above, less likely 2/2 infectious etiology - Patient's family have reported that this is not her baseline level of functioning, typically as an outpatient. She is capable of driving - Patient's current mentation has likely regressed as a result of her stroke - Patient remains afebrile and hemodynamically stable UTI - likely 2/2 Enterococcus Faecalis - Remains hemodynamically stable and afebrile - UA consistent with infection - Urine culture 09/28: Enterococcus Faecalis - Blood cultures remain negative at 72 hours - c/w Levaquin (Day #3) Delirium at night - likely 2/2 sun downing - s/p Ativan for agitation/anxiety - c/w Risperidone QHS Head laceration - s/p repair - likely 2/2 fall - Initial CT scan 09/23: 1. Mild volume loss and small vessel ischemic changes. 2. No acute intracranial abnormality. Other findings as described above. Right hip / thigh pain - Currently patient does not report any pain - Hip XR 09/23: Negative pelvis bilateral hip study. - c/w PT / OT HTN - s/p Period of permissive HTN - c/w Clonidine patch, s/p Hydralazine PRN, s/p Nitroglycerin topical - c/w Losartan, Carvedilol and Amlodipine Neuropathy - c/w Gabapentin GI prophylaxis - c/w Protonix / Carafate DVT prophylaxis - c/w BARBARA/Sequentials Code status: - DNR Disposition: - Anticipate that she will go to intermediate care / NH - Evaluation for PEG tube placement; possible PPN nutrition today VS,Fishbone, I+O VS, Fishbone, I+O Laboratory Tests 10/02/18 05:50 Red Blood Count 3.29 L, Mean Corpuscular Volume 87.5, Mean Corpuscular Hemoglobin 27.4, Mean Corpuscular Hemoglobin Concent 31.3 L, Red Cell Distribution Width 15.4 H, Neutrophils (%) (Auto) 64.5, Lymphocytes (%) (Auto) 11.3 L, Monocytes (%) (Auto) 12.4 H, Eosinophils (%) (Auto) 9.5 H, Basophils (%) (Auto) 0.7, Neutrophils # (Auto) 6.8, Lymphocytes # (Auto) 1.2 L, Monocytes # (Auto) 1.3 H, Eosinophils # (Auto) 1.0 H, Basophils # (Auto) 0.1, Calcium Level 8.8 Vital Signs Date Time Temp Pulse Resp B/P (MAP) Pulse Ox O2 Delivery O2 Flow Rate FiO2 10/02/18 11:01 60 186/69 10/02/18 10:00 97.0 22 95 2.0 I&O- Last 24 Hours up to 6 AM 10/02/18 06:00 Intake Total 1200 ml Output Total 1100 ml Balance 100 ml JHON CALI MD Oct 02, 2018 12:11
[2018-10-02 14:00] VITALS: BP 182/62
[2018-10-02] MEDS: NITROGLYCERIN 2% OINT 1 GM *U/D* PKT TOP SCH ×2 (16:55→22:15)
[2018-10-02 18:00] VITALS: BP 167/42
[2018-10-02 20:00] VITALS: BP 160/58
[2018-10-03] VITALS (9 sets, daily range): BP systolic 135–164; BP diastolic 45–78
[2018-10-03] MEDS: amLODIPine 5 MG TAB PO SCH ×3 (00:04→20:26)
[2018-10-03] MEDS: ATORVASTATIN 20 MG TAB PO SCH ×2 (00:04→20:25)
[2018-10-03] MEDS: risperiDONE 0.25 MG TAB PO SCH (00:04)
[2018-10-03] MEDS: CARVedilol 12.5 MG TAB PO SCH ×3 (00:05→20:25)
[2018-10-03] MEDS: GABAPENTIN 100 MG CAP PO SCH ×2 (00:05→20:25)
[2018-10-03] MEDS: NITROGLYCERIN 2% OINT 1 GM *U/D* PKT TOP SCH ×7 (01:03→23:57)
[2018-10-03] MEDS: ALBUTEROL SULFATE 2.5 MG/0.5 ML INH NEB SOLN INH SCH ×5 (02:57→21:10)
[2018-10-03] MEDS: SLF 3 ML SYR IV SCH ×4 (05:00→22:00)
[2018-10-03 06:03] LABS: BASO # 0.1 10^3/uL (0.0-0.2); BASO % 0.7 % (0.0-1.0); EOS # 0.8 10^3/uL (0.0-0.50); EOS % 8.6 % (0.0-3.0); HEMATOCRIT 30.2 % (36.0-47.0); HEMOGLOBIN 8.8 g/dl (12.0-15.5); LYMPH # 1.4 10^3/uL (1.5-4.5); LYMPH % 14.2 % (24.0-44.0); MEAN CORPUSCULAR HEMOGLOBIN 27.2 pg (27.0-33.0); MEAN CORPUSCULAR HGB CONC 29.1 g/dl (32.0-36.5); MEAN CORPUSCULAR VOLUME 93.5 fl (80.0-96.0); MONO # 1.4 10^3/uL (0.0-0.8); MONO % 14.2 % (0.0-5.0); NEUTROPHILS # 5.8 10^3/uL (1.8-7.7); NEUTROPHILS % 60.1 % (36.0-66.0); PLATELET COUNT, AUTOMATED 253 10^3/uL (150-450); RED BLOOD COUNT 3.23 10^6/uL (4.00-5.40); WHITE BLOOD COUNT 9.6 10^3/uL (4.0-10.0)
[2018-10-03] MEDS: SUCRALFATE 1 GM TAB PO SCH ×4 (07:30→20:26)
[2018-10-03 08:10] LABS: CALCIUM LEVEL 8.8 MG/DL (8.8-10.2); CREATININE FOR GFR 1.06 MG/DL (0.55-1.30); GLOMERULAR FILTRATION RATE 52.6 (>32); POTASSIUM SERUM 4.5 MEQ/L (3.5-5.1)
[2018-10-03] MEDS: HEPARIN SOD (PORCINE) 5000 UNITS/ML VIAL SQ SCH ×3 (09:00→20:26)
[2018-10-03] MEDS: FERROUS GLUCONATE 324 MG TAB PO SCH ×2 (09:00→09:52)
[2018-10-03] MEDS: ASPIRIN 325 MG TAB PO SCH ×2 (09:00→09:54)
[2018-10-03] MEDS: PANTOPRAZOLE 40MG TAB (PROTONIX) PO SCH ×2 (09:00→09:52)
[2018-10-03] MEDS: LOSARTAN 50 MG TAB PO SCH (09:51)
[2018-10-03] MEDS: MAGNESIUM OXIDE 400 MG TAB (MAG-OX) PO SCH (09:51)
[2018-10-03] MEDS: SERTRALINE HCL 50 MG TAB PO SCH (09:52)
[2018-10-03] MEDS: cloNIDine HCL 0.2 MG/24 HR PATCH TOP SCH (09:53)
--- NOTE | 2018-10-03 11:16 | IPNPDOC ---
Text Note Date of Service The patient was seen on 10/03/18. NOTE Subjective: Patient was seen and examined at the bedside. Currently patient remains incoherent, is only able to answer "yeah" and "nope," , however inappropriately. Discussed with family yesterday and they are in agreement for PEG tube placement. Objective: Vitals (See below) General: Lying in bed, no acute distress, comfortable, Awake / Alert HEENT: NC, AT CVS: +S1S2 Lungs: Again air entry is fair bilaterally without evidence of rhonchi, rales or wheezing Abdomen: Remains soft without distention or tenderness Extremities: Lower extremities are free of any edema, - Calf tenderness Assessment and plan: RUE weakness - likely 2/2 acute ischemic stroke at left MCA - Still has persistent weakness of RUE - CT head 09/24: Findings consistent with acute / subacute left middle cerebral artery territory infarct. No hemorrhage seen. Old left occipital lobe cortical infarct. Old lacunar infarct left basal ganglia. - Duplex Carotid US 09/26: Significant plaquing on the left and right at 50-69% category narrowing in the left and right ICA by Doppler velocity criteria. - c/w ASA 325; c/w Atorvastatin 40 - c/w PT, OT, Speech therapy - likely will require placement to subacute rehabilitation/transition to long-term care - Neurology on consult Poor oral intake / Difficulty swallowing - 2/2 above - Patient has not been taking in much intake orally - Dietary changes as per speech therapy - Family has again decided to again pursue PEG tube placement - Dr. Huerta consulted; anticipate possible PEG tube placement today Acute encephalopathy - possibly 2/2 above, less likely 2/2 infectious etiology - Patient's family have reported that this is not her baseline level of functioning, typically as an outpatient. She is capable of driving - Patient's current mentation has likely regressed as a result of her stroke - Patient remains afebrile and hemodynamically stable UTI - likely 2/2 Enterococcus Faecalis - Remains hemodynamically stable and afebrile - UA consistent with infection - Urine culture 09/28: Enterococcus Faecalis - Blood cultures remain negative at 5 days - c/w Levaquin (Day #4) Delirium at night - likely 2/2 sun downing - s/p Ativan for agitation/anxiety - c/w Risperidone QHS Head laceration - s/p repair - likely 2/2 fall - Initial CT scan 09/23: 1. Mild volume loss and small vessel ischemic changes. 2. No acute intracranial abnormality. Other findings as described above. Right hip / thigh pain - Currently patient does not report any pain - Hip XR 09/23: Negative pelvis bilateral hip study. - c/w PT / OT HTN - s/p Period of permissive HTN - c/w Clonidine patch, s/p Hydralazine PRN, s/p Nitroglycerin topical - c/w Losartan, Carvedilol and Amlodipine Neuropathy - c/w Gabapentin GI prophylaxis - c/w Protonix / Carafate DVT prophylaxis - c/w BARBARA/Sequentials Code status: - DNR Disposition: - PEG tube placement today - ORLIN placement there after VS,Fishbone, I+O VS, Fishbone, I+O Laboratory Tests 10/03/18 05:50 Red Blood Count 3.23 L, Mean Corpuscular Volume 93.5, Mean Corpuscular Hemoglobin 27.2, Mean Corpuscular Hemoglobin Concent 29.1 L, Red Cell Distr ibution Width 15.4 H, Neutrophils (%) (Auto) 60.1, Lymphocytes (%) (Auto) 14.2 L, Monocytes (%) (Auto) 14.2 H, Eosinophils (%) (Auto) 8.6 H, Basophils (%) (Auto) 0.7, Neutrophils # (Auto) 5.8, Lymphocytes # (Auto) 1.4 L, Monocytes # (Auto) 1.4 H, Eosinophils # (Auto) 0.8 H, Basophils # (Auto) 0.1, Calcium Level 8.8 Vital Signs Date Time Temp Pulse Resp B/P (MAP) Pulse Ox O2 Delivery O2 Flow Rate FiO2 10/03/18 09:51 58 10/03/18 09:51 177/81 10/03/18 06:00 96.3 16 95 2.0 I&O- Last 24 Hours up to 6 AM 10/03/18 06:00 Intake Total 800 ml Output Total 875 ml Balance -75 ml JHON CALI MD Oct 03, 2018 11:16
[2018-10-03] MEDS ORDERED: LIDOCAINE 2% INJ 100 MG/5 ML SDV (FOR ANES.) As Ordered ONE (16:50)
[2018-10-03] MEDS ORDERED: PROPOFOL 500 MG/50 ML VIAL As Ordered ONE (16:50)
[2018-10-03] MEDS ORDERED: fentaNYL 100 MCG/2 ML INJECTION (J3010) As Ordered ONE (16:51)
[2018-10-03] MEDS ORDERED: MIDAZOLAM INJ 2 MG/2 ML VIAL (J2250) As Ordered ONE (16:51)
--- NOTE | 2018-10-03 17:03 | CR.PDOC ---
General Surgery Consultation Date of Consultation 10/03/18 History and Physical CONSULT REPORT FOR: hospitalist service REASON FOR CONSULTATION: for placement of gastrostomy tube HISTORY OF PRESENT ILLNESS: 83 F admitted to the hospital for CVA with aphasia, not eating enough since admission and thus we are asked to place a feeding access for enteral nutrition PAST MEDICAL HISTORY: 1. CVA 2. Hypothyroidism 3. Chronic diastolic congestive heart failure 4. Obstructive sleep apnea 5. Chronic kidney disease 6. Pulmonary hypertension PAST SURGICAL HISTORY: INCLUDES: 1. open cholecystectomy via right subcostal incision 2. Axillary bifemoral bypass 3. Hysterectomy ALLERGIES: Please see below. HOME MEDICATIONS: Please see below. REVIEW OF SYSTEMS: Unobtainable. Patient is aphasic ANCILLARIES: . LABORATORY DATA: Please see below. IMAGING STUDIES: . IMPRESSION AND PLAN: CVA with aphasia malnutrition in need of enteral access Patient will be scheduled today for placement of gastrostomy feeding tube for enteral access via upper endoscopy. Details of the procedure, risks and benefits explained to her daughter who is acting as her health care proxy. Patient unable to give consent on her own due to aphasia. Vital Signs Vital Signs Date Time Temp Pulse Resp B/P (MAP) Pulse Ox O2 Delivery O2 Flow Rate FiO2 10/03/18 14:00 98.2 55 17 135/45 (75) 95 2.0 I&Os I&O- Last 24 Hours up to 6 AM 10/03/18 06:00 Intake Total 800 ml Output Total 875 ml Balance -75 ml Laboratory Data Labs 24H Laboratory Tests 2 10/03/18 05:50: Immature Granulocyte % (Auto) 2.2, White Blood Count 9.6, Red Blood Count 3.23L, Hemoglobin 8.8L, Hematocrit 30.2L, Mean Corpuscular Volume 93.5, Mean Corpuscular Hemoglobin 27.2, Mean Corpuscular Hemoglobin Concent 29.1L, Red Cell Distribution Width 15.4H, Platelet Count 253, Neutrophils (%) (Auto) 60.1, Lymphocytes (%) (Auto) 14.2L, Monocytes (%) (Auto) 14.2H, Eosinophils (%) (Auto) 8.6H, Basophils (%) (Auto) 0.7, Neutrophils # (Auto) 5.8, Lymphocytes # (Auto) 1.4L, Monocytes # (Auto) 1.4H, Eosinophils # (Auto) 0.8H, Basophils # (Auto) 0.1, Nucleated Red Blood Cells % (auto) 0.0, Anion Gap 10, Glomerular Filtration Rate 52.6, Blood Urea Nitrogen 12, Creatinine 1.06, Sodium Level 139, Potassium Level 4.5#, Chloride Level 111H, Carbon Dioxide Level 18L, Calcium Level 8.8, Magnesium Level 2.0 CBC/BMP Laboratory Tests 10/03/18 05:50 Red Blood Count 3.23 L, Mean Corpuscular Volume 93.5, Mean Corpuscular H emoglobin 27.2, Mean Corpuscular Hemoglobin Concent 29.1 L, Red Cell Distribution Width 15.4 H, Neutrophils (%) (Auto) 60.1, Lymphocytes (%) (Auto) 14.2 L, Monocytes (%) (Auto) 14.2 H, Eosinophils (%) (Auto) 8.6 H, Basophils (%) (Auto) 0.7, Neutrophils # (Auto) 5.8, Lymphocytes # (Auto) 1.4 L, Monocytes # (Auto) 1.4 H, Eosinophils # (Auto) 0.8 H, Basophils # (Auto) 0.1, Calcium Level 8.8 Microbiology Microbiology 09/27/18 Blood Culture - Final, Complete NO GROWTH AFTER 5 DAYS 09/27/18 Blood Culture - Final, Complete NO GROWTH AFTER 5 DAYS 09/28/18 Urine Culture - Final, Complete Enterococcus Faecalis Home Medications Scheduled Amlodipine Besylate (Amlodipine Besylate) 5 Mg Tab, 5 MG PO BID, (Reported) Aspirin (Aspirin EC) 325 Mg Tablet.dr, 325 MG PO DAILY, (Reported) Atorvastatin Calcium (Atorvastatin Calcium) 40 Mg Tab, 40 MG PO QHS, (Reported) Calcium/Vitamin D (Calcium 500-Vit D3 200 Tablet) 1 Each Tablet, 1 TAB PO DAILY, (Reported) Carvedilol (Carvedilol) 12.5 Mg Tab, 12.5 MG PO BID, (Reported) Clonidine (Clonidine) 0.2 Mg Patch.tdwk, 1 EA TOP Mo@09 Ferrous Gluconate (Ferrous Gluconate) 324 Mg Tab, 324 MG PO DAILY, (Reported) Fluticasone/Vilanterol (Breo Ellipta 200-25 Mcg INH) 1 Each Blst.w.dev, 1 PUFF INH DAILY, (Reported) Gabapentin (Gabapentin) 100 Mg Capsule, 300 MG PO QHS, (Reported) Isosorbide Dinitrate (Isosorbide Dinitrate) 20 Mg Tablet, 20 MG GT BID Levothyroxine Sodium (Levothyroxine Sodium) 75 Mcg Tablet, 75 MCG PO DAILY, (Reported) Loratadine (Loratadine) 10 Mg Tablet, 10 MG PO DAILY, (Reported) Magnesium Oxide (Magnesium Oxide) 400 Mg Tab, 400 MG PO DAILY, (Reported) Multivit-Minerals/Folic Acid (Adult Multivitamin Gummies) 1 Chw Chw, 1 CHW PO DA REJI, (Reported) Omeprazole (Omeprazole) 40 Mg Capsule.dr, 40 MG PO DAILY, (Reported) Sertraline Hcl (Sertraline HCl) 50 Mg Tab, 50 MG PO DAILY, (Reported) Sucralfate (Sucralfate) 1 Gm Tablet, 1 GM PO ACHS, (Reported) Umeclidinium [place] (Incruse Ellipta) 62.5 Mcg/Inh Inh, 1 PUFF INH DAILY, (Reported) Scheduled PRN Albuterol Sulfate (Proair Hfa) 108 Mcg/Act Aer, 2 PUFF INH QID PRN for SHORTNESS OF BREATH, (Reported) Allergies Coded Allergies: shellfish derived (Verified Allergy, Unknown, 09/23/18) JOSELO JIMENEZ MD Oct 03, 2018 17:03
[2018-10-03] MEDS ORDERED: UNASYN 1.5 GM VIAL As Ordered ONE (17:04)
[2018-10-03] MEDS ORDERED: AMPICILLIN SOD/SULBACTAM SOD 3 GM in D5W MINI-BAG PLUS 100 ML IV ONE (17:15)
[2018-10-03] MEDS ORDERED: LIDOCAINE 1% MDV 20ML VIAL XX ONE (17:46)
--- NOTE | 2018-10-03 17:57 | ROOR ---
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 Inpatient 2. Inpatient Requesting Provider: Medicines: Monitored Anesthesia Care Complications: No immediate complications. Procedure: Pre-Anesthesia Assessment: - Prior to the procedure, a History and Physical was performed, and patient medications and allergies were reviewed. The patient is unable to give consent secondary to the patient's altered mental status. The risks and benefits of the procedure and the sedation options and risks were discussed with the patient's daughter. All questions were answered and informed consent was obtained. Patient identification and proposed procedure were verified by the physician, the nurse and the travel guide in the procedure room. Mental Status Examination: alert but confused. Airway Examination: normal oropharyngeal airway and neck mobility. Respiratory Examination: clear to auscultation. CV Examination: normal. Prophylactic Antibiotics: The patient requires prophylactic antibiotics for planned PEG placement. The patient received antibiotic therapy today, before the procedure started. Prior Anticoagulants: The patient has taken aspirin, last dose was 1 day prior to procedure. ASA Grade Assessment: III - A patient with severe systemic disease. After reviewing the risks and benefits, the patient was deemed in satisfactory condition to undergo the procedure. The anesthesia plan was to use monitored anesthesia care (MAC). Immediately prior to administration of medications, the patient was re-assessed for adequacy to receive sedatives. The heart rate, respiratory rate, oxygen saturations, blood pressure, adequacy of pulmonary ventilation, and response to care were monitored throughout the procedure. The physical status of the patient was re-assessed after the procedure. The Endoscope was introduced through the mouth, and advanced to the second part of duodenum. The upper GI endoscopy was accomplished without difficulty. The patient tolerated the procedure fairly well. Findings: The examined esophagus was normal. The entire examined stomach was normal. The patient was placed in the supine position for PEG placement. The stomach was insufflated to appose gastric and abdominal klein. A site was located in the body of the stomach with excellent transillumination and manual external pressure for placement. The abdominal wall was marked and prepped in a sterile manner. The area was anesthetized with 3 mL of 1% lidocaine. The trocar needle was introduced through the abdominal wall and into the stomach under direct endoscopic view. A snare was introduced through the endoscope and opened in the gastric lumen. The guide wire was passed through the trocar and into the open snare. The snare was closed around the guide wire. The endoscope and snare were removed, pulling the wire out through the mouth. A skin incision was made at the site of needle insertion. The externally removable 20 Fr Ac-Cook gastrostomy tube was lubricated. The G-tube was passed over the guide wire through the mouth, and into the stomach. The trocar needle was removed, and the gastrostomy tube was pulled out from the stomach through the skin. The guide wire was removed, and the external bumper attached to the gastrostomy tube. The feeding tube was then cut to an appropriate length. The final position of the gastrostomy tube was confirmed by relook endoscopy, and skin marking noted to be 3 cm at the external bumper. The final tension and compression of the abdominal wall by the PEG tube and external bumper were checked and revealed that the bumper was loose and lightly touching the skin. The feeding tube was capped, and the tube site was cleaned and dressed. The examined duodenum was normal. Impression: - Normal esophagus. - Normal stomach. - Normal examined duodenum. - An externally removable PEG placement was successfully completed. - No specimens collected. Recommendation: - Please follow the post-PEG recommendations including: change dressing once per day, dry dressing only, NPO x4 hrs then water today, may use PEG today for meds and water and may use PEG tomorrow for feedings. Scar Huerta MD Scar Huerta MD 10/03/2018 5:57:12 PM Electronically signed by Scar Huerta MD Number of Addenda: 0 Note Initiated On: 10/03/2018 5:03 PM Estimated Blood Loss: Estimated blood loss was minimal.
[2018-10-03] MEDS ORDERED: KCL 20MEQ IN D5/.45NACL 1000ML As Ordered ONE (18:39)
[2018-10-03] MEDS ORDERED: LR 1,000 ML IV SCH (18:45)
[2018-10-03] MEDS ORDERED: ONDANSETRON 4MG/2ML VIAL (J2405) IV PRN (18:45)
[2018-10-03] MEDS: KCL 20MEQ IN D5/0.45NS 1000ML 1,000 ML IV SCH (18:59)
[2018-10-03] MEDS ORDERED: ACETAMINOPHEN TAB 650MG DOSE (2X325MG) PEG PRN (21:00)
[2018-10-04] MEDS: ALBUTEROL SULFATE 2.5 MG/0.5 ML INH NEB SOLN INH SCH ×7 (00:17→22:49)
[2018-10-04 00:45] VITALS: BP 140/58
[2018-10-04] MEDS: NITROGLYCERIN 2% OINT 1 GM *U/D* PKT TOP SCH ×6 (04:28→23:37)
[2018-10-04] MEDS: SLF 3 ML SYR IV SCH ×3 (05:43→21:04)
[2018-10-04 06:00] VITALS: BP 125/52
[2018-10-04 06:16] LABS: BASO # 0.1 10^3/uL (0.0-0.2); BASO % 0.4 % (0.0-1.0); EOS # 0.4 10^3/uL (0.0-0.50); EOS % 3.3 % (0.0-3.0); HEMATOCRIT 26.3 % (36.0-47.0); HEMOGLOBIN 8.1 g/dl (12.0-15.5); LYMPH # 1.4 10^3/uL (1.5-4.5); LYMPH % 11.4 % (24.0-44.0); MEAN CORPUSCULAR HEMOGLOBIN 27.8 pg (27.0-33.0); MEAN CORPUSCULAR HGB CONC 30.8 g/dl (32.0-36.5); MEAN CORPUSCULAR VOLUME 90.4 fl (80.0-96.0); MONO # 1.1 10^3/uL (0.0-0.8); MONO % 8.7 % (0.0-5.0); NEUTROPHILS # 9.1 10^3/uL (1.8-7.7); NEUTROPHILS % 74.8 % (36.0-66.0); PLATELET COUNT, AUTOMATED 247 10^3/uL (150-450); RED BLOOD COUNT 2.91 10^6/uL (4.00-5.40); WHITE BLOOD COUNT 12.1 10^3/uL (4.0-10.0)
[2018-10-04 06:41] LABS: CALCIUM LEVEL 8.6 MG/DL (8.8-10.2); CREATININE FOR GFR 1.28 MG/DL (0.55-1.30); GLOMERULAR FILTRATION RATE 42.3 (>32); MAGNESIUM LEVEL 1.9 MG/DL (1.8-2.4); POTASSIUM SERUM 4.6 MEQ/L (3.5-5.1)
[2018-10-04] MEDS: CARVedilol 12.5 MG TAB PO SCH ×2 (09:00→20:57)
[2018-10-04 10:00] VITALS: BP 121/55
--- NOTE | 2018-10-04 10:02 | IPNPDOC ---
Date Seen The patient was seen on 10/04/18. Progress Note Subjective: Patient was seen and examined at the bedside. s/p PEG 10/03/18. conference concierge consulted for tube feed recommendations. c/o slight abd discomfort, no nausea, vomiting, fever, or chills. Objective: Vitals (See below) General: Lying in bed, no acute distress, comfortable, Awake / Alert HEENT: NC, AT no facial asymmetry. CVS: +S1S2 RRR Lungs: Again air entry is fair bilaterally without evidence of rhonchi, rales or wheezing Abdomen: Remains soft without distention or tenderness Extremities: Lower extremities are free of any edema, - Calf tenderness Neuro: (+) receptive and fluent aphasia ,speech word salad. unable to follow commands. move left arm and both legs equally. She has 0/5 strength in right arm. No facial weakness. Tongue and uvula are midline. Memory could not be assessed. Sensory and cerebellar testing could not be performed. gait deferred LABORATORY DATA, IMAGING STUDIES, MICROBIOLOGY: PLS SEE BELOW Assessment and plan: Luanne Pedraza is an 83-year-old woman who was admitted at [facility] after a fall. She lives with his son. The patient has been using a walker and cane inside the house. She does not leave the house too much. The patient was getting out of her bed when she fell. She hit her head on the floor. She had a laceration on her scalp requiring orly. Her CT scan of head was unremarkable initially. She had a repeat CT scan of head yesterday morning. This second CT scan of head showed a medium to large left parietal and frontal acute ischemic stroke in posterior division of left middle cerebral artery. The patient is unable to provide any meaningful history. History was obtained from the patient's family who was present during my visit with her. Her daughter and sons were present in the room. They do not report any neck or back pain. They did not report any headaches. They stated that the patient had a stroke in 2017, which may have affected her right side. She was admitted at [facility]. She also has a loop recorder due to her ischemic stroke. She has history of chronic kidney disease. Her creatinine was 1.88 and has decreased to 1.03. Her GFR has improved from 28% to above 50%. Her hemoglobin was found to be 7.1 and it increased to 8.9. Platelet count was 274 with normal white blood counts (WBCs). The patient is confused and is not able to provide much history. She appears to have a receptive aphasia with inability to comprehend, but fluent speech without sentence structure. acute ischemic stroke at left MCA - Still has persistent weakness of RUE - CT head 09/24: Findings consistent with acute / subacute left middle cerebral artery territory infarct. No hemorrhage seen. Old left occipital lobe cortical infarct. Old lacunar infarct left basal ganglia. - Duplex Carotid US 09/26: Significant plaquing on the left and right at 50-69% category narrowing in the left and right ICA by Doppler velocity criteria. - c/w ASA 325; c/w Atorvastatin 40 - c/w PT, OT, Speech therapy - likely will require placement to subacute rehabilitation/transition to long-term care - Neurology on consult Dysphagia due to CVA - Patient has not been taking in much intake orally - Dietary changes as per speech therapy - Family has again decided to again pursue PEG tube placement - Dr. Huerta consulted; 10/03/18 PEG tube placement -conference concierge for tube feed recommendations Acute encephalopathy -due to CVA and UTI - Patient's family have reported that this is not her baseline level of functioning, typically as an outpatient. She is capable of driving - Patient's current mentation has likely regressed as a result of her stroke - Patient remains afebrile and hemodynamically stable UTI with Enterococcus Faecalis - Remains hemodynamically stable and afebrile - UA consistent with infection - Urine culture 09/28: Enterococcus Faecalis - Blood cultures remain negative at 5 days - c/w Levaquin Delirium at night - likely 2/2 sun downing - s/p Ativan for agitation/anxiety - c/w Risperidone QHS Head laceration - s/p repair - likely 2/2 fall - Initial CT scan 09/23: 1. Mild volume loss and small vessel ischemic changes. 2. No acute intracranial abnormality. Other findings as described above. Right hip / thigh pain - Currently patient does not report any pain - Hip XR 09/23: Negative pelvis bilateral hip study. - c/w PT / OT HTN - s/p Period of permissive HTN - c/w Clonidine patch, s/p Hydralazine PRN, s/p Nitroglycerin topical - c/w Losartan, Carvedilol and Amlodipine Neuropathy - c/w Gabapentin GI prophylaxis - c/w Protonix / Carafate DVT prophylaxis - c/w BARBARA/Sequentials Code status: - DNR Disposition: subacute rehab placement VS, I&O, 24H, Fishbone Vital Signs/I&O Vital Signs Date Time Temp Pulse Resp B/P (MAP) Pulse Ox O2 Delivery O2 Flow Rate FiO2 10/04/18 06:00 97.4 47 15 125/52 (76) 98 2.0 I&O- Last 24 Hours up to 6 AM 10/04/18 06:00 Intake Total 1180 ml Output Total 525 ml Balance 655 ml Laboratory Data 24H LABS Laboratory Tests 2 10/03/18 19:55: Bedside Glucose (Misc Panel) 104 10/04/18 05:50: Immature Granulocyte % (Auto) 1.4, White Blood Count 12.1H, Red Blood Count 2.91L, Hemoglobin 8.1L, Hematocrit 26.3L, Mean Corpuscular Volume 90.4, Mean Corpuscular Hemoglobin 27.8, Mean Corpuscular Hemoglobin Concent 30.8L, Red Cell Distribution Width 15.3H, Platelet Count 247, Neutrophils (%) (Auto) 74.8H, Lymphocytes (%) (Auto) 11.4L, Monocytes (%) (Auto) 8.7H, Eosinophils (%) (Auto) 3.3H, Basophils (%) (Auto) 0.4, Neutrophils # (Auto) 9.1H, Lymphocytes # (Auto) 1.4L, Monocytes # (Auto) 1.1H, Eosinophils # (Auto) 0.4, Basophils # (Auto) 0.1, Nucleated Red Blood Cells % (auto) 0.0, Anion Gap 4L, Glomerular Filtration Rate 42.3, Blood Urea Nitrogen 15, Creatinine 1.28, Sodium Level 137, Potassium Level 4.6, Chloride Level 107, Carbon Dioxide Level 26, Calcium Level 8.6L, Magnesium Level 1.9 CBC/BMP Laboratory Tests 10/04/18 05:50 Red Blood Count 2.91 L, Mean Corpuscular Volume 90.4, Mean Corpuscular Hemoglobin 27.8, Mean Corpuscular Hemoglobin Concent 30.8 L, Red Cell Distribution Width 15.3 H, Neutrophils (%) (Auto) 74.8 H, Lymphocytes (%) (Auto) 11.4 L, Monocytes (%) (Auto) 8.7 H, Eosinophils (%) (Auto) 3.3 H, Basophils (%) (Auto) 0.4, Neutrophils # (Auto) 9.1 H, Lymphocytes # (Auto) 1.4 L, Monocytes # (Auto) 1.1 H, Eosinophils # (Auto) 0.4, Basophils # (Auto) 0.1, Calcium Level 8.6 L Microbiology Microbiology 09/27/18 Blood Culture - Final, Complete NO GROWTH AFTER 5 DAYS 09/27/18 Blood Culture - Final, Complete NO GROWTH AFTER 5 DAYS 09/28/18 Urine Culture - Final, Complete Enterococcus Faecalis ELIZABETH AMBRIZ MD Oct 04, 2018 09:30
[2018-10-04] MEDS: LevoFLOXacin IV 750 MG in APPROPRIATE DILUENT 1 EA IV SCH (10:31)
[2018-10-04] MEDS: amLODIPine 5 MG TAB PO SCH ×2 (10:32→20:57)
[2018-10-04] MEDS: SUCRALFATE 1 GM TAB PO SCH ×4 (10:33→20:57)
[2018-10-04] MEDS: ASPIRIN 325 MG TAB PO SCH (10:33)
[2018-10-04] MEDS: HEPARIN SOD (PORCINE) 5000 UNITS/ML VIAL SQ SCH ×2 (10:33→20:55)
[2018-10-04] MEDS: SERTRALINE HCL 50 MG TAB PO SCH (10:33)
[2018-10-04] MEDS: MAGNESIUM OXIDE 400 MG TAB (MAG-OX) PO SCH (10:33)
[2018-10-04] MEDS: LOSARTAN 50 MG TAB PO SCH (10:34)
[2018-10-04] MEDS: PANTOPRAZOLE 40MG INJ (PROTONIX) (C9113) IV SCH (10:34)
[2018-10-04] MEDS: FERROUS SULFATE 300MG/5ML UDC LIQUID PO SCH (12:34)
[2018-10-04 14:00] VITALS: BP 152/47
[2018-10-04] MEDS: KCL 20MEQ IN D5/0.45NS 1000ML 1,000 ML IV SCH (16:19)
[2018-10-04 18:00] VITALS: BP 125/50
[2018-10-04] MEDS: ATORVASTATIN 20 MG TAB PO SCH (20:56)
[2018-10-04] MEDS: GABAPENTIN 100 MG CAP PO SCH (20:56)
[2018-10-04 22:00] VITALS: BP 158/56
[2018-10-05 02:00] VITALS: BP 138/45
[2018-10-05] MEDS: ALBUTEROL SULFATE 2.5 MG/0.5 ML INH NEB SOLN INH SCH ×5 (03:16→20:03)
[2018-10-05] MEDS: SLF 3 ML SYR IV SCH ×3 (03:38→20:54)
[2018-10-05] MEDS: NITROGLYCERIN 2% OINT 1 GM *U/D* PKT TOP SCH ×2 (03:49→08:05)
[2018-10-05 06:00] VITALS: BP 159/58
[2018-10-05] MEDS: FERROUS SULFATE 300MG/5ML UDC LIQUID PO SCH (08:05)
[2018-10-05] MEDS: LOSARTAN 50 MG TAB PO SCH (08:06)
[2018-10-05] MEDS: HEPARIN SOD (PORCINE) 5000 UNITS/ML VIAL SQ SCH ×2 (08:06→20:54)
[2018-10-05] MEDS: SUCRALFATE 1 GM TAB PO SCH ×4 (08:06→20:54)
[2018-10-05] MEDS: CARVedilol 12.5 MG TAB PO SCH ×2 (08:06→20:54)
[2018-10-05] MEDS: MAGNESIUM OXIDE 400 MG TAB (MAG-OX) PO SCH (08:06)
[2018-10-05] MEDS: SERTRALINE HCL 50 MG TAB PO SCH (08:06)
[2018-10-05] MEDS: ASPIRIN 325 MG TAB PO SCH (08:06)
[2018-10-05] MEDS: PANTOPRAZOLE 40MG INJ (PROTONIX) (C9113) IV SCH (08:07)
[2018-10-05] MEDS: amLODIPine 5 MG TAB PO SCH ×2 (08:07→20:54)
--- NOTE | 2018-10-05 09:09 | IPNPDOC ---
Date Seen The patient was seen on 10/05/18. Progress Note Subjective: Patient was seen and examined at the bedside. resumed oral diet for taste. s/p PEG 10/03/18. lockstitcher consulted for tube feed recommendations. c/o slight abd discomfort, no nausea, vomiting, fever, or chills. still with occasional word salad, when asked what she wants to eat, says small. when asked how she wants her eggs, she says "one." Objective: Vitals (See below) General: Lying in bed, no acute distress, comfortable, Awake / Alert HEENT: NC, AT no facial asymmetry. CVS: +S1S2 RRR Lungs: Again air entry is fair bilaterally without evidence of rhonchi, rales or wheezing Abdomen: Remains soft without distention or tenderness Extremities: Lower extremities are free of any edema, - Calf tenderness Neuro: (+) receptive and fluent aphasia ,speech word salad. unable to follow commands. move left arm and both legs equally. She has 0/5 strength in right arm. No facial weakness. Tongue and uvula are midline. Memory could not be assessed. Sensory and cerebellar testing could not be performed. gait deferred LABORATORY DATA, IMAGING STUDIES, MICROBIOLOGY: PLS SEE BELOW Assessment and plan: Luanne Pedraza is an 83-year-old woman who was admitted at [facility] after a fall. She lives with his son. The patient has been using a walker and cane inside the house. She does not leave the house too much. The patient was getting out of her bed when she fell. She hit her head on the floor. She had a laceration on her scalp requiring orly. Her CT scan of head was unremarkable initially. She had a repeat CT scan of head yesterday morning. This second CT scan of head showed a medium to large left parietal and frontal acute ischemic stroke in posterior division of left middle cerebral artery. The patient is unable to provide any meaningful history. History was obtained from the patient's family who was present during my visit with her. Her daughter and sons were present in the room. They do not report any neck or back pain. They did not report any headaches. They stated that the patient had a stroke in 2017, which may have affected her right side. She was admitted at [facility]. She also has a loop recorder due to her ischemic stroke. She has history of chronic kidney disease. Her creatinine was 1.88 and has decreased to 1.03. Her GFR has improved from 28% to above 50%. Her hemoglobin was found to be 7.1 and it increased to 8.9. Platelet count was 274 with normal white blood counts (WBCs). The patient is confused and is not able to provide much history. She appears to have a receptive aphasia with inability to comprehend, but fluent speech without sentence structure. acute ischemic stroke at left MCA - Still has persistent weakness of RUE - CT head 09/24: Findings consistent with acute / subacute left middle cerebral artery territory infarct. No hemorrhage seen. Old left occipital lobe cortical infarct. Old lacunar infarct left basal ganglia. - Duplex Carotid US 09/26: Significant plaquing on the left and right at 50-69% category narrowing in the left and right ICA by Doppler velocity criteria. - c/w ASA 325; c/w Atorvastatin 40 - c/w PT, OT, Speech therapy - likely will require placement to subacute rehabilitation/transition to long-term care - Neurology on consult Dysphagia due to CVA - Patient has not been taking in much intake orally - Dietary changes as per speech therapy - Family has again decided to again pursue PEG tube placement - Dr. Huerta consulted; 10/03/18 PEG tube placement -lockstitcher for tube feed recommendations Acute encephalopathy -due to CVA and UTI - Patient's family have reported that this is not her baseline level of functioning, typically as an outpatient. She is capable of driving - Patient's current mentation has likely regressed as a result of her stroke - Patient remains afebrile and hemodynamically stable UTI with Enterococcus Faecalis - Remains hemodynamically stable and afebrile - UA consistent with infection - Urine culture 09/28: Enterococcus Faecalis - Blood cultures remain negative at 5 days - c/w Levaquin Delirium at night - likely 2/2 sun downing - s/p Ativan for agitation/anxiety - c/w Risperidone QHS Head laceration - s/p repair - likely 2/2 fall - Initial CT scan 09/23: 1. Mild volume loss and small vessel ischemic changes. 2. No acute intracranial abnormality. Other findings as described above. Right hip / thigh pain - Currently patient does not report any pain - Hip XR 09/23: Negative pelvis bilateral hip study. - c/w PT / OT HTN - s/p Period of permissive HTN - c/w Clonidine patch, s/p Hydralazine PRN, s/p Nitroglycerin topical - c/w Losartan, Carvedilol and Amlodipine Neuropathy - c/w Gabapentin GI prophylaxis - c/w Protonix / Carafate DVT prophylaxis - c/w BARBARA/Sequentials Code status: - DNR Disposition: subacute rehab placement VS, I&O, 24H, Fishbone Vital Signs/I&O Vital Signs Date Time Temp Pulse Resp B/P (MAP) Pulse Ox O2 Delivery O2 Flow Rate FiO2 10/05/18 08:06 70 10/05/18 08:05 146/50 10/05/18 06:00 97.5 20 94 1.0 I&O- Last 24 Hours up to 6 AM 10/05/18 06:00 Intake Total 2200 ml Output Total 1550 ml Balance 650 ml Laboratory Data Microbiology Microbiology 09/27/18 Blood Culture - Final, Complete NO GROWTH AFTER 5 DAYS 09/27/18 Blood Culture - Final, Complete NO GROWTH AFTER 5 DAYS 09/28/18 Urine Culture - Final, Complete Enterococcus Faecalis ELIZABETH AMBRIZ MD Oct 05, 2018 08:47
[2018-10-05] MEDS ORDERED: CLON0.2D6 TOP (09:14)
[2018-10-05] MEDS ORDERED: ISOS20TAB GT (09:15)
[2018-10-05 10:00] VITALS: BP 132/44
[2018-10-05] MEDS: ISOSORBIDE DIN. (ISORDIL) 20 MG TAB PO SCH ×2 (11:48→20:54)
[2018-10-05] MEDS: KCL 20MEQ IN D5/0.45NS 1000ML 1,000 ML IV SCH (11:49)
[2018-10-05 14:00] VITALS: BP 119/49
[2018-10-05 18:00] VITALS: BP 121/48
[2018-10-05] MEDS: GABAPENTIN 100 MG CAP PO SCH (20:53)
[2018-10-05] MEDS: ATORVASTATIN 20 MG TAB PO SCH (20:53)
[2018-10-05 22:00] VITALS: BP 158/56
[2018-10-06 02:00] VITALS: BP 146/67
[2018-10-06] MEDS: ALBUTEROL SULFATE 2.5 MG/0.5 ML INH NEB SOLN INH SCH ×4 (04:00→11:06)
[2018-10-06] MEDS: SLF 3 ML SYR IV SCH (04:50)
[2018-10-06 06:00] VITALS: BP 155/70
[2018-10-06] MEDS ORDERED: LevoFLOXacin 750 MG TABLET PO SCH (06:00)
[2018-10-06] MEDS: PANTOPRAZOLE 40MG INJ (PROTONIX) (C9113) IV SCH (08:31)
[2018-10-06] MEDS: CARVedilol 12.5 MG TAB PO SCH (08:32)
[2018-10-06] MEDS: MAGNESIUM OXIDE 400 MG TAB (MAG-OX) PO SCH (08:32)
[2018-10-06] MEDS: HEPARIN SOD (PORCINE) 5000 UNITS/ML VIAL SQ SCH (08:32)
[2018-10-06 08:33] VITALS: BP 155/70
[2018-10-06] MEDS: SERTRALINE HCL 50 MG TAB PO SCH (08:33)
[2018-10-06] MEDS: SUCRALFATE 1 GM TAB PO SCH ×2 (08:33→12:57)
[2018-10-06] MEDS: LOSARTAN 50 MG TAB PO SCH (08:33)
[2018-10-06] MEDS: amLODIPine 5 MG TAB PO SCH (08:33)
[2018-10-06] MEDS: ISOSORBIDE DIN. (ISORDIL) 20 MG TAB PO SCH (08:33)
[2018-10-06] MEDS: ASPIRIN 325 MG TAB PO SCH (08:33)
[2018-10-06] MEDS: FERROUS SULFATE 300MG/5ML UDC LIQUID PO SCH (08:34)
[2018-10-06 10:00] VITALS: BP 125/60
--- NOTE | 2018-10-06 10:59 | DS.PDOC ---
Discharge Summary General Date of Admission Sep 26, 2018 at 19:48 Date of Discharge October 06, 2018 Discharge Summary PROCEDURES PERFORMED DURING STAY: PEG tube -dr nicholas CONSULTANTS: NEUROLOGY GENERAL SURGERY DISCHARGE DIAGNOSES: acute ischemic stroke at left MCA Failure to thrive s/p PEG Acute encephalopathy -due to CVA and UTI UTI with Enterococcus Faecalis Delirium at night - likely 2/2 sun downing tion - s/p repair - likely 2/2 fall Right hip / thigh pain HTN Neuropathy DISCHARGE MEDS: pls see below HISTORY OF PRESENTING ILLNESS: Luanne Pedraza is an 83-year-old woman who was admitted at [facility] after a fall. She lives with his son. The patient has been using a walker and cane inside the house. She does not leave the house too much. The patient was getting out of her bed when she fell. She hit her head on the floor. She had a laceration on her scalp requiring orly. Her CT scan of head was unremarkable initially. She had a repeat CT scan of head yesterday morning. This second CT scan of head showed a medium to large left parietal and frontal acute ischemic stroke in posterior division of left middle cerebral artery. The patient is unable to provide any meaningful history. History was obtained from the patient's family who was present during my visit with her. Her daughter and sons were present in the room. They do not report any neck or back pain. They did not report any headaches. They stated that the patient had a stroke in 2017, which may have affected her right side. She was admitted at [facility]. She also has a loop recorder due to her ischemic stroke. She has history of chronic kidney disease. Her creatinine was 1.88 and has decreased to 1.03. Her GFR has improved from 28% to above 50%. Her hemoglobin was found to be 7.1 and it increased to 8.9. Platelet count was 274 with normal white blood counts (WBCs). The patient is confused and is not able to provide much history. She appears to have a receptive aphasia with inability to comprehend, but fluent speech without sentence structure. HOSPITAL COURSE: acute ischemic stroke at left MCA - Still has persistent weakness of RUE - CT head 09/24: Findings consistent with acute / subacute left middle cerebral artery territory infarct. No hemorrhage seen. Old left occipital lobe cortical infarct. Old lacunar infarct left basal ganglia. - Duplex Carotid US 09/26: Significant plaquing on the left and right at 50-69% category narrowing in the left and right ICA by Doppler velocity criteria. - c/w ASA 325; c/w Atorvastatin 40 - c/w PT, OT, Speech therapy - likely will require placement to subacute rehabilitation/transition to long-term care - Neurology on consult Dysphagia due to CVA - Patient has not been taking in much intake orally - Dietary changes as per speech therapy - Family has again decided to again pursue PEG tube placement - Dr. Huerta consulted; 10/03/18 PEG tube placement -dial printer for tube feed recommendations Acute encephalopathy -due to CVA and UTI - Patient's family have reported that this is not her baseline level of functioning, typically as an outpatient. She is capable of driving - Patient's current mentation has likely regressed as a result of her stroke - Patient remains afebrile and hemodynamically stable UTI with Enterococcus Faecalis - Remains hemodynamically stable and afebrile - UA consistent with infection - Urine culture 09/28: Enterococcus Faecalis - Blood cultures remain negative at 5 days - c/w Levaquin Delirium at night - likely 2/2 sun downing - s/p Ativan for agitation/anxiety - c/w Risperidone QHS Head laceration - s/p repair - likely 2/2 fall - Initial CT scan 09/23: 1. Mild volume loss and small vessel ischemic changes. 2. No acute intracranial abnormality. Other findings as described above. Right hip / thigh pain - Currently patient does not report any pain - Hip XR 09/23: Negative pelvis bilateral hip study. - c/w PT / OT HTN - s/p Period of permissive HTN - c/w Clonidine patch, s/p Hydralazine PRN, s/p Nitroglycerin topical - c/w Losartan, Carvedilol and Amlodipine Neuropathy - c/w Gabapentin GI prophylaxis - c/w Protonix / Carafate DVT prophylaxis - c/w BARBARA/Sequentials Code status: - DNR Disposition: subacute rehab placement DISCHARGE PHYSICAL EXAMINATION: Vitals (See below) General: Lying in bed, no acute distress, comfortable, Awake / Alert HEENT: NC, AT no facial asymmetry. CVS: +S1S2 RRR Lungs: Again air entry is fair bilaterally without evidence of rhonchi, rales or wheezing Abdomen: Remains soft without distention or tenderness Extremities: Lower extremities are free of any edema, - Calf tenderness Neuro: (+) receptive and fluent aphasia ,speech word salad. unable to follow commands. move left arm and both legs equally. She has 0/5 strength in right arm. No facial weakness. Tongue and uvula are midline. Memory could not be assessed. Sensory and cerebellar testing could not be performed. gait deferred LABORATORY DATA, IMAGING STUDIES, MICROBIOLOGY: PLS SEE BELOW Vital Signs/I&Os Vital Signs Date Time Temp Pulse Resp B/P (MAP) Pulse Ox O2 Delivery O2 Flow Rate FiO2 10/06/18 10:00 97.7 56 16 125/60 (81) 99 1.0 I&O- Last 24 Hours up to 6 AM 10/06/18 06:00 Intake Total 1880 ml Output Total 700 ml Balance 1180 ml Microbiology Microbiology 09/27/18 Blood Culture - Final, Complete NO GROWTH AFTER 5 DAYS 09/27/18 Blood Culture - Final, Complete NO GROWTH AFTER 5 DAYS 09/28/18 Urine Culture - Final, Complete Enterococcus Faecalis Discharge Medications Scheduled Amlodipine Besylate (Amlodipine Besylate) 5 Mg Tab, 5 MG PO BID, (Reported) Aspirin (Aspirin EC) 325 Mg Tablet.dr, 325 MG PO DAILY, (Reported) Atorvastatin Calcium (Atorvastatin Calcium) 40 Mg Tab, 40 MG PO QHS, (Reported) Calcium/Vitamin D (Calcium 500-Vit D3 200 Tablet) 1 Each Tablet, 1 TAB PO DAILY, (Reported) Carvedilol (Carvedilol) 12.5 Mg Tab, 12.5 MG PO BID, (Reported) Clonidine (Clonidine) 0.2 Mg Patch.tdwk, 1 EA TOP Mo@09 Ferrous Gluconate (Ferrous Gluconate) 324 Mg Tab, 324 MG PO DAILY, (Reported) Fluticasone/Vilanterol (Breo Ellipta 200-25 Mcg INH) 1 Each Blst.w.dev, 1 PUFF INH DAILY, (Reported) Gabapentin (Gabapentin) 100 Mg Capsule, 300 MG PO QHS, (Reported) Isosorbide Dinitrate (Isosorbide Dinitrate) 20 Mg Tablet, 20 MG GT BID Levothyroxine Sodium (Levothyroxine Sodium) 75 Mcg Tablet, 75 MCG PO DAILY, (Reported) Loratadine (Loratadine) 10 Mg Tablet, 10 MG PO DAILY, (Reported) Magnesium Oxide (Magnesium Oxide) 400 Mg Tab, 400 MG PO DAILY, (Reported) Multivit-Minerals/Folic Acid (Adult Multivitamin Gummies) 1 Chw Chw, 1 CHW PO DAILY, (Reported) Omeprazole (Omeprazole) 40 Mg Capsule.dr, 40 MG PO DAILY, (Reported) Sertraline Hcl (Sertraline HCl) 50 Mg Tab, 50 MG PO DAILY, (Reported) Sucralfate (Sucralfate) 1 Gm Tablet, 1 GM PO ACHS, (Reported) Umeclidinium [place] (Incruse Ellipta) 62.5 Mcg/Inh Inh, 1 PUFF INH DAILY, (Reported) Scheduled PRN Albuterol Sulfate (Proair Hfa) 108 Mcg/Act Aer, 2 PUFF INH QID PRN for SHORTNESS OF BREATH, (Reported) Allergies Coded Allergies: shellfish derived (Verified Allergy, Unknown, 09/23/18) ELIZABETH AMBRIZ MD Oct 06, 2018 10:59
== END 2018-10-06 13:06 | DRG 604 ==
LOC: M ED 03:19 → M ED INP 09:53 → M MSPAV 14:00 → M PCU 09-24 12:45 → OBSVTOIN 09-26 19:48 → M MSPAV 09-30 02:39
PROVIDERS: ADMIT Internal Medicine; ATTEND General Practice
PROC: 30233N1 Transfusion of Nonautologous Red Blood Cells into Peripheral Vein, Percutaneous Approach (ICD-10-PCS; 2018-09-24)
PROC: 0DH64UZ Insertion of Feeding Device into Stomach, Percutaneous Endoscopic Approach (ICD-10-PCS; principal; 2018-10-03 10:00)
DX: S01.01XA Laceration without foreign body of scalp, initial encounter (principal); I63.312 Cerebral infarction due to thrombosis of left middle cerebral artery; G93.40 Encephalopathy, unspecified; N17.9 Acute kidney failure, unspecified; N39.0 Urinary tract infection, site not specified; I69.351 Hemiplegia and hemiparesis following cerebral infarction affecting right dominant side; I50.32 Chronic diastolic (congestive) heart failure; I13.0 Hypertensive heart and chronic kidney disease with heart failure and stage 1 through stage 4 chronic kidney disease, or unspecified chronic kidney disease; D62 Acute posthemorrhagic anemia; J98.11 Atelectasis; I69.320 Aphasia following cerebral infarction; G62.9 Polyneuropathy, unspecified; Z66 Do not resuscitate; Z79.899 Other long term (current) drug therapy; Z79.82 Long term (current) use of aspirin; Z91.013 Allergy to seafood; E03.9 Hypothyroidism, unspecified; G47.33 Obstructive sleep apnea (adult) (pediatric); N18.3 Chronic kidney disease, stage 3 (moderate); I27.20 Pulmonary hypertension, unspecified; I25.10 Atherosclerotic heart disease of native coronary artery without angina pectoris; M71.21 Synovial cyst of popliteal space [Baker], right knee; Z87.891 Personal history of nicotine dependence; I73.9 Peripheral vascular disease, unspecified; D63.1 Anemia in chronic kidney disease; I08.0 Rheumatic disorders of both mitral and aortic valves; E87.6 Hypokalemia